=== PATIENT | male | born 1955 | race American Indian/Alaskan Native ===

== ENCOUNTER 2016-11-23 14:42 | Emergency (ER) | payer MEDICAID, OTHER ==
--- NOTE | 2016-11-23 14:59 | EDM.PDOC ---
ED HISTORY OF PRESENT ILLNESS - General Chief Complaint: Cardiovascular Problem Stated Complaint: DEFIBULATOR PROBLEMS Time Seen by Provider: 11/23/16 14:57 Source of Information: Reports: Patient History Limitations: Reports: No limitations - History of Present Illness INITIAL COMMENTS - FREE TEXT/NARRATIVE: 61 yo [place] Male w/ Implantable Defibrillator X 6 yrs c/o of a burning sensation and a humming sound @ 1400 hours. Pt. last interrogation of defibrillator 2016. Pt. denies shocks. Pt. admits to pain at area of defibrillator and goes to left shoulder and left side of neck. Pt. denies any N &V and No Sweating or SOB Symptom Onset Date: 11/23/16 Symptom Onset Time: 14:00 Timing/Duration: Reports: Hour(s): Severity: moderate Location, General: Reports: chest Quality: Reports: Burning (in area of defibrillator) - Related Data Allergies/ADRs: Allergies Allergy/AdvReac Type Severity Reaction Status Date / Time amoxicillin [Amoxicillin] Allergy Hives Verified 09/09/16 19:39 metronidazole [From Flagyl] Allergy Hives Verified 09/09/16 19:39 Metronidazole HCl Allergy Hives Verified 09/09/16 19:39 [From Flagyl] Home Meds: Home Meds Aspirin [Aspirin EC] 325 mg PO DAILY 09/13/13 [History] DULoxetine [Cymbalta] 30 mg PO DAILY 09/13/13 [History] Gabapentin [Neurontin] 300 mg PO BID 09/13/13 [History] Metoprolol Succinate [Toprol XL] 50 mg PO DAILY 09/13/13 [History] Multivitamin [Multivitamins] 1 each PO DAILY 09/13/13 [History] Simvastatin [Zocor] 10 mg PO DAILY 09/13/13 [History] Amiodarone HCl [Pacerone] 200 mg PO DAILY 02/11/15 [History] oxyCODONE HCl/Acetaminophen [oxyCODONE-Acetaminophen 10-325] 1 tab PO Q4HR PRN 07/18/16 [History] Levothyroxine Sodium [Synthroid] 25 mcg PO DAILY 08/10/16 [History] Clopidogrel [Plavix] 75 mg PO DAILY 09/09/16 [History] Past Medical History - Past Health History Medical/Surgical History: Denies Medical/Surgical History HEENT History: Reports: Impaired vision Other HEENT History: wears glasses Cardiovascular History: Reports: Angina, Arrhythmia, Automatic implantable cardioverter defibrillators, CAD, High cholesterol, Hypertension, [place], Pacemaker , Stents Respiratory History: Reports: Intubation, previous Gastrointestinal History: Reports: Cholelithiasis Genitourinary History: Reports: Chronic renal insuffiency, Other (see below) Other Genitourinary History: questionable kidney failure. Only 1 kidney, gave the other one away. Musculoskeletal History: Reports: Back pain, chronic, Fracture, Osteoarthritis Other Musculoskeletal History: Rt. shoulder reconstructed. Neurological History: Reports: CVA Psychiatric History: Reports: Anxiety, Depression, Panic attack, PTSD Endocrine/Metabolic History: Reports: Diabetes, type II, Obesity/BMI 30+ Hematologic History: Reports: None Immunologic History: Reports: None Dermatologic History: Reports: Cellulitis - Infectious Disease History Infectious Disease History: Reports: Hepatitis C - Past Surgical History Cardiovascular Surgical History: Reports: AICD, Pacer GI Surgical History: Reports: Appendectomy, Cholecystectomy Male Surgical History: Reports: Nephrectomy Social & Family History - Family History Family Medical History: Unobtainable Cardiac: Reports: Angina, CAD, Heart failure, High cholesterol, Hypertension, [place] GI: Reports: Cholelithiasis : Reports: Dialysis Neurological: Reports: CVA Endocrine/Metabolic: Reports: Diabetes, type II, Obesity/MBI 30+ - Tobacco Use Smoking Status *Q: Former Smoker Years of Tobacco use: 7 Packs/Tins Daily: 0.1 Used Tobacco, but Quit: No Month Tobacco Last Used: 02/18/14 Second Hand Smoke Exposure: No - Caffeine Use Caffeine Use: Reports: Coffee - Alcohol Use Days Per Week of Alcohol Use: 0 - Recreational Drug Use Recreational Drug Use: No Recreational Drug Type: Reports: Benzodiazepines, Marijuana/Hashish, Methamphetamine, Oxycodone Recreational Drug Use Frequency: Binges - Living Situation & Occupation Living situation: Reports: with family Occupation: unemployed ED ROS GENERAL - Review of Systems Review Of Systems: See Below Constitutional: Reports: no symptoms HEENT: Reports: No symptoms Respiratory: Reports: No Symptoms Cardiovascular: Reports: No symptoms Endocrine: Reports: no symptoms GI/Abdominal: Reports: No symptoms : Reports: no symptoms Musculoskeletal: Reports: muscle pain (left upper chest wall, shoulder and neck area) Skin: Reports: no symptoms Neurological: Reports: No Symptoms Psychiatric: Reports: No symptoms Hematologic/Lymphatic: Reports: no symptoms Immunologic: Reports: no symptoms ED EXAM, GENERAL - Physical Exam Exam: See Below Exam Limited By: No limitations General Appearance: alert, WD/WN, no apparent distress Eye Exam: bilateral eye: PERRL Ears: normal external exam Nose: normal inspection Throat/Mouth: Normal inspection, Normal lips Head: atraumatic, normocephalic Neck: normal inspection, supple, non-tender, full range of motion Respiratory/Chest: no respiratory distress, lungs clear Cardiovascular: normal peripheral pulses, regular rate, rhythm, no edema, no gallop, no JVD, no murmur, no rub Peripheral Pulses: 2+: carotid (L), carotid (R) GI/Abdominal: normal bowel sounds, soft, non tender Back Exam: normal inspection, full range of motion Extremities: normal inspection, normal range of motion, non-tender, no pedal edema, normal capillary refill Neurological: alert, oriented, CN II-XII intact, normal cognition Psychiatric: normal affect, normal mood Skin Exam: Warm, Dry, Intact, Normal color Lymphatic: no adenopathy Course - Vital Signs Last Recorded V/S: Last Vital Signs Temp 36.4 C 11/23/16 14:44 Pulse 62 11/23/16 14:44 Resp 16 11/23/16 14:44 BP 145/91 H 11/23/16 14:44 Pulse Ox 99 11/23/16 14:44 - Orders/Labs/Meds Orders: Active Orders 24 hr Category Date Time Status EKG 12 Lead [EKG Documentation Completion] [RC] URGENT Care 11/23/16 14:45 Active Chest 1V Frontal [CR] Urgent Exams 11/23/16 14:58 Taken Sodium Chloride 0.9% [Normal Saline] 1,000 ml Med 11/23/16 15:00 Active IV ASDIRECTED Medication Orders Sodium Chloride (Normal Saline) 1,000 mls @ 125 mls/hr IV ASDIRECTED CIELO Last Admin: 11/23/16 15:21 Dose: 125 mls/hr Labs: Laboratory Tests 11/23/16 11/23/16 11/23/16 Range/Units 15:05 15:05 15:05 WBC 5.9 (5.0-10.0) 10^3/uL RBC 4.93 (4.6-6.2) 10^6/uL Hgb 15.5 (14.0-18.0) g/dL Hct 45.0 (40.0-54.0) % MCV 91.3 (80-100) fL MCH 31.4 (27.0-34.0) pg MCHC 34.4 (33.0-35.0) g/dL Plt Count 163 (150-450) 10^3/uL Neut % (Auto) 59.4 (42.2-75.2) % Lymph % (Auto) 28.4 (20.5-50.1) % [place] % (Auto) 6.3 (2-8) % Eos % (Auto) 5.6 H (1.0-3.0) % Baso % (Auto) 0.3 (0.0-1.0) % PT 9.9 (9.0-12.0) SEC INR 1.0 (0.9-1.2) D-Dimer, Quantitative 147 (0-400) ng/mL Sodium 139 (135-145) mmol/L Potassium 4.4 (3.6-5.0) mmol/L Chloride 107 (101-111) mmol/L Carbon Dioxide 25.0 (21.0-31.0) mmol/L Anion Gap 11.4 BUN 12 (7-18) mg/dL Creatinine 1.0 (0.6-1.3) mg/dL Est Cr Clr Drug Dosing 71.74 mL/min Estimated GFR (MDRD) > 60 BUN/Creatinine Ratio 12.00 Glucose 122 H (74-105) mg/dL Calcium 8.9 (8.4-10.2) mg/dl Total Bilirubin 1.0 (0.2-1.0) mg/dL AST 41 (10-42) IU/L ALT 66 H (10-60) IU/L Alkaline Phosphatase 95 (42-121) IU/L Troponin I < 0.02 (0.00-0.02) ng/ml Total Protein 7.3 (6.7-8.2) g/dl Albumin 3.8 (3.2-5.5) g/dl Globulin 3.5 Albumin/Globulin Ratio 1.09 Meds: Medications Generic Name Dose Route Start Last Admin Trade Name Freq PRN Reason Stop Dose Admin Sodium Chloride 1,000 mls @ 125 mls/hr 11/23/16 15:00 11/23/16 15:21 Normal Saline IV 125 mls/hr ASDIRECTED CIELO Administration Departure - Departure Time of Disposition: 16:10 Disposition: Home, Self-Care 01 Condition: good Clinical Impression: Non-cardiac chest pain Forms: ED Department Discharge Additional Instructions: Rest For Anxiety - Try Ativan .5mg TID # 10 F/U w/ PCP - My Orders Last 24 Hours: My Active Orders 11/23/16 14:45 EKG 12 Lead [EKG Documentation Completion] [RC] URGENT 11/23/16 14:58 Chest 1V Frontal [CR] Urgent 11/23/16 15:00 Sodium Chloride 0.9% [Normal Saline] 1,000 ml IV ASDIRECTED - Assessment/Plan Last 24 Hours: My Active Orders 11/23/16 14:45 EKG 12 Lead [EKG Documentation Completion] [RC] URGENT 11/23/16 14:58 Chest 1V Frontal [CR] Urgent 11/23/16 15:00 Sodium Chloride 0.9% [Normal Saline] 1,000 ml IV ASDIRECTED
[2016-11-23] MEDS ORDERED: Sodium Chloride 0.9% 1,000 ML IV SCH (15:00)
[2016-11-23 15:16] VITALS: BP 145/91
[2016-11-23 15:33] LABS: CHLORIDE,CL 107 mmol/L (101-111); SODIUM,NA 139 mmol/L (135-145)
[2016-11-23] MEDS ORDERED: LORazepam 0.5 MG Tab PO ONE (16:50)
[2016-11-23] MEDS ORDERED: LORazepam 0.5 MG Tab ONE (16:50)
--- NOTE | 2016-12-02 10:09 | EKG ---
11/23/2016 - RADHA REDD - TIME: 1444 hours. EKG is paced rhythm. No other comments made because of the paced rhythm. [facility] /[id number]
== END 2016-11-23 17:45 | disposition home or self-care (01) ==
LOC: DL.ED 14:42
DX: R07.89 Other chest pain (principal); I25.10 Atherosclerotic heart disease of native coronary artery without angina pectoris; E78.00 Pure hypercholesterolemia, unspecified; I10 Essential (primary) hypertension; I25.2 Old myocardial infarction; M19.90 Unspecified osteoarthritis, unspecified site; F41.9 Anxiety disorder, unspecified; F32.9 Major depressive disorder, single episode, unspecified; E11.9 Type 2 diabetes mellitus without complications; E66.9 Obesity, unspecified; Z79.82 Long term (current) use of aspirin; Z79.899 Other long term (current) drug therapy; Z86.73 Personal history of transient ischemic attack (TIA), and cerebral infarction without residual deficits; Z90.49 Acquired absence of other specified parts of digestive tract; Z87.891 Personal history of nicotine dependence; Z88.1 Allergy status to other antibiotic agents; Z88.8 Allergy status to other drugs, medicaments and biological substances
CPT/HCPCS: 36415; 71010; 80053; 84484; 85025; 85379; 85610; 93005; 99284; J7030; A9270-GY

== ENCOUNTER 2016-12-25 21:36 | Emergency (ER) | payer MEDICAID, OTHER ==
[2016-12-25 21:56] VITALS: BP 166/82
[2016-12-25] MEDS ORDERED: Mupirocin Oint 22 GM Tube ONE (23:13)
[2016-12-25] MEDS ORDERED: Mupirocin Oint 22 GM Tube TOP ONE (23:13)
--- NOTE | 2016-12-25 23:13 | EDM.PDOC ---
ED HPI Skin/Rash - General Chief Complaint: Skin Complaint Stated Complaint: RETAINING FLUIDS/BREAKING OUT ON RIGHT LEG [id number] Time Seen by Provider: 12/25/16 21:55 Source: Reports: Patient History Limitations: Reports: No limitations - History of Present Illness INITIAL COMMENTS - FREE TEXT/NARRATIVE: c/o rash to lower legs, abdomen arms and buttock fold. has had rash to lower legs previously but past 3 days increasing areas on wrists moving up to forearms , notes [employer], similar area to back of his legs. Itching with red areas. legs feel swollen around red areas. No fevers. Pacemaker replaced on 12/10. 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 Location, Skin: Reports: abdomen, upper extremity, right, upper extremity, left , lower extremity, right, lower extremity, left Quality: Reports: Itching, Same as previous episode (kian wesley) Severity: mild Associated Symptoms: Denies: fever/chills - Related Data Allergies Allergy/AdvReac Type Severity Reaction Status Date / Time amoxicillin [Amoxicillin] Allergy Hives Verified 12/25/16 21:46 metronidazole [From Flagyl] Allergy Hives Verified 12/25/16 21:46 Metronidazole HCl Allergy Hives Verified 12/25/16 21:46 [From Flagyl] Home Meds: Ambulatory Orders Medication Instructions Recorded Confirmed Aspirin [Aspirin EC] 325 mg PO DAILY 09/13/13 12/25/16 DULoxetine [Cymbalta] 30 mg PO DAILY 09/13/13 12/25/16 Gabapentin [Neurontin] 300 mg PO BID 09/13/13 12/25/16 Metoprolol Succinate [Toprol XL] 50 mg PO DAILY 09/13/13 12/25/16 Multivitamin [Multivitamins] 1 each PO DAILY 09/13/13 12/25/16 Simvastatin [Zocor] 10 mg PO DAILY 09/13/13 12/25/16 Amiodarone HCl [Pacerone] 200 mg PO DAILY 02/11/15 12/25/16 oxyCODONE HCl/Acetaminophen 1 tab PO Q4HR PRN 07/18/16 12/25/16 [oxyCODONE-Acetaminophen 10-325] Levothyroxine Sodium [Synthroid] 25 mcg PO DAILY 08/10/16 12/25/16 Clopidogrel [Plavix] 75 mg PO DAILY 09/09/16 12/25/16 Past Medical History - Past Health History Medical/Surgical History: Denies Medical/Surgical History HEENT History: Reports: Impaired vision Other HEENT History: wears glasses Cardiovascular History: Reports: Angina, Arrhythmia, Automatic implantable cardioverter defibrillators, CAD, High cholesterol, Hypertension, [place], Pacemaker , Stents Respiratory History: Reports: Intubation, previous Gastrointestinal History: Reports: Cholelithiasis Genitourinary History: Reports: Chronic renal insuffiency, Other (see below) Other Genitourinary History: questionable kidney failure. Only 1 kidney, gave the other one away. Musculoskeletal History: Reports: Back pain, chronic, Fracture, Osteoarthritis Other Musculoskeletal History: Rt. shoulder reconstructed. Neurological History: Reports: CVA Psychiatric History: Reports: Anxiety, Depression, Panic attack, PTSD Endocrine/Metabolic History: Reports: Diabetes, type II, Obesity/BMI 30+ Hematologic History: Reports: None Immunologic History: Reports: None Dermatologic History: Reports: Cellulitis - Infectious Disease History Infectious Disease History: Reports: Hepatitis C - Past Surgical History Cardiovascular Surgical History: Reports: AICD, Pacer GI Surgical History: Reports: Appendectomy, Cholecystectomy Male Surgical History: Reports: Nephrectomy Social & Family History - Family History Family Medical History: Unobtainable Cardiac: Reports: Angina, CAD, Heart failure, High cholesterol, Hypertension, [place] GI: Reports: Cholelithiasis : Reports: Dialysis Neurological: Reports: CVA Endocrine/Metabolic: Reports: Diabetes, type II, Obesity/MBI 30+ - Tobacco Use Smoking Status *Q: Current Some Day Smoker Years of Tobacco use: 30 Packs/Tins Daily: 0.1 Used Tobacco, but Quit: No Month Tobacco Last Used: 02/18/14 Second Hand Smoke Exposure: No - Caffeine Use Caffeine Use: Reports: Coffee - Alcohol Use Days Per Week of Alcohol Use: 0 - Recreational Drug Use Recreational Drug Use: Yes Recreational Drug Type: Reports: Benzodiazepines, Marijuana/Hashish, Methamphetamine, Oxycodone Recreational Drug Use Frequency: Binges - Living Situation & Occupation Living situation: Reports: with family Occupation: unemployed ED ROS GENERAL - Review of Systems Review Of Systems: See Below HEENT: Reports: No symptoms Respiratory: Reports: No Symptoms Cardiovascular: Reports: No symptoms, Other (12/10 pacemaker replacement) Skin: Reports: pruritis (inner wrist upper arms, abdomen and sacral crease), rash, erythema (lower legs) Neurological: Reports: No Symptoms Psychiatric: Reports: No symptoms Hematologic/Lymphatic: Denies: easy bleeding, easy bruising ED EXAM, SKIN/RASH Exam: See Below Exam Limited By: No limitations General Appearance: alert, no apparent distress, obese Ears: normal external exam Nose: normal inspection Throat/Mouth: Normal inspection Head: atraumatic, normocephalic Neck: normal inspection, full range of motion. No: lymphadenopathy (L), lymphadenopathy (R) Respiratory/Chest: no respiratory distress, lungs clear, normal breath sounds Cardiovascular: normal peripheral pulses, regular rate, rhythm, other ( Pacemaker incsion CDI with steristrips, no redness) GI/Abdominal: soft Extremities: pedal edema (trace), increased warmth (lower anterior shins bilaterally), redness Neurological: alert, oriented Psychiatric: normal affect Skin: Warm, Dry, Rash (inner wrists bilaterally inner forearm right, outer uppr arm left, 3cmx 3cm red scaley patch right mid abdomen red rased sacral fold. inner wrists. red raised scabbed linear to forearm, lower legs anterior right [id number] red central crusting, petiechial outer rims left 3x5 red, petichial outer, red center, chronic vascualr changes on left ankle. no dependent rubor. pedal pulses present. ) Course - Vital Signs Last Recorded V/S: Last Vital Signs Temp 96.4 F 12/25/16 21:50 Pulse 65 12/25/16 21:50 Resp 20 12/25/16 21:50 BP 166/82 H 12/25/16 21:50 Pulse Ox 97 12/25/16 21:50 - Orders/Labs/Meds Labs: Laboratory Tests 12/25/16 12/25/16 12/25/16 Range/Units 22:35 22:35 22:35 WBC 7.7 (5.0-10.0) 10^3/uL RBC 4.89 (4.6-6.2) 10^6/uL Hgb 15.0 (14.0-18.0) g/dL Hct 44.6 (40.0-54.0) % MCV 91.2 (80-100) fL MCH 30.7 (27.0-34.0) pg MCHC 33.6 (33.0-35.0) g/dL Plt Count 180 (150-450) 10^3/uL Neut % (Auto) 57.7 (42.2-75.2) % Lymph % (Auto) 26.2 (20.5-50.1) % [place] % (Auto) 9.7 H (2-8) % Eos % (Auto) 6.1 H (1.0-3.0) % Baso % (Auto) 0.3 (0.0-1.0) % Sodium 134 L (135-145) mmol/L Potassium 4.2 (3.6-5.0) mmol/L Chloride 101 (101-111) mmol/L Carbon Dioxide 26.0 (21.0-31.0) mmol/L Anion Gap 11.2 BUN 23 H (7-18) mg/dL Creatinine 1.3 (0.6-1.3) mg/dL Est Cr Clr Drug Dosing 64.67 mL/min Estimated GFR (MDRD) 56 BUN/Creatinine Ratio 17.69 Glucose 102 (74-105) mg/dL Lactic Acid 0.5 (0.5-2.2) mmol/L Calcium 9.3 (8.4-10.2) mg/dl Total Bilirubin 1.6 H (0.2-1.0) mg/dL AST 35 (10-42) IU/L ALT 49 (10-60) IU/L Alkaline Phosphatase 94 (42-121) IU/L C-Reactive Protein (0.0-1.3) mg/dL Total Protein 8.0 (6.7-8.2) g/dl Albumin 4.4 (3.2-5.5) g/dl Globulin 3.6 Albumin/Globulin Ratio 1.22 05/04/17 Range/Units 22:35 WBC (5.0-10.0) 10^3/uL RBC (4.6-6.2) 10^6/uL Hgb (14.0-18.0) g/dL Hct (40.0-54.0) % MCV (80-100) fL MCH (27.0-34.0) pg MCHC (33.0-35.0) g/dL Plt Count (150-450) 10^3/uL Neut % (Auto) (42.2-75.2) % Lymph % (Auto) (20.5-50.1) % [place] % (Auto) (2-8) % Eos % (Auto) (1.0-3.0) % Baso % (Auto) (0.0-1.0) % Sodium (135-145) mmol/L Potassium (3.6-5.0) mmol/L Chloride (101-111) mmol/L Carbon Dioxide (21.0-31.0) mmol/L Anion Gap BUN (7-18) mg/dL Creatinine (0.6-1.3) mg/dL Est Cr Clr Drug Dosing mL/min Estimated GFR (MDRD) BUN/Creatinine Ratio Glucose (74-105) mg/dL Lactic Acid (0.5-2.2) mmol/L Calcium (8.4-10.2) mg/dl Total Bilirubin (0.2-1.0) mg/dL AST (10-42) IU/L ALT (10-60) IU/L Alkaline Phosphatase (42-121) IU/L C-Reactive Protein < 0.5 (0.0-1.3) mg/dL Total Protein (6.7-8.2) g/dl Albumin (3.2-5.5) g/dl Globulin Albumin/Globulin Ratio Meds: Medications Discontinued Medications Generic Name Dose Route Start Last Admin Trade Name Denae PRN Reason Stop Dose Admin Mupirocin Confirm 12/25/16 23:13 Bactroban Oint Administered 12/25/16 23:14 Dose 22 gm .ROUTE .STK-MED ONE Departure - Departure Time of Disposition: 23:07 Disposition: Home, Self-Care 01 Condition: good Clinical Impression: Scabies, S/P cardiac pacemaker procedure Cellulitis Qualifiers: Site of cellulitis: extremity Site of cellulitis of extremity: lower extremity Laterality: unspecified laterality Qualified Code(s): L03.119 - Cellulitis of unspecified part of limb Instructions: Scabies, Adult Referrals: Trav Shankar MD [Primary Care Provider] - Forms: ED Department Discharge Additional Instructions: muprocin cream to leg and abdominal open areas. Permethrin cream pply to body for 8 hours and then shower off Doxycycline 100mg one twice daily for one week follow up if increased redness, cardiology appointment tomorrow as scheduled.
== END 2016-12-25 23:24 | disposition home or self-care (01) ==
LOC: DL.ED 21:36
DX: B86 Scabies (principal); L03.119 Cellulitis of unspecified part of limb; I25.2 Old myocardial infarction; E78.00 Pure hypercholesterolemia, unspecified; I25.10 Atherosclerotic heart disease of native coronary artery without angina pectoris; I12.9 Hypertensive chronic kidney disease with stage 1 through stage 4 chronic kidney disease, or unspecified chronic kidney disease; N18.9 Chronic kidney disease, unspecified; F41.9 Anxiety disorder, unspecified; E66.9 Obesity, unspecified; F32.9 Major depressive disorder, single episode, unspecified; E11.9 Type 2 diabetes mellitus without complications; Z90.49 Acquired absence of other specified parts of digestive tract; F17.210 Nicotine dependence, cigarettes, uncomplicated; Z88.1 Allergy status to other antibiotic agents; Z88.8 Allergy status to other drugs, medicaments and biological substances; Z79.82 Long term (current) use of aspirin; Z79.899 Other long term (current) drug therapy
CPT/HCPCS: 36415; 80053; 83605; 85025; 86140; 99282; A9270-GY

== ENCOUNTER 2016-12-26 10:36 | Emergency (ER) | payer MEDICAID, OTHER ==
--- NOTE | 2016-12-26 10:47 | EDM.PDOC ---
ED HPI Skin/Rash - General Chief Complaint: General Stated Complaint: NOT FEELING GOOD Time Seen by Provider: 12/26/16 10:47 Source: Reports: Patient, Old records, RN, RN notes reviewed History Limitations: Reports: No limitations - History of Present Illness INITIAL COMMENTS - FREE TEXT/NARRATIVE: Pt c/o feeling very anxious since last night, and feels like he keeps having panic attacks. He was diagnosed with scabies yesterday and he is afraid that he could develop cellulitis and it could kill him. He was supposed to be in [place] at this time to have his pacemaker/ICD checked, but he was too anxious and scared to drive to [place]. He is also worried about his blood sugar, but hasn't checked it today. He also is worried that his kidneys could be failing, although he had labs with good BUN/Cr yesterday. Denies pain, fever, N/ V, or any other Sx's. Timing: Reports: still present Location, Skin: Reports: lower extremity, right, lower extremity, left Quality: Reports: Other (itching) Severity: moderate Known Identified Source: yes Sick Contact: yes (grandson with scabies) Associated Symptoms: Reports: no other symptoms Similar Symptoms Previously: yes Recent Medical Care: yes Treatments FIELD COORDINATOR: Reports: Other medication(s) - Related Data Allergies Allergy/AdvReac Type Severity Reaction Status Date / Time amoxicillin [Amoxicillin] Allergy Hives Verified 12/26/16 10:56 metronidazole [From Flagyl] Allergy Hives Verified 12/26/16 10:56 Metronidazole HCl Allergy Hives Verified 12/26/16 10:56 [From Flagyl] Home Meds: Ambulatory Orders Medication Instructions Recorded Confirmed Aspirin [Aspirin EC] 325 mg PO DAILY 09/13/13 12/26/16 DULoxetine [Cymbalta] 30 mg PO DAILY 09/13/13 12/26/16 Gabapentin [Neurontin] 300 mg PO BID 09/13/13 12/26/16 Metoprolol Succinate [Toprol XL] 50 mg PO DAILY 09/13/13 12/26/16 Multivitamin [Multivitamins] 1 each PO DAILY 09/13/13 12/26/16 Simvastatin [Zocor] 10 mg PO DAILY 09/13/13 12/26/16 Amiodarone HCl [Pacerone] 200 mg PO DAILY 02/11/15 12/26/16 oxyCODONE HCl/Acetaminophen 1 tab PO Q4HR PRN 07/18/16 12/26/16 [oxyCODONE-Acetaminophen 10-325] Levothyroxine Sodium [Synthroid] 25 mcg PO DAILY 08/10/16 12/26/16 Clopidogrel [Plavix] 75 mg PO DAILY 09/09/16 12/26/16 Past Medical History - Past Health History Medical/Surgical History: Denies Medical/Surgical History HEENT History: Reports: Impaired vision Other HEENT History: wears glasses Cardiovascular History: Reports: Angina, Arrhythmia, Automatic implantable cardioverter defibrillators, CAD, High cholesterol, Hypertension, [place], Pacemaker , Stents Respiratory History: Reports: Intubation, previous Gastrointestinal History: Reports: Cholelithiasis Genitourinary History: Reports: Chronic renal insuffiency, Other (see below) Other Genitourinary History: questionable kidney failure. Only 1 kidney, gave the other one away. Musculoskeletal History: Reports: Back pain, chronic, Fracture, Osteoarthritis Other Musculoskeletal History: Rt. shoulder reconstructed. Neurological History: Reports: CVA Psychiatric History: Reports: Anxiety, Depression, Panic attack, PTSD Endocrine/Metabolic History: Reports: Diabetes, type II, Obesity/BMI 30+ Hematologic History: Reports: None Immunologic History: Reports: None Dermatologic History: Reports: Cellulitis - Infectious Disease History Infectious Disease History: Reports: Hepatitis C - Past Surgical History Cardiovascular Surgical History: Reports: AICD, Pacer GI Surgical History: Reports: Appendectomy, Cholecystectomy Male Surgical History: Reports: Nephrectomy Social & Family History - Family History Family Medical History: Unobtainable Cardiac: Reports: Angina, CAD, Heart failure, High cholesterol, Hypertension, [place] GI: Reports: Cholelithiasis : Reports: Dialysis Neurological: Reports: CVA Endocrine/Metabolic: Reports: Diabetes, type II, Obesity/MBI 30+ - Tobacco Use Smoking Status *Q: Current Some Day Smoker Years of Tobacco use: 30 Packs/Tins Daily: 0.1 Used Tobacco, but Quit: No Month Tobacco Last Used: 02/18/14 Second Hand Smoke Exposure: No - Caffeine Use Caffeine Use: Reports: Coffee - Alcohol Use Days Per Week of Alcohol Use: 0 - Recreational Drug Use Recreational Drug Use: Yes Recreational Drug Type: Reports: Benzodiazepines, Marijuana/Hashish, Methamphetamine, Oxycodone Recreational Drug Use Frequency: Binges - Living Situation & Occupation Living situation: Reports: with family Occupation: unemployed ED ROS GENERAL - Review of Systems Review Of Systems: ROS reveals no pertinent complaints other than HPI. ED EXAM, SKIN/RASH Exam: See Below Exam Limited By: No limitations General Appearance: alert, WD/WN, no apparent distress, anxious, obese Ears: hearing grossly normal Nose: normal inspection, normal mucosa, no blood Throat/Mouth: Normal inspection, Normal voice, No airway compromise Head: atraumatic, normocephalic Neck: normal inspection Respiratory/Chest: no respiratory distress, lungs clear, normal breath sounds, no accessory muscle use, chest non-tender Cardiovascular: normal peripheral pulses, regular rate, rhythm, no edema, no gallop, no JVD, no murmur, no rub GI/Abdominal: normal bowel sounds, soft, non tender, no distention Back Exam: normal inspection Extremities: normal range of motion, non-tender, no pedal edema, normal capillary refill Neurological: alert, oriented, CN II-XII intact, normal cognition, normal gait ( walks with cane), no motor/sensory deficits Psychiatric: anxious Skin: Warm, Dry, Rash (excoriated rash to anterior lower extremities B/L, rough and excortiated rash to hands, wrist creases, and interdigital skin) Location, Skin: back, upper extremity, right, upper extremity, left, lower extremity, right, lower extremity, left, groin Characteristics: patchy Associated features: inflammation, rough Course - Vital Signs Last Recorded V/S: Last Vital Signs Temp 36.0 C 12/26/16 10:40 Pulse 71 12/26/16 10:40 Resp 18 12/26/16 10:40 BP 154/88 H 12/26/16 10:40 Pulse Ox - Orders/Labs/Meds Labs: Laboratory Tests 12/26/16 12/26/16 Range/Units 11:05 11:05 WBC 6.1 (5.0-10.0) 10^3/uL RBC 5.05 (4.6-6.2) 10^6/uL Hgb 15.5 (14.0-18.0) g/dL Hct 45.9 (40.0-54.0) % MCV 90.9 (80-100) fL MCH 30.7 (27.0-34.0) pg MCHC 33.8 (33.0-35.0) g/dL Plt Count 178 (150-450) 10^3/uL Neut % (Auto) 53.5 (42.2-75.2) % Lymph % (Auto) 27.0 (20.5-50.1) % [place] % (Auto) 11.5 H (2-8) % Eos % (Auto) 7.7 H (1.0-3.0) % Baso % (Auto) 0.3 (0.0-1.0) % Sodium 135 (135-145) mmol/L Potassium 4.3 (3.6-5.0) mmol/L Chloride 102 (101-111) mmol/L Carbon Dioxide 26.0 (21.0-31.0) mmol/L Anion Gap 11.3 BUN 25 H (7-18) mg/dL Creatinine 1.3 (0.6-1.3) mg/dL Est Cr Clr Drug Dosing 64.76 mL/min Estimated GFR (MDRD) 56 BUN/Creatinine Ratio 19.23 Glucose 109 H (74-105) mg/dL Calcium 9.4 (8.4-10.2) mg/dl Total Bilirubin 2.2 H (0.2-1.0) mg/dL AST 40 (10-42) IU/L ALT 52 (10-60) IU/L Alkaline Phosphatase 102 (42-121) IU/L Total Protein 8.1 (6.7-8.2) g/dl Albumin 4.5 (3.2-5.5) g/dl Globulin 3.6 Albumin/Globulin Ratio 1.25 Meds: Medications Discontinued Medications Generic Name Dose Route Start Last Admin Trade Name Freq PRN Reason Stop Dose Admin Bacitracin 1 dose 12/26/16 10:56 12/26/16 11:07 Bacitracin Oint 1 Gm TOP 12/26/16 10:57 1 dose ONETIME ONE Administration Bacitracin Confirm 12/26/16 11:12 12/26/16 11:19 Bacitracin Oint 1 Gm Administered 12/26/16 11:13 1 dose Dose Administration 1 dose .ROUTE .STK-MED ONE Lorazepam 1 mg 12/26/16 10:56 12/26/16 11:07 Ativan IM 05/05/17 10:57 1 mg ONETIME ONE Administration Departure - Departure Time of Disposition: 11:58 Disposition: Home, Self-Care 01 Condition: good Clinical Impression: Anxiety disorder due to general medical condition, Panic disorder, Scabies Instructions: Panic Attacks, [id number], Scabies, Adult Forms: ED Department Discharge Additional Instructions: Use the medications prescribed yesterday as instructed. Follow up with your doctor in 1 to 2 days.
[2016-12-26] MEDS ORDERED: LORazepam 2 MG/ML Syringe IM ONE (10:56)
[2016-12-26] MEDS ORDERED: Bacitracin Oint 1 GM U/D Packet TOP ONE (10:56)
[2016-12-26 11:01] VITALS: BP 154/88
[2016-12-26] MEDS ORDERED: Bacitracin Oint 1 GM U/D Packet ONE (11:12)
== END 2016-12-26 12:23 | disposition home or self-care (01) ==
LOC: DL.ED 10:36
DX: F41.0 Panic disorder [episodic paroxysmal anxiety] (principal); I25.10 Atherosclerotic heart disease of native coronary artery without angina pectoris; I25.2 Old myocardial infarction; E11.9 Type 2 diabetes mellitus without complications; F17.210 Nicotine dependence, cigarettes, uncomplicated; E66.9 Obesity, unspecified; Z90.49 Acquired absence of other specified parts of digestive tract; Z79.82 Long term (current) use of aspirin; Z79.899 Other long term (current) drug therapy; Z88.1 Allergy status to other antibiotic agents
CPT/HCPCS: 36415; 80053; 85025; 96372; 99283; J2060

== ENCOUNTER 2017-01-31 16:08 | Emergency (ER) | payer MEDICAID ==
--- NOTE | 2017-01-31 16:12 | EDM.PDOC ---
ED HPI GENERAL MEDICAL PROBLEM - General Chief Complaint: Respiratory Problem Stated Complaint: SOB,PACER INCISION INFECTED? Time Seen by Provider: 01/31/17 16:12 Source of Information: Reports: Patient, Old Records, RN, RN Notes Reviewed History Limitations: Reports: No Limitations - History of Present Illness INITIAL COMMENTS - FREE TEXT/NARRATIVE: Arrives from home to ER by POV with complaint of "possibly infected pacemaker site". Patient reports pain, redness, hot skin, and fluctuance to the area of swelling overlying the pace site. Denies fever or chills. Severity: Moderate Improves with: Reports: None Worsens with: Reports: None Associated Symptoms: Reports: No Other Symptoms - Related Data Allergies Allergy/AdvReac Type Severity Reaction Status Date / Time amoxicillin [Amoxicillin] Allergy Hives Verified 01/31/17 16:25 metronidazole [From Flagyl] Allergy Hives Verified 01/31/17 16:25 Metronidazole HCl Allergy Hives Verified 01/31/17 16:25 [From Flagyl] Home Meds: Home Meds Aspirin [Aspirin EC] 325 mg PO DAILY 09/13/13 [History] DULoxetine [Cymbalta] 30 mg PO DAILY 09/13/13 [History] Gabapentin [Neurontin] 300 mg PO BID 09/13/13 [History] Metoprolol Succinate [Toprol XL] 50 mg PO DAILY 09/13/13 [History] Multivitamin [Multivitamins] 1 each PO DAILY 09/13/13 [History] Simvastatin [Zocor] 10 mg PO DAILY 09/13/13 [History] Amiodarone HCl [Pacerone] 200 mg PO DAILY 02/11/15 [History] oxyCODONE HCl/Acetaminophen [oxyCODONE-Acetaminophen 10-325] 1 tab PO Q4HR PRN 07/18/16 [History] Levothyroxine Sodium [Synthroid] 25 mcg PO DAILY 08/10/16 [History] Clopidogrel [Plavix] 75 mg PO DAILY 09/09/16 [History] Past Medical History - Past Health History Medical/Surgical History: Denies Medical/Surgical History HEENT History: Reports: Impaired Vision Other HEENT History: wears glasses Cardiovascular History: Reports: Angina, Arrhythmia, Automatic Implantable Cardioverter Defibrillators, CAD, High Cholesterol, Hypertension, [place], Pacemaker , Stents Respiratory History: Reports: Intubation, Previous Gastrointestinal History: Reports: Cholelithiasis Genitourinary History: Reports: Chronic Renal Insuffiency, Other (See Below) Other Genitourinary History: questionable kidney failure. Only 1 kidney, gave the other one away. Musculoskeletal History: Reports: Back Pain, Chronic, Fracture, Osteoarthritis Other Musculoskeletal History: Rt. shoulder reconstructed. Neurological History: Reports: CVA Psychiatric History: Reports: Anxiety, Depression, Panic Attack, PTSD Endocrine/Metabolic History: Reports: Diabetes, Type II, Obesity/BMI 30+ Hematologic History: Reports: None Immunologic History: Reports: None Dermatologic History: Reports: Cellulitis - Infectious Disease History Infectious Disease History: Reports: Hepatitis C - Past Surgical History Cardiovascular Surgical History: Reports: AICD, Pacer GI Surgical History: Reports: Appendectomy, Cholecystectomy Male Surgical History: Reports: Nephrectomy Social & Family History - Family History Family Medical History: Unobtainable Cardiac: Reports: Angina, CAD, Heart Failure, High Cholesterol, Hypertension, [place] GI: Reports: Cholelithiasis : Reports: Dialysis Neurological: Reports: CVA Endocrine/Metabolic: Reports: Diabetes, type II, Obesity/MBI 30+ - Tobacco Use Smoking Status *Q: Current Some Day Smoker Years of Tobacco use: 30 Packs/Tins Daily: 0.1 Used Tobacco, but Quit: No Month Tobacco Last Used: 02/18/14 Second Hand Smoke Exposure: No - Caffeine Use Caffeine Use: Reports: Coffee - Alcohol Use Days Per Week of Alcohol Use: 0 - Recreational Drug Use Recreational Drug Use: Yes Recreational Drug Type: Reports: Benzodiazepines, Marijuana/Hashish, Methamphetamine, Oxycodone Recreational Drug Use Frequency: Binges - Living Situation & Occupation Living situation: Reports: with Family Occupation: Unemployed ED ROS GENERAL - Review of Systems Review Of Systems: ROS reveals no pertinent complaints other than HPI. ED EXAM, GENERAL - Physical Exam Exam: See Below Exam Limited By: No Limitations General Appearance: Anxious Eye Exam: Bilateral Eye: Normal Inspection Ears: Normal External Exam, Normal Canal, Hearing Grossly Normal, Normal TMs Nose: Normal Inspection, Normal Mucosa, No Blood Throat/Mouth: Normal Inspection, Normal Lips, Normal Teeth, Normal Gums, Normal Oropharynx, Normal Voice, No Airway Compromise Head: Atraumatic Neck: Other (tender to palpation at base of left neck. ) Respiratory/Chest: Other (tender overlying pacer site with mild erythema, increased warmth, mild swelling with fluctuant surface.) Cardiovascular: Normal Peripheral Pulses, Regular Rate, Rhythm, No Edema, No Gallop, No JVD, No Murmur, No Rub GI/Abdominal: Normal Bowel Sounds, Soft, Non-Tender, No Organomegaly, No Distention, No Abnormal Bruit, No Mass (Male) Exam: Deferred Rectal (Males) Exam: Deferred Back Exam: Normal Inspection, Full Range of Motion, NT Extremities: Normal Inspection, Normal Range of Motion, Non-Tender, Normal Capillary Refill, No Pedal Edema Neurological: Alert, Oriented, CN II-XII Intact, Normal Cognition, Normal Gait, Normal Reflexes, No Motor/Sensory Deficits Psychiatric: Anxious Lymphatic: No Adenopathy EKG INTERPRETATION EKG Date: 01/31/17 Time: 16:20 Rhythm: other (sinus rhythm) Rate (beats/min): 60 [place]: normal P-wave: present QRS: RBBB ST-T: normal QT: normal Course - Vital Signs Last Recorded V/S: Last Vital Signs Temp 36.4 C 01/31/17 17:23 Pulse 59 L 01/31/17 17:23 Resp 16 01/31/17 17:23 BP 143/85 H 01/31/17 17:23 Pulse Ox 98 01/31/17 17:23 - Orders/Labs/Meds Orders: Active Orders 24 hr Category Date Time Status EKG 12 Lead [EKG Documentation Completion] [RC] STAT Care 01/31/17 16:47 Active Labs: Laboratory Tests 01/31/17 01/31/17 01/31/17 Range/Units 16:47 16:47 16:47 WBC 6.2 (5.0-10.0) 10^3/uL RBC 4.97 (4.6-6.2) 10^6/uL Hgb 15.4 (14.0-18.0) g/dL Hct 45.7 (40.0-54.0) % MCV 92.0 (80-100) fL MCH 31.0 (27.0-34.0) pg MCHC 33.7 (33.0-35.0) g/dL Plt Count 172 (150-450) 10^3/uL Neut % (Auto) 57.7 (42.2-75.2) % Lymph % (Auto) 27.2 (20.5-50.1) % [place] % (Auto) 9.5 H (2-8) % Eos % (Auto) 5.1 H (1.0-3.0) % Baso % (Auto) 0.5 (0.0-1.0) % Sodium 139 (135-145) mmol/L Potassium 4.1 (3.6-5.0) mmol/L Chloride 111 (101-111) mmol/L Carbon Dioxide 24.0 (21.0-31.0) mmol/L Anion Gap 8.1 BUN 14 (7-18) mg/dL Creatinine 1.4 H (0.6-1.3) mg/dL Est Cr Clr Drug Dosing 60.05 mL/min Estimated GFR (MDRD) 51 BUN/Creatinine Ratio 10.00 Glucose 94 (74-105) mg/dL Calcium 8.7 (8.4-10.2) mg/dl Total Bilirubin 0.7 (0.2-1.0) mg/dL AST 27 (10-42) IU/L ALT 37 (10-60) IU/L Alkaline Phosphatase 104 (42-121) IU/L C-Reactive Protein 0.5 (0.0-1.3) mg/dL Total Protein 7.2 (6.7-8.2) g/dl Albumin 3.9 (3.2-5.5) g/dl Globulin 3.3 Albumin/Globulin Ratio 1.18 Departure - Departure Time of Disposition: 17:35 Disposition: DC/Tfer to Acute Hospital 02 Condition: serious Clinical Impression: Infected pacemaker Qualifiers: Encounter type: initial encounter Qualified Code(s): T82.7XXA - Infection and inflammatory reaction due to other cardiac and vascular devices, implants and grafts, initial encounter - Discharge Information Forms: ED Department Discharge, Interfacility Transfer EMTALA - My Orders Last 24 Hours: My Active Orders 01/31/17 16:47 EKG 12 Lead [EKG Documentation Completion] [RC] STAT - Assessment/Plan Last 24 Hours: My Active Orders 01/31/17 16:47 EKG 12 Lead [EKG Documentation Completion] [RC] STAT
[2017-01-31 17:23] VITALS: BP 143/85
--- NOTE | 2017-02-23 09:43 | EKG ---
01/31/2017- RADHA REDD - This is a standard 12-lead EKG showing normal sinus rhythm, ventricular rate 60 beats per minute. Right bundle branch block. Normal UT interval and QRS duration. No ST-T changes. [facility] /[id number]
== END 2017-01-31 18:31 ==
LOC: DL.ED 16:08
DX: T82.7XXA Infection and inflammatory reaction due to other cardiac and vascular devices, implants and grafts, initial encounter (principal); I25.10 Atherosclerotic heart disease of native coronary artery without angina pectoris; I12.9 Hypertensive chronic kidney disease with stage 1 through stage 4 chronic kidney disease, or unspecified chronic kidney disease; N18.9 Chronic kidney disease, unspecified; E11.22 Type 2 diabetes mellitus with diabetic chronic kidney disease; H54.7 Unspecified visual loss; E78.00 Pure hypercholesterolemia, unspecified; Z86.73 Personal history of transient ischemic attack (TIA), and cerebral infarction without residual deficits; F41.9 Anxiety disorder, unspecified; F32.9 Major depressive disorder, single episode, unspecified; E66.9 Obesity, unspecified; Z90.49 Acquired absence of other specified parts of digestive tract; F17.210 Nicotine dependence, cigarettes, uncomplicated; Z98.890 Other specified postprocedural states; Z88.1 Allergy status to other antibiotic agents; Z79.82 Long term (current) use of aspirin; Z79.899 Other long term (current) drug therapy; Z68.36 Body mass index [BMI] 36.0-36.9, adult
CPT/HCPCS: 36415; 80053; 85025; 86140; 93005; 99285

== ENCOUNTER 2017-06-27 13:41 | Emergency (ER) | payer MEDICAID ==
[2017-06-27 13:52] VITALS: BP 154/72
[2017-06-27] MEDS ORDERED: Sodium Chloride 0.9% 10 ML Syringe FLUSH PRN (14:18)
[2017-06-27 14:58] LABS: CHLORIDE,CL 104 mmol/L (101-111); SODIUM,NA 138 mmol/L (135-145)
[2017-06-27] MEDS ORDERED: Sodium Chloride 0.9% 1,000 ML IV ONE (16:18)
[2017-06-27] MEDS ORDERED: methylPREDNISolone Sodium Succinate 125 MG/2 ML SDV IVPUSH ONE (16:18)
--- NOTE | 2017-06-28 12:28 | EKG ---
06/27/2017 - RADHA REDD - This 12-lead EKG shows normal sinus rhythm with right bundle branch block. No significant ST elevation or ST depression noted on this 12-lead EKG. [facility] /[id number]
--- NOTE | 2017-06-30 09:00 | EDM.PDOC ---
Scribed by Elvira Baldwin 06/27/17 2726 for Daphne Gastelum NP ED HPI GENERAL MEDICAL PROBLEM - General Chief Complaint: Skin Complaint Stated Complaint: NOT FEELING GOOD, DIZZY, FALLING DOWN Time Seen by Provider: 06/27/17 14:11 Source of Information: Reports: Patient, RN, RN Notes Reviewed History Limitations: Reports: No Limitations - History of Present Illness INITIAL COMMENTS - FREE TEXT/NARRATIVE: Pt presents to the ER with c/o dizziness and generalized weakness. He states he fell a few days ago, and hit his pacemaker at that time. He states it is very tender around the site of the pacemaker. He also c/o a pruritic rash to upper and lower extremities bilaterally. He is very vague with complaints. He also admits to fever, chills, nausea, vomiting, diarrhea, chest pains at times, and sob at times. He states he has been resting most of the week because he feels too dizzy and weak when he is up. Bilateral Leg Pain Score (Numeric/FACES): 8 - Related Data Allergies Allergy/AdvReac Type Severity Reaction Status Date / Time amoxicillin [Amoxicillin] Allergy Hives Verified 01/31/17 16:25 metronidazole [From Flagyl] Allergy Hives Verified 01/31/17 16:25 Metronidazole HCl Allergy Hives Verified 01/31/17 16:25 [From Flagyl] Home Meds: Home Meds Aspirin [Aspirin EC] 325 mg PO DAILY 09/13/13 [History] DULoxetine [Cymbalta] 30 mg PO DAILY 09/13/13 [History] Gabapentin [Neurontin] 300 mg PO BID 09/13/13 [History] Metoprolol Succinate [Toprol XL] 50 mg PO DAILY 09/13/13 [History] Multivitamin [Multivitamins] 1 each PO DAILY 09/13/13 [History] Simvastatin [Zocor] 10 mg PO DAILY 09/13/13 [History] Amiodarone HCl [Pacerone] 200 mg PO DAILY 02/11/15 [History] oxyCODONE HCl/Acetaminophen [oxyCODONE-Acetaminophen 10-325] 1 tab PO Q4HR PRN 07/18/16 [History] Levothyroxine Sodium [Synthroid] 25 mcg PO DAILY 08/10/16 [History] Clopidogrel [Plavix] 75 mg PO DAILY 09/09/16 [History] Past Medical History - Past Health History Medical/Surgical History: Denies Medical/Surgical History HEENT History: Reports: Impaired Vision Other HEENT History: wears glasses Cardiovascular History: Reports: Angina, Arrhythmia, Automatic Implantable Cardioverter Defibrillators, CAD, High Cholesterol, Hypertension, [place], Pacemaker , Stents Respiratory History: Reports: Intubation, Previous Gastrointestinal History: Reports: Cholelithiasis, Hepatitis (C) Genitourinary History: Reports: Chronic Renal Insuffiency, Other (See Below) Other Genitourinary History: questionable kidney failure. Only 1 kidney, gave the other one away. Musculoskeletal History: Reports: Back Pain, Chronic, Fracture, Osteoarthritis Other Musculoskeletal History: Rt. shoulder reconstructed. Neurological History: Reports: CVA Psychiatric History: Reports: Anxiety, Depression, Panic Attack, PTSD Endocrine/Metabolic History: Reports: Diabetes, Type II, Obesity/BMI 30+ Hematologic History: Reports: None Immunologic History: Reports: None Dermatologic History: Reports: Cellulitis - Infectious Disease History Infectious Disease History: Reports: Hepatitis C - Past Surgical History Cardiovascular Surgical History: Reports: AICD, Pacer GI Surgical History: Reports: Appendectomy, Cholecystectomy Male Surgical History: Reports: Nephrectomy Social & Family History - Family History Family Medical History: Unobtainable Cardiac: Reports: Angina, CAD, Heart Failure, High Cholesterol, Hypertension, [place] GI: Reports: Cholelithiasis : Reports: Dialysis Neurological: Reports: CVA Endocrine/Metabolic: Reports: Diabetes, type II, Obesity/MBI 30+ - Tobacco Use Smoking Status *Q: Current Some Day Smoker Years of Tobacco use: 30 Packs/Tins Daily: 0.1 Used Tobacco, but Quit: No Month Tobacco Last Used: 02/18/14 Second Hand Smoke Exposure: No - Caffeine Use Caffeine Use: Reports: Coffee - Alcohol Use Days Per Week of Alcohol Use: 0 - Recreational Drug Use Recreational Drug Use: Yes Recreational Drug Type: Reports: Benzodiazepines, Marijuana/Hashish, Methamphetamine, Oxycodone Recreational Drug Use Frequency: Binges - Living Situation & Occupation Living situation: Reports: with Family Occupation: Unemployed ED ROS GENERAL - Review of Systems Review Of Systems: ROS reveals no pertinent complaints other than HPI. ED EXAM, SKIN/RASH Exam: See Below Exam Limited By: No Limitations General Appearance: Alert, WD/WN, No Apparent Distress Eye Exam: Bilateral Eye: Normal Inspection Ears: Normal External Exam, Hearing Grossly Normal Nose: Normal Inspection Throat/Mouth: Normal Inspection, Normal Oropharynx, Normal Voice, No Airway Compromise Head: Atraumatic, Normocephalic, Other (scalp tenderness) Neck: Normal Inspection, Supple, Non-Tender, Full Range of Motion Respiratory/Chest: No Respiratory Distress, Lungs Clear, Normal Breath Sounds, No Accessory Muscle Use, Chest Non-Tender Cardiovascular: Normal Peripheral Pulses, Regular Rate, Rhythm, No Edema, No Gallop, No JVD, No Murmur, No Rub Peripheral Pulses: 2+: Radial (L), Radial (R) GI/Abdominal: Normal Bowel Sounds, Soft, Non-Tender (Male) Exam: Deferred Rectal (Males) Exam: Deferred Back Exam: Normal Inspection, Full Range of Motion Extremities: Normal Inspection, Normal Range of Motion, Non-Tender, No Pedal Edema, Normal Capillary Refill Neurological: Alert, Oriented, Normal Cognition, No Motor/Sensory Deficits Psychiatric: Depressed Mood, Flat Affect Skin: Warm, Dry, Erythema, Excoriations, Petechiae, Rash, Other (purpura appearing rash to all 4 extremities. Excoriation and open areas. ) Location, Skin: Upper Extremity, Right, Upper Extremity, Left, Lower Extremity, Right, Lower Extremity, Left Characteristics: Petechial, Erythematous Associated features: Warmth Lymphatic: No Adenopathy EKG INTERPRETATION EKG Date: 06/27/17 Time: 14:05 Rhythm: Other (sinus rhythm) Rate (Beats/Min): 60 [place]: Normal P-Wave: Present QRS: RBBB (+) ST-T: Normal QT: Normal Course - Vital Signs Last Recorded V/S: Last Vital Signs Temp 98.2 F 06/27/17 16:38 Pulse 52 L 06/27/17 16:38 Resp 18 06/27/17 16:38 BP 154/72 H 06/27/17 13:51 Pulse Ox 99 06/27/17 16:38 - Orders/Labs/Meds Labs: Laboratory Tests 06/27/17 06/27/17 06/27/17 Range/Units 14:30 14:30 14:30 WBC 7.7 (5.0-10.0) 10^3/uL RBC 4.75 (4.6-6.2) 10^6/uL Hgb 14.2 (14.0-18.0) g/dL Hct 43.1 (40.0-54.0) % MCV 90.7 (80-100) fL MCH 29.9 (27.0-34.0) pg MCHC 32.9 L (33.0-35.0) g/dL Plt Count 147 L (150-450) 10^3/uL Neut % (Auto) 63.2 (42.2-75.2) % Lymph % (Auto) 19.1 L (20.5-50.1) % [place] % (Auto) 11.9 H (2-8) % Eos % (Auto) 5.5 H (1.0-3.0) % Baso % (Auto) 0.3 (0.0-1.0) % ESR (0-15) mm/hr Sodium 138 (135-145) mmol/L Potassium 4.2 (3.6-5.0) mmol/L Chloride 104 (101-111) mmol/L Carbon Dioxide 22.0 (21.0-31.0) mmol/L Anion Gap 16.2 BUN 19 H (7-18) mg/dL Creatinine 1.3 (0.6-1.3) mg/dL Est Cr Clr Drug Dosing 70.42 mL/min Estimated GFR (MDRD) 56 BUN/Creatinine Ratio 14.61 Glucose 101 (74-105) mg/dL Calcium 9.1 (8.4-10.2) mg/dl Total Bilirubin 1.4 H (0.2-1.0) mg/dL AST 34 (10-42) IU/L ALT 38 (10-60) IU/L Alkaline Phosphatase 101 (42-121) IU/L Creatine Kinase 280 H (26-174) IU/L Creatine Kinase Index 1.6 (0-2.4) % CK-MB (CK-2) 4.40 (0.4-4.7) ng/mL Troponin I < 0.02 (0.00-0.02) ng/ml C-Reactive Protein (0.0-1.3) mg/dL Total Protein 7.4 (6.7-8.2) g/dl Albumin 4.2 (3.2-5.5) g/dl Globulin 3.2 Albumin/Globulin Ratio 1.31 Urine Color (YELLOW) Urine Appearance (CLEAR) Urine pH (5.0-9.0) Ur Specific [place] (1.005-1.030) Urine Protein (NEGATIVE) Urine Glucose (UA) (NEGATIVE) Urine Ketones (NEGATIVE) Urine Occult Blood (NEGATIVE) Urine Nitrite (NEGATIVE) Urine Bilirubin (NEGATIVE) Urine Urobilinogen (0.2-1.0) mg/dL Ur Leukocyte Esterase (NEGATIVE) Urine RBC /HPF Urine WBC (0-5/HPF) /HPF Ur Epithelial Cells /HPF Urine Bacteria (0-FEW/HPF) /HPF Urine Mucus /LPF 06/27/17 06/27/17 06/27/17 Range/Units 14:30 14:30 15:22 WBC (5.0-10.0) 10^3/uL RBC (4.6-6.2) 10^6/uL Hgb (14.0-18.0) g/dL Hct (40.0-54.0) % MCV (80-100) fL MCH (27.0-34.0) pg MCHC (33.0-35.0) g/dL Plt Count (150-450) 10^3/uL Neut % (Auto) (42.2-75.2) % Lymph % (Auto) (20.5-50.1) % [place] % (Auto) (2-8) % Eos % (Auto) (1.0-3.0) % Baso % (Auto) (0.0-1.0) % ESR 4 (0-15) mm/hr Sodium (135-145) mmol/L Potassium (3.6-5.0) mmol/L Chloride (101-111) mmol/L Carbon Dioxide (21.0-31.0) mmol/L Anion Gap BUN (7-18) mg/dL Creatinine (0.6-1.3) mg/dL Est Cr Clr Drug Dosing mL/min Estimated GFR (MDRD) BUN/Creatinine Ratio Glucose (74-105) mg/dL Calcium (8.4-10.2) mg/dl Total Bilirubin (0.2-1.0) mg/dL AST (10-42) IU/L ALT (10-60) IU/L Alkaline Phosphatase (42-121) IU/L Creatine Kinase (26-174) IU/L Creatine Kinase Index (0-2.4) % CK-MB (CK-2) (0.4-4.7) ng/mL Troponin I (0.00-0.02) ng/ml C-Reactive Protein 0.5 (0.0-1.3) mg/dL Total Protein (6.7-8.2) g/dl Albumin (3.2-5.5) g/dl Globulin Albumin/Globulin Ratio Urine Color Yellow (YELLOW) Urine Appearance Slightly cloudy (CLEAR) Urine pH 5.5 (5.0-9.0) Ur Specific [place] 1.025 (1.005-1.030) Urine Protein 100 H (NEGATIVE) Urine Glucose (UA) Negative (NEGATIVE) Urine Ketones Negative (NEGATIVE) Urine Occult Blood Trace-intact H (NEGATIVE) Urine Nitrite Negative (NEGATIVE) Urine Bilirubin Negative (NEGATIVE) Urine Urobilinogen 1.0 (0.2-1.0) mg/dL Ur Leukocyte Esterase Negative (NEGATIVE) Urine RBC 0-5 /HPF Urine WBC 0-5 (0-5/HPF) /HPF Ur Epithelial Cells Rare /HPF Urine Bacteria Rare (0-FEW/HPF) /HPF Urine Mucus Few H /LPF Meds: Medications Discontinued Medications Generic Name Dose Route Start Last Admin Trade Name Freq PRN Reason Stop Dose Admin Sodium Chloride 1,000 mls @ 999 mls/hr 06/27/17 16:18 06/27/17 16:33 Normal Saline IV 06/27/17 17:18 999 mls/hr .BOLUS ONE Administration Methylprednisolone Sodium Succinate 125 mg 06/27/17 16:18 06/27/17 16:34 Solu-Medrol IVPUSH 06/27/17 16:19 125 mg ONETIME ONE Administration Sodium Chloride 10 ml 06/27/17 14:18 06/27/17 15:21 Saline Flush FLUSH 10 ml ASDIRECTED PRN Administration Keep Vein Open - Radiology Interpretation Free Text/Narrative:: Chest x-ray. No evidence for acute abnormality in the chest. Per rad report. Departure - Departure Time of Disposition: 16:43 Disposition: Home, Self-Care 01 Condition: Fair Clinical Impression: Vasculitis, Generalized weakness - Discharge Information Instructions: Weakness, [id number], Vasculitis, Prednisone tablets Referrals: Trav Shankar MD [Primary Care Provider] - Forms: ED Department Discharge Additional Instructions: Drink plenty of water. RX: Prednisone FOllow up with your primary care facility Follow up with your Press Shop Supervisor I have read and agree with the documentation that has been completed regarding this visit. By signing this record, I attest that the documentation was completed in my physical presence and is an accurate record of the encounter.
== END 2017-06-27 17:02 | disposition home or self-care (01) ==
LOC: DL.ED 13:41
DX: I77.6 Arteritis, unspecified (principal); R53.1 Weakness; I12.9 Hypertensive chronic kidney disease with stage 1 through stage 4 chronic kidney disease, or unspecified chronic kidney disease; E11.22 Type 2 diabetes mellitus with diabetic chronic kidney disease; N18.9 Chronic kidney disease, unspecified; I25.10 Atherosclerotic heart disease of native coronary artery without angina pectoris; M19.90 Unspecified osteoarthritis, unspecified site; E66.9 Obesity, unspecified; F17.210 Nicotine dependence, cigarettes, uncomplicated; Z79.82 Long term (current) use of aspirin; Z88.1 Allergy status to other antibiotic agents; Z95.0 Presence of cardiac pacemaker; Z95.5 Presence of coronary angioplasty implant and graft; Z79.899 Other long term (current) drug therapy
CPT/HCPCS: 36415; 71010; 80053; 81001; 82550; 82553; 84484; 85025; 85651; 86140; 93005; 96374; 99285; J2930; J7030; J7050

== ENCOUNTER 2018-12-16 05:37 | Emergency (ER) | payer MEDICAID ==
[2018-12-16 05:46] VITALS: BP 121/81; PULSE 59
--- NOTE | 2018-12-16 06:04 | EDM.PDOC ---
ED HPI GENERAL MEDICAL PROBLEM - General Chief Complaint: Neurological Problem Stated Complaint: AMBULANCE-STROKE CODE Time Seen by Provider: 12/16/18 05:37 Source of Information: Reports: Patient History Limitations: Reports: No Limitations - History of Present Illness INITIAL COMMENTS - FREE TEXT/NARRATIVE: ED vai [facility] with report of possible CVA. Patient last well at 0130 sitting up reading , 0430 found by daughter lying on closet floor face down. No reported weakness by family, EMS report some right facial. Patient confused daughter notes has not been. Prior CVA in May. Also received stents to heart around that time.Patient lives with daughter , independent with activities. No obvious injuries reported by EMS. Glucose 107 on scene. Family deny hx of drug or alcohol use. - Related Data Allergies Allergy/AdvReac Type Severity Reaction Status Date / Time amoxicillin [Amoxicillin] Allergy Hives Verified 07/18/18 09:31 metronidazole [From Flagyl] Allergy Hives Verified 07/18/18 09:31 Metronidazole HCl Allergy Hives Verified 07/18/18 09:31 [From Flagyl] Home Meds: Home Meds Aspirin [Aspirin EC] 325 mg PO DAILY 09/13/13 [History] DULoxetine [Cymbalta] 60 mg PO DAILY 09/13/13 [History] Metoprolol Succinate [Toprol XL] 50 mg PO DAILY 09/13/13 [History] Clopidogrel [Plavix] 75 mg PO DAILY 09/09/16 [History] Isosorbide Mononitrate [Isosorbide Mononitrate ER] 30 mg PO DAILY 07/18/18 [ History] Levothyroxine [Synthroid] 100 mcg PO DAILY 07/18/18 [History] atorvaSTATin [Lipitor] 40 mg PO DAILY 07/18/18 [History] Past Medical History - Past Health History Medical/Surgical History: Denies Medical/Surgical History HEENT History: Reports: Impaired Vision Other HEENT History: wears glasses Cardiovascular History: Reports: Angina, Arrhythmia, Automatic Implantable Cardioverter Defibrillators, CAD, High Cholesterol, Hypertension, [place], Pacemaker , Stents Respiratory History: Reports: Intubation, Previous Gastrointestinal History: Reports: Cholelithiasis, Hepatitis (C) Genitourinary History: Reports: Chronic Renal Insuffiency, Other (See Below) Other Genitourinary History: questionable kidney failure. Only 1 kidney, gave the other one away. Musculoskeletal History: Reports: Back Pain, Chronic, Fracture, Osteoarthritis Other Musculoskeletal History: Rt. shoulder reconstructed. Neurological History: Reports: CVA Psychiatric History: Reports: Anxiety, Depression, Panic Attack, PTSD Endocrine/Metabolic History: Reports: Diabetes, Type II, Obesity/BMI 30+ Hematologic History: Reports: None Immunologic History: Reports: None Dermatologic History: Reports: Cellulitis Other Dermatologic History: severe rash to the legs, - Infectious Disease History Infectious Disease History: Reports: Hepatitis C - Past Surgical History Cardiovascular Surgical History: Reports: AICD, Pacer GI Surgical History: Reports: Appendectomy, Cholecystectomy Male Surgical History: Reports: Nephrectomy Social & Family History - Family History Family Medical History: Unobtainable Cardiac: Reports: Angina, CAD, Heart Failure, High Cholesterol, Hypertension, [place] GI: Reports: Cholelithiasis : Reports: Dialysis Neurological: Reports: CVA Endocrine/Metabolic: Reports: Diabetes, type II, Obesity/MBI 30+ - Caffeine Use Caffeine Use: Reports: Coffee - Living Situation & Occupation Living situation: Reports: , with Family Occupation: Retired ED ROS GENERAL - Review of Systems Review Of Systems: See Below Constitutional: Reports: Weakness (legs weak at times). Denies: Fever, Chills HEENT: Reports: Glasses Respiratory: Reports: No Symptoms Cardiovascular: Reports: No Symptoms GI/Abdominal: Reports: No Symptoms : Reports: No Symptoms Musculoskeletal: Reports: No Symptoms Skin: Reports: No Symptoms Neurological: Reports: Confusion, Tingling (right cheek). Denies: Pre-Existing Deficit, Trouble Speaking ED EXAM, NEURO - Physical Exam Exam: See Below Exam Limited By: No Limitations General Appearance: Other (intermittent ddrowsy wake periods, ) Eye Exam: Bilateral Eye: EOMI (3), Normal Fundi Ears: Normal External Exam, Hearing Grossly Normal Nose: Normal Inspection Throat/Mouth: Normal Inspection, Normal Lips Head Exam: Atraumatic, Normocephalic, Other (slight decrease sensation right anterior cheek). No: Facial Tenderness Respiratory/Chest: No Respiratory Distress, Lungs Clear, Normal Breath Sounds Cardiovascular: Normal Peripheral Pulses, Regular Rate, Rhythm GI/Abdominal: Normal Bowel Sounds, Soft Neurological: Abnormal Finger to Nose (decreased strength left upper to move finger to nose), Abnormal Sensation (right cheek and left shoulder tingling), Other (Bilaterlal lower extremity weakness, speech clear responses slow. with delay, and some repetative. Able to identify month, could not ID date or year, "after thanksgiving" , Questioned current date, Reported Thursday and repeated multiple times Thursday need to get medications refilled. ). No: Oriented x 3, No Response to Pain Extremities: No Pedal Edema. No: Normal Range of Motion, Leg Pain Psychiatric: Normal Affect Skin Exam: Warm, Dry, Intact Course - Vital Signs Last Recorded V/S: Last Vital Signs Temp 97.9 F 12/16/18 05:33 Pulse 59 L 12/16/18 05:33 Resp 17 12/16/18 05:33 BP 121/81 12/16/18 05:33 Pulse Ox 98 12/16/18 05:33 - Orders/Labs/Meds Orders: Active Orders 24 hr Category Date Time Status EKG Documentation Completion [RC] URGENT Care 12/16/18 05:27 Active Labs: Laboratory Tests 12/16/18 12/16/18 12/16/18 Range/Units 05:33 05:46 05:46 WBC 6.4 (5.0-10.0) 10^3/uL RBC 4.75 (4.6-6.2) 10^6/uL Hgb 14.4 D (14.0-18.0) g/dL Hct 42.2 (40.0-54.0) % MCV 88.8 D (80-100) fL MCH 30.3 (27.0-34.0) pg MCHC 34.1 (33.0-35.0) g/dL Plt Count 139 L (150-450) 10^3/uL Neut % (Auto) 50.5 (42.2-75.2) % Lymph % (Auto) 26.3 (20.5-50.1) % [place] % (Auto) 11.6 H (2-8) % Eos % (Auto) 11.3 H (1.0-3.0) % Baso % (Auto) 0.3 (0.0-1.0) % PT 10.2 (9.0-12.0) SEC INR 1.0 (0.9-1.2) Sodium (135-145) mmol/L Potassium (3.6-5.0) mmol/L Chloride (101-111) mmol/L Carbon Dioxide (21.0-31.0) mmol/L Anion Gap BUN (7-18) mg/dL Creatinine (0.6-1.3) mg/dL Est Cr Clr Drug Dosing mL/min Estimated GFR (MDRD) BUN/Creatinine Ratio Glucose (74-105) mg/dL POC Glucose 121 H (70-105) mg/dl Calcium (8.4-10.2) mg/dl Total Bilirubin (0.2-1.0) mg/dL AST (10-42) IU/L ALT (10-60) IU/L Alkaline Phosphatase (42-121) IU/L Troponin I (0.00-0.02) ng/ml Total Protein (6.7-8.2) g/dl Albumin (3.2-5.5) g/dl Globulin Albumin/Globulin Ratio Urine Color (YELLOW) Urine Appearance (CLEAR) Urine pH (5.0-9.0) Ur Specific [place] (1.005-1.030) Urine Protein (NEGATIVE) Urine Glucose (UA) (NEGATIVE) Urine Ketones (NEGATIVE) Urine Occult Blood (NEGATIVE) Urine Nitrite (NEGATIVE) Urine Bilirubin (NEGATIVE) Urine Urobilinogen (0.2-1.0) mg/dL Ur Leukocyte Esterase (NEGATIVE) Urine RBC /HPF Urine WBC (0-5/HPF) /HPF Ur Epithelial Cells /HPF Amorphous Sediment (0/HPF) /HPF Urine Bacteria (0-FEW/HPF) /HPF Hyaline Casts /LPF Urine Mucus /LPF Urine Opiates Screen (NEGATIVE) Ur Oxycodone Screen (NEGATIVE) Urine Methadone Screen (NEGATIVE) Ur Barbiturates Screen (NEGATIVE) U Tricyclic Antidepress (NEGATIVE) Ur Phencyclidine Scrn (NEGATIVE) Ur Amphetamine Screen (NEGATIVE) U Methamphetamines Scrn (NEGATIVE) Urine MDMA Screen (NEGATIVE) U Benzodiazepines Scrn (NEGATIVE) Urine Cocaine Screen (NEGATIVE) U Marijuana (THC) Screen (NEGATIVE) 12/16/18 12/16/18 12/16/18 Range/Units 05:46 05:47 05:47 WBC (5.0-10.0) 10^3/uL RBC (4.6-6.2) 10^6/uL Hgb (14.0-18.0) g/dL Hct (40.0-54.0) % MCV (80-100) fL MCH (27.0-34.0) pg MCHC (33.0-35.0) g/dL Plt Count (150-450) 10^3/uL Neut % (Auto) (42.2-75.2) % Lymph % (Auto) (20.5-50.1) % [place] % (Auto) (2-8) % Eos % (Auto) (1.0-3.0) % Baso % (Auto) (0.0-1.0) % PT (9.0-12.0) SEC INR (0.9-1.2) Sodium 136 (135-145) mmol/L Potassium 4.0 (3.6-5.0) mmol/L Chloride 102 (101-111) mmol/L Carbon Dioxide 24.0 (21.0-31.0) mmol/L Anion Gap 14.0 BUN 14 (7-18) mg/dL Creatinine 1.0 (0.6-1.3) mg/dL Est Cr Clr Drug Dosing 84.34 mL/min Estimated GFR (MDRD) > 60 BUN/Creatinine Ratio 14.00 Glucose 118 H (74-105) mg/dL POC Glucose (70-105) mg/dl Calcium 8.3 L (8.4-10.2) mg/dl Total Bilirubin 1.4 H (0.2-1.0) mg/dL AST 39 (10-42) IU/L ALT 42 (10-60) IU/L Alkaline Phosphatase 116 (42-121) IU/L Troponin I < 0.02 (0.00-0.02) ng/ml Total Protein 6.9 (6.7-8.2) g/dl Albumin 3.6 (3.2-5.5) g/dl Globulin 3.3 Albumin/Globulin Ratio 1.09 Urine Color Yellow (YELLOW) Urine Appearance Slightly cloudy (CLEAR) Urine pH 5.5 (5.0-9.0) Ur Specific [place] 1.025 (1.005-1.030) Urine Protein 30 H (NEGATIVE) Urine Glucose (UA) Negative (NEGATIVE) Urine Ketones Trace H (NEGATIVE) Urine Occult Blood Negative (NEGATIVE) Urine Nitrite Negative (NEGATIVE) Urine Bilirubin Small H (NEGATIVE) Urine Urobilinogen 4.0 H (0.2-1.0) mg/dL Ur Leukocyte Esterase Negative (NEGATIVE) Urine RBC 0-5 /HPF Urine WBC 0-5 (0-5/HPF) /HPF Ur Epithelial Cells Rare /HPF Amorphous Sediment Few (0/HPF) /HPF Urine Bacteria Rare (0-FEW/HPF) /HPF Hyaline Casts Occasional H /LPF Urine Mucus Few H /LPF Urine Opiates Screen Negative (NEGATIVE) Ur Oxycodone Screen Negative (NEGATIVE) Urine Methadone Screen Negative (NEGATIVE) Ur Barbiturates Screen Negative (NEGATIVE) U Tricyclic Antidepress Negative (NEGATIVE) Ur Phencyclidine Scrn Negative (NEGATIVE) Ur Amphetamine Screen Negative (NEGATIVE) U Methamphetamines Scrn Negative (NEGATIVE) Urine MDMA Screen Negative (NEGATIVE) U Benzodiazepines Scrn Negative (NEGATIVE) Urine Cocaine Screen Negative (NEGATIVE) U Marijuana (THC) Screen Negative (NEGATIVE) - Radiology Interpretation Free Text/Narrative:: Head CT netavie for acute findings See report - Re-Assessments/Exams Free Text/Narrative Re-Assessment/Exam: 12/16/18 07:30 TC Iza Ansari . Accepting of patient in transfer. Tx LRAS. Status stable. Neuro unchanged from admission. Departure - Departure Time of Disposition: 07:20 Disposition: DC/Tfer to [facility] 02 Clinical Impression: CVA, Cerebrovascular accident - Discharge Information *PRESCRIPTION DRUG MONITORING PROGRAM REVIEWED*: No *COPY OF PRESCRIPTION DRUG MONITORING REPORT IN PATIENT TIFFANIE: No Referrals: PCP,None [Primary Care Provider] - Forms: ED Department Discharge - My Orders Last 24 Hours: My Active Orders 12/16/18 05:27 EKG Documentation Completion [RC] URGENT - Assessment/Plan Last 24 Hours: My Active Orders 12/16/18 05:27 EKG Documentation Completion [RC] URGENT
[2018-12-16 06:22] LABS: CHLORIDE,CL 102 mmol/L (101-111); SODIUM,NA 136 mmol/L (135-145)
== END 2018-12-16 06:50 ==
LOC: DL.ED 05:37
DX: I63.9 Cerebral infarction, unspecified (principal); I10 Essential (primary) hypertension; I25.2 Old myocardial infarction; F41.9 Anxiety disorder, unspecified; F32.9 Major depressive disorder, single episode, unspecified; Z79.899 Other long term (current) drug therapy; Z88.1 Allergy status to other antibiotic agents
CPT/HCPCS: 36415; 70450; 80053; 80305-QW; 81001; 82962; 84484; 85025; 85610; 93005; 99285-25

== ENCOUNTER 2019-11-23 15:16 | Emergency (ER) | payer SELFPAY ==
--- NOTE | 2019-11-23 15:17 | EDM.PDOC ---
ED HPI GENERAL MEDICAL PROBLEM - General Chief Complaint: Neuro Symptoms/Deficits Stated Complaint: AMBULANCE: STROKE CODE Time Seen by Provider: 11/23/19 15:17 Source of Information: Reports: Patient, EMS, Old Records, RN, RN Notes Reviewed History Limitations: Reports: No Limitations - History of Present Illness INITIAL COMMENTS - FREE TEXT/NARRATIVE: Pt arrives from home by [facility] with report of "Stroke Code" per EMS. Pt's daughter called 911 to report pt has had persistent left arm and leg weakness since he woke at 0430HRS this morning, 11/23/19. Pt states he woke around 0230HRS and tried to read, but he had a mild headache and his vision was "not right". He felt his vision was faded in the left periphery, and he felt he was seeing as if he was "cross eyed". Pt currently reports normal vision. He denies slurred speech, swallowing difficulty, aphasia, syncope, palpitations, fever, cough, or vomiting. He denies any recent travel, or contact with any confirmed or suspected Covid-19 individuals. Onset: Today, Unknown/Unsure Onset Date: 11/23/19 (Last known well time: 0430HRS) Duration: Constant Location: Reports: Upper Extremity, Left, Lower Extremity, Left Severity: Moderate Improves with: Reports: None Worsens with: Reports: None Left Shoulder Pain Score (Numeric/FACES): 7 - Related Data Allergies Allergy/AdvReac Type Severity Reaction Status Date / Time amoxicillin [Amoxicillin] Allergy Hives Verified 11/23/19 16:07 metronidazole [From Flagyl] Allergy Hives Verified 11/23/19 16:07 Metronidazole HCl Allergy Hives Verified 11/23/19 16:07 [From Flagyl] Home Meds: Home Meds Aspirin [Aspirin EC] 325 mg PO DAILY 09/13/13 [History] DULoxetine [Cymbalta] 60 mg PO DAILY 09/13/13 [History] Metoprolol Succinate [Toprol XL] 50 mg PO DAILY 09/13/13 [History] Clopidogrel [Plavix] 75 mg PO DAILY 09/09/16 [History] Isosorbide Mononitrate [Isosorbide Mononitrate ER] 30 mg PO DAILY 07/18/18 [ History] Levothyroxine [Synthroid] 100 mcg PO DAILY 07/18/18 [History] atorvaSTATin [Lipitor] 40 mg PO DAILY 07/18/18 [History] Past Medical History - Past Health History Medical/Surgical History: Denies Medical/Surgical History HEENT History: Reports: Impaired Vision Other HEENT History: wears glasses Cardiovascular History: Reports: Angina, Arrhythmia, Automatic Implantable Cardioverter Defibrillators, CAD, High Cholesterol, Hypertension, SD, Pacemaker , Stents Respiratory History: Reports: Intubation, Previous Gastrointestinal History: Reports: Cholelithiasis, Hepatitis (C) Genitourinary History: Reports: Chronic Renal Insuffiency, Other (See Below) Other Genitourinary History: questionable kidney failure. Only 1 kidney, gave the other one away. Musculoskeletal History: Reports: Back Pain, Chronic, Fracture, Osteoarthritis Other Musculoskeletal History: Rt. shoulder reconstructed. Neurological History: Reports: CVA Psychiatric History: Reports: Anxiety, Depression, Panic Attack, PTSD Endocrine/Metabolic History: Reports: Diabetes, Type II, Obesity/BMI 30+ Hematologic History: Reports: None Immunologic History: Reports: None Dermatologic History: Reports: Cellulitis Other Dermatologic History: severe rash to the legs, - Infectious Disease History Infectious Disease History: Reports: Hepatitis C - Past Surgical History Cardiovascular Surgical History: Reports: AICD, Pacer GI Surgical History: Reports: Appendectomy, Cholecystectomy Male Surgical History: Reports: Nephrectomy Social & Family History - Family History Family Medical History: Unobtainable Cardiac: Reports: Angina, CAD, Heart Failure, High Cholesterol, Hypertension, SD GI: Reports: Cholelithiasis : Reports: Dialysis Neurological: Reports: CVA Endocrine/Metabolic: Reports: Diabetes, type II, Obesity/MBI 30+ - Caffeine Use Caffeine Use: Reports: Coffee - Living Situation & Occupation Living situation: Reports: , with Family Occupation: Retired ED ROS GENERAL - Review of Systems Review Of Systems: Comprehensive ROS is negative, except as noted in HPI. ED EXAM, NEURO - Physical Exam Exam: See Below Exam Limited By: No Limitations General Appearance: Alert, No Apparent Distress, Obese Eye Exam: Bilateral Eye: EOMI, PERRL Ears: Normal External Exam, Hearing Grossly Normal Nose: Normal Inspection, Normal Mucosa, No Blood Throat/Mouth: Normal Lips, Normal Oropharynx, Normal Voice, No Airway Compromise , Other (Chronically poor dentition) Head Exam: Atraumatic, Normocephalic Neck: Normal Inspection, Supple, Non-Tender, Full Range of Motion. No: Carotid Bruit, Lymphadenopathy (L), Lymphadenopathy (R) Respiratory/Chest: No Respiratory Distress, Lungs Clear, Normal Breath Sounds, No Accessory Muscle Use, Other (tender overlying and around left upper lateral chest pacer site, no swelling, bruising, erythema, or increased warmth) Cardiovascular: Regular Rate, Rhythm, No Edema GI/Abdominal: Normal Bowel Sounds, Soft, Non-Tender, No Distention, No Abnormal Bruit (Male) Exam: Deferred Rectal (Males) Exam: Deferred Neurological: Alert, Normal Mood/Affect, Normal Dorsiflexion, CN II-XII Intact, Normal Plantar Flexion, Oriented x 3, Ataxia (Left lower extremity, unable to do heel to connell), Abnormal Motor (Left upper and lower extremity weakness), Other (NIH score: 3, left arm and left weak, left leg ataxia) Back Exam: Normal Inspection Extremities: Normal Range of Motion, No Pedal Edema, Normal Capillary Refill. No: Joint Swelling Psychiatric: Normal Affect, Normal Mood Skin Exam: Warm, Dry, Intact, Normal Color, No Rash EKG INTERPRETATION EKG Date: 11/23/19 Time: 15:31 Rhythm: Other (PACED, no further interpretation) Comparison: No Change Course - Vital Signs Last Recorded V/S: Last Vital Signs Temp 97 F 11/23/19 15:25 Pulse 70 11/23/19 15:25 Resp 13 11/23/19 15:25 BP 118/78 11/23/19 15:25 Pulse Ox 97 11/23/19 15:25 - Orders/Labs/Meds Orders: Active Orders 24 hr Category Date Time Status Blood Glucose Check, Bedside [RC] ONETIME Care 11/23/19 15:12 Active EKG 12 Lead [EKG Documentation Completion] [RC] STAT Care 11/23/19 15:18 Active NIH Stroke Scale [RC] ASDIRECTED Care 11/23/19 15:19 Active Peripheral IV Care [] . DIRECTED Care 11/23/19 15:19 Active COMPREHENSIVE METABOLIC PN,CMP [CHEM] Stat Lab 11/23/19 15:47 Received DRUG SCREEN URINE BIORAD [URCHEM] Stat Lab 11/23/19 15:18 Ordered ETHANOL BLOOD MEDICAL [CHEM] Stat Lab 11/23/19 15:47 Received INR,PT,PROTHROMBIN TIME [COAG] Stat Lab 11/23/19 15:47 Received LACTIC ACID [CHEM] Stat Lab 11/23/19 15:47 Received MAGNESIUM [CHEM] Stat Lab 11/23/19 15:47 Received PTT,PARTIAL THROMBOPLSTIN TIME [COAG] Stat Lab 11/23/19 15:47 Received TROPONIN I [CHEM] Stat Lab 11/23/19 15:47 Received UA RFX SIDDHARTH AND CULT IF INDIC [URIN] Stat Lab 11/23/19 15:19 Ordered Sodium Chloride 0.9% [Saline Flush] Med 11/23/19 15:19 Active 10 ml FLUSH ASDIRECTED PRN Peripheral IV Insertion Adult [OM.PC] Stat Oth 11/23/19 15:17 Ordered Medication Orders Sodium Chloride (Saline Flush) 10 ml FLUSH ASDIRECTED PRN PRN Reason: Keep Vein Open Labs: Laboratory Tests 11/23/19 11/23/19 Range/Units 15:17 15:47 WBC 6.8 (5.0-10.0) 10^3/uL RBC 4.58 L (4.6-6.2) 10^6/uL Hgb 13.9 L (14.0-18.0) g/dL Hct 41.0 (40.0-54.0) % MCV 89.5 (80-100) fL MCH 30.3 (27.0-34.0) pg MCHC 33.9 (33.0-35.0) g/dL Plt Count 163 (150-450) 10^3/uL Neut % (Auto) 64.5 (42.2-75.2) % Lymph % (Auto) 19.1 L (20.5-50.1) % [place] % (Auto) 9.5 H (2-8) % Eos % (Auto) 6.6 H (1.0-3.0) % Baso % (Auto) 0.3 (0.0-1.0) % POC Glucose 132 H (70-105) mg/dl Meds: Medications Generic Name Dose Route Start Last Admin Trade Name Freq PRN Reason Stop Dose Admin Sodium Chloride 10 ml 11/23/19 15:19 Saline Flush FLUSH ASDIRECTED PRN Keep Vein Open - Radiology Interpretation Free Text/Narrative:: CT Head: no acute IC hemorrhage, or acute findings, chronic multi-infarct ischemic changes per radiologist phoned report at 15:30HRS. XR Chest: no acute process, pacer and leads seen. Departure - Departure Time of Disposition: 16:10 Disposition: DC/Tfer to Acute Hospital 02 Condition: Serious Clinical Impression: CVA (cerebral vascular accident) Qualifiers: CVA mechanism: unspecified Qualified Code(s): I63.9 - Cerebral infarction, unspecified - Discharge Information *PRESCRIPTION DRUG MONITORING PROGRAM REVIEWED*: No *COPY OF PRESCRIPTION DRUG MONITORING REPORT IN PATIENT TIFFANIE: No Forms: ED Department Discharge, Interfacility Transfer EMTALA Sepsis Event Note - Focused Exam Vital Signs: Vital Signs Temp Pulse Resp BP Pulse Ox 11/23/19 15:25 97 F 70 13 118/78 97 Date Exam was Performed: 11/23/19 Time Exam was Performed: 16:10 - My Orders Last 24 Hours: My Active Orders 11/23/19 15:12 Blood Glucose Check, Bedside [RC] ONETIME 11/23/19 15:17 Peripheral IV Insertion Adult [OM.PC] Stat 11/23/19 15:18 EKG 12 Lead [EKG Documentation Completion] [RC] STAT DRUG SCREEN URINE BIORAD [URCHEM] Stat 11/23/19 15:19 NIH Stroke Scale [RC] ASDIRECTED Peripheral IV Care [RC] . DIRECTED UA RFX SIDDHARTH AND CULT IF INDIC [URIN] Stat Sodium Chloride 0.9% [Saline Flush] 10 ml FLUSH ASDIRECTED PRN 11/23/19 15:47 COMPREHENSIVE METABOLIC PN,CMP [CHEM] Stat ETHANOL BLOOD MEDICAL [CHEM] Stat INR,PT,PROTHROMBIN TIME [COAG] Stat LACTIC ACID [CHEM] Stat MAGNESIUM [CHEM] Stat PTT,PARTIAL THROMBOPLSTIN TIME [COAG] Stat TROPONIN I [CHEM] Stat - Assessment/Plan Last 24 Hours: My Active Orders 11/23/19 15:12 Blood Glucose Check, Bedside [RC] ONETIME 11/23/19 15:17 Peripheral IV Insertion Adult [OM.PC] Stat 11/23/19 15:18 EKG 12 Lead [EKG Documentation Completion] [RC] STAT DRUG SCREEN URINE BIORAD [URCHEM] Stat 11/23/19 15:19 NIH Stroke Scale [RC] ASDIRECTED Peripheral IV Care [RC] . DIRECTED UA RFX SIDDHARTH AND CULT IF INDIC [URIN] Stat Sodium Chloride 0.9% [Saline Flush] 10 ml FLUSH ASDIRECTED PRN 11/23/19 15:47 COMPREHENSIVE METABOLIC PN,CMP [CHEM] Stat ETHANOL BLOOD MEDICAL [CHEM] Stat INR,PT,PROTHROMBIN TIME [COAG] Stat LACTIC ACID [CHEM] Stat MAGNESIUM [CHEM] Stat PTT,PARTIAL THROMBOPLSTIN TIME [COAG] Stat TROPONIN I [CHEM] Stat
[2019-11-23] MEDS ORDERED: Sodium Chloride 0.9% 10 ML Syringe FLUSH PRN (15:19)
--- NOTE | 2019-11-23 15:45 | CT ---
EXAMINATION: Head wo Cont SEX: Male AGE: [address] head results reported to ER physician at 1530 hours. CLINICAL HISTORY: 64-year-old obese male reported to have LEFT-SIDED WEAKNESS upon awakening at 0430 hours a.m. Scan technique: Volume acquisition of data emergency unenhanced CT scan of the head and brain obtained with patient lying supine on the Siemens multi slice scanner [place], [place]. All data archived in the PACS system for storage, reformatting axial/sagittal/coronal planes and study (bone/brain windows). Interpretation: 1. Uniformly thick bony calvarium and symmetric clear pneumatization of the mastoid sinuses. Abnormal mucoperiosteal inflammatory thickening the right maxillary, ethmoid and frontal sinuses i.e. ortiz sinusitis. 2. Atrophy and scattered small microvascular ischemic lesions throughout the periventricular white matter both cerebral hemispheres. No geographic infarct or signs of encephalomalacia. No arachnoid cyst. 3. No supratentorial or posterior fossa mass lesion. Cerebellum and brainstem unremarkable. Physiologic midline pineal and symmetric choroid plexus calcifications. 4. No hydrocephalus. 5. Cerebellum and brainstem unremarkable. 6. No sign of acute intracerebral/intraventricular/subarachnoid bleed. 7. No abnormal extracerebral/intracranial epidural or subdural hematoma. CONCLUSION: Pansinusitis. Multi-infarct ischemic disease. No intracranial mass, hydrocephalus or bleed.
--- NOTE | 2019-11-23 15:48 | CR ---
EXAMINATION: Chest 1V Frontal SEX: Male AGE: 64 years CLINICAL HISTORY: 64-year-old male clinical "stroke". Rule out aspiration. Interpretation: Negative exam. Cardiac pacemaker (pacer leads intact and unchanged since 18 July 2018. External or nurse manager leads. Normal cardiac silhouette. No pulmonary vascular congestion, cephalization of vascular flow, alveolar edema or dependent effusion. No no lung mass, hilar lymphadenopathy or focal lobar pneumonia. No infiltrate, atelectasis or collapse. No pneumothorax or pneumomediastinum. No air trapping. CONCLUSION: No acute new cardiopulmonary abnormality.
[2019-11-23 16:07] VITALS: BP 118/78; PULSE 70
[2019-11-23 16:12] LABS: PTT,PARTIAL THROMBOPLSTIN TIME 30.7 SEC (22.0-34.0)
[2019-11-23 16:16] LABS: CHLORIDE,CL 101 mmol/L (98-107); SODIUM,NA 137 mmol/L (136-145)
== END 2019-11-23 16:45 ==
LOC: DL.ED 15:16
DX: I63.9 Cerebral infarction, unspecified (principal); E11.22 Type 2 diabetes mellitus with diabetic chronic kidney disease; I12.9 Hypertensive chronic kidney disease with stage 1 through stage 4 chronic kidney disease, or unspecified chronic kidney disease; N18.9 Chronic kidney disease, unspecified; F41.9 Anxiety disorder, unspecified; F32.9 Major depressive disorder, single episode, unspecified; E66.9 Obesity, unspecified; Z68.33 Body mass index [BMI] 33.0-33.9, adult; Z79.82 Long term (current) use of aspirin; Z79.899 Other long term (current) drug therapy; Z88.0 Allergy status to penicillin; Z88.8 Allergy status to other drugs, medicaments and biological substances; Z88.1 Allergy status to other antibiotic agents
CPT/HCPCS: 36415; 70450; 71045; 80053; 80307; 82962; 83605; 83735; 84484; 85025; 85610; 85730; 93005; 99285; 99285-25

== ENCOUNTER 2020-10-30 20:25 | Emergency (ER) | payer MEDICARE, MEDICAID ==
[2020-10-30 20:36] VITALS: BP 140/77; PULSE 106
--- NOTE | 2020-10-30 21:09 | CT ---
PROCEDURE INFORMATION: Exam: CT Head Without Contrast Exam date and time: 10/30/2020 8:41 PM Age: 65 years old Clinical indication: Other: R/O stroke TECHNIQUE: Imaging protocol: Computed tomography of the head without contrast. Radiation optimization: All CT scans at this facility use at least one of these dose optimization techniques: automated exposure control; mA and/or kV adjustment per patient size (includes targeted exams where dose is matched to clinical indication); or iterative reconstruction. COMPARISON: CT Head wo Cont 11/23/2019 3:22 PM FINDINGS: Brain: Normal. No hemorrhage. Unremarkable white matter. No mass effect. Cerebral ventricles: No ventriculomegaly. Bones/joints: Unremarkable. No acute fracture. Paranasal sinuses: mucosal thickening in the bilateral ethmoid and maxillary sinuses. Mastoid air cells: Visualized mastoid air cells are well aerated. Soft tissues: Unremarkable. IMPRESSION: No stroke. Chronic sinusitis
[2020-10-30 21:13] LABS: CORONAVIRUS COVID-19 NAA NEGATIVE (NEGATIVE)
[2020-10-30 21:18] LABS: ANION GAP 14.3 mEq/L (7-13); CHLORIDE,CL 100 mmol/L (98-107); SODIUM,NA 137 mmol/L (136-145)
[2020-10-30] MEDS ORDERED: Sodium Chloride 0.9% 1,000 ML IV ONE (21:26)
[2020-10-30] MEDS ORDERED: Iopamidol 612 MG/ML 100 ML Bottle IVPUSH ONE (21:26)
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
[2020-10-30 21:47] LABS: PTT,PARTIAL THROMBOPLSTIN TIME 31.3 SEC (22.0-34.0)
--- NOTE | 2020-10-30 22:13 | CT ---
PROCEDURE INFORMATION: Exam: CT Chest With Contrast; Diagnostic Exam date and time: 10/30/2020 9:31 PM Age: 65 years old Clinical indication: Other: Crackles and rales to bilateral lobes; Wbc 13.5; Prior surgery TECHNIQUE: Imaging protocol: Diagnostic computed tomography of the chest with contrast. Radiation optimization: All CT scans at this facility use at least one of these dose optimization techniques: automated exposure control; mA and/or kV adjustment per patient size (includes targeted exams where dose is matched to clinical indication); or iterative reconstruction. Contrast material: [id number]; Contrast volume: 75 ml; Contrast route: INTRAVENOUS (IV); COMPARISON: CR Chest 1V Frontal 07/18/2018 10:14 AM FINDINGS: Tubes, catheters and devices: Left pacemaker properly positioned. Lungs: Pulmonary infiltrates along the posterior aspect of the lingula, medial and posterior segments of the right lower lobe and inferior aspect of the right upper lobe. Pleural spaces: Unremarkable. No pneumothorax. No pleural effusion. Heart: Unremarkable. No cardiomegaly. No pericardial effusion. Aorta: Unremarkable. No aortic aneurysm. Lymph nodes: Unremarkable. No enlarged lymph nodes. Gallbladder and bile ducts: Cholecystectomy. Bones/joints: The spine is degenerative. Soft tissues: Unremarkable. IMPRESSION: Pulmonary infiltrates along the posterior aspect of the lingula, medial and posterior segments of the right lower lobe and inferior aspect of the right upper lobe. Multilobar pneumonia is suspect
[2020-10-30] MEDS ORDERED: Levofloxacin/Dextrose 5%-Water 750 MG in Premix Bag 1 BAG IV ONE (22:28)
== END 2020-10-30 23:28 ==
LOC: DL.ED 20:25
DX: T82.7XXA Infection and inflammatory reaction due to other cardiac and vascular devices, implants and grafts, initial encounter (principal); J18.9 Pneumonia, unspecified organism; I12.9 Hypertensive chronic kidney disease with stage 1 through stage 4 chronic kidney disease, or unspecified chronic kidney disease; E11.22 Type 2 diabetes mellitus with diabetic chronic kidney disease; N18.9 Chronic kidney disease, unspecified; R79.89 Other specified abnormal findings of blood chemistry; R00.0 Tachycardia, unspecified; I25.10 Atherosclerotic heart disease of native coronary artery without angina pectoris; E78.00 Pure hypercholesterolemia, unspecified; I25.2 Old myocardial infarction; M19.90 Unspecified osteoarthritis, unspecified site; E66.9 Obesity, unspecified; Z68.38 Body mass index [BMI] 38.0-38.9, adult; Z86.73 Personal history of transient ischemic attack (TIA), and cerebral infarction without residual deficits; Z72.0 Tobacco use; Z88.0 Allergy status to penicillin; Z88.1 Allergy status to other antibiotic agents; Z79.82 Long term (current) use of aspirin; Z79.02 Long term (current) use of antithrombotics/antiplatelets; Z79.899 Other long term (current) drug therapy; Z20.822 Contact with and (suspected) exposure to COVID-19
CPT/HCPCS: 0240U; 36415; 70450; 71260; 80053; 80305; 80307; 81001; 82962; 83605; 83735; 83880; 84484; 85025; 85610; 85730; 93005; 93010; 99284; 99285; J1956; J7030; Q9967

== ENCOUNTER 2020-11-16 10:21 | Inpatient (IN) | payer MEDICARE, MEDICAID ==
[2020-11-16] MEDS ORDERED: 50% Dextrose in Water 50 ML Syringe IV PRN (17:41)
[2020-11-16] MEDS ORDERED: Glucagon,Human Recombinant 1 MG Vial IM PRN (17:41)
--- NOTE | 2020-11-16 17:55 | PCM.HP ---
H&P History of Present Illness - General Date of Service: 11/16/20 Admit Problem/Dx: Admission Diagnosis/Problem Admission Diagnosis/Problem Endocarditis - History of Present Illness Initial Comments - Free Text/Narative: 65M w/ pmh CAD s/p AICD, DM2, HT, s/p nephrectomy as donor, hx CVA, CKD3 originally presented to ER w/ sepsis 2/2 cellulitis of AICD pocket and pneumonia, transferred to [facility] where ALEKSANDRA demonstrated endocarditis of an AICD lead, transferred to [facility] for lead extraction now here for Swing Bed for terminal clerk IV abx. No organism was ever isolated and so pt is recommended for 6 weeks of IV vanco and cefepime starting on 11/10. He reports some post op pain after long ambulance ride. generalized Pain Score (Numeric/FACES): 8 - Related Data Allergies/Adverse Reactions: Allergies Allergy/AdvReac Type Severity Reaction Status Date / Time amoxicillin [Amoxicillin] Allergy Hives Verified 11/16/20 17:08 ampicillin Allergy Other Verified 11/16/20 17:08 metronidazole [From Flagyl] Allergy Hives Verified 11/16/20 17:08 Metronidazole HCl Allergy Hives Verified 11/16/20 17:08 [From Flagyl] Penicillins Allergy Other Verified 11/16/20 17:08 Home Medications: Home Meds DULoxetine [Cymbalta] 60 mg PO DAILY 09/13/13 [History] Metoprolol Succinate [Toprol XL] 50 mg PO DAILY 09/13/13 [History] Levothyroxine [Synthroid] 100 mcg PO DAILY 07/18/18 [History] atorvaSTATin [Lipitor] 40 mg PO DAILY 07/18/18 [History] Aspirin 81 mg PO DAILY 11/16/20 [History] Aspirin 81 mg PO DAILY 11/16/20 [History] Carboxymethylcellulose Sodium [Refresh Tears 0.5%] 1 drop EYEBOTH TID PRN 11/16/20 [History] Gabapentin [Neurontin] 300 mg PO TID 11/16/20 [History] oxyCODONE 5 mg PO Q6HR PRN 11/16/20 [History] oxyCODONE 10 mg PO Q6HR PRN 11/16/20 [History] Past Medical History - Past Health History Medical/Surgical History: Denies Medical/Surgical History HEENT History: Reports: Impaired Vision Other HEENT History: wears glasses Cardiovascular History: Reports: Angina, Arrhythmia, Automatic Implantable Cardioverter Defibrillators, CAD, High Cholesterol, Hypertension, NE, Pacemaker, Stents Respiratory History: Reports: Intubation, Previous Gastrointestinal History: Reports: Cholelithiasis, Hepatitis Genitourinary History: Reports: Chronic Renal Insuffiency, Other (See Below) Other Genitourinary History: questionable kidney failure. Only 1 kidney, gave the other one away. Musculoskeletal History: Reports: Back Pain, Chronic, Fracture, Osteoarthritis Other Musculoskeletal History: Rt. shoulder reconstructed. Neurological History: Reports: CVA Psychiatric History: Reports: Anxiety, Depression, Panic Attack, PTSD Endocrine/Metabolic History: Reports: Diabetes, Type II, Obesity/BMI 30+ Hematologic History: Reports: None Immunologic History: Reports: None Oncologic (Cancer) History: Reports: None Dermatologic History: Reports: Cellulitis Other Dermatologic History: severe rash to the legs, - Infectious Disease History Infectious Disease History: Reports: Hepatitis C - Past Surgical History Cardiovascular Surgical History: Reports: AICD, Pacer, Other (See Below) Other Cardiovascular Surgeries/Procedures: AICD/pacer removed 11/09, using a life vest now GI Surgical History: Reports: Appendectomy, Cholecystectomy Male Surgical History: Reports: Nephrectomy Social & Family History - Family History Family Medical History: Unobtainable Cardiac: Reports: Angina, CAD, Heart Failure, High Cholesterol, Hypertension, NE GI: Reports: Cholelithiasis : Reports: Dialysis Neurological: Reports: CVA Endocrine/Metabolic: Reports: Diabetes, type II, Obesity/MBI 30+ - Tobacco Use Tobacco Use Status *Q: Light Tobacco User Years of Tobacco use: 36 Packs/Tins Daily: 0.5 Used Tobacco, but Quit: Yes Month/Year Tobacco Last Used: Sep Second Hand Smoke Exposure: No - Caffeine Use Caffeine Use: Reports: Coffee - Recreational Drug Use Recreational Drug Use: No - Living Situation & Occupation Living situation: Reports: , with Family Occupation: Retired H&P Review of Systems - Review of Systems: Review Of Systems: See Below General: Denies: Fever, Chills, Weakness HEENT: Denies: Headaches Pulmonary: Denies: Shortness of Breath, Wheezing, Cough, Sputum Cardiovascular: Denies: Chest Pain, Orthopnea, PND Gastrointestinal: Denies: Abdominal Pain, Constipation, Diarrhea Genitourinary: Denies: Dysuria Musculoskeletal: Denies: Neck Pain Skin: Denies: Jaundice Psychiatric: Denies: Confusion Neurological: Denies: Dizziness Hematologic/Lymphatic: Denies: Easy Bleeding Exam - Exam Exam: See Below - Vital Signs Weight: 274 lb 1.6 oz - Exam Quality Assessment: No: Supplemental Oxygen General: Alert, Oriented, Cooperative HEENT: Conjunctiva Clear Neck: Supple Lungs: Clear to Auscultation, Normal Respiratory Effort Cardiovascular: Regular Rate, Regular Rhythm GI/Abdominal Exam: Normal Bowel Sounds, Soft, Non-Tender, No Distention, Other (obese) Extremities: No Pedal Edema Skin: Other (clean dressing over prior AICD site) Neurological: Normal Speech Neuro Extensive - Mental Status: Alert, Oriented x3, Normal Mood/Affect Neuro Extensive - Motor, Sensory, Reflexes: No: Tremor Psychiatric: Alert, Normal Affect, Normal Mood *Q Meaningful Use (ADM) - VTE *Q VTE Anticoagulation Contraindications: Medical/Procedure Contrai Problem List Initiated/Reviewed/Updated: No Orders Last 24hrs: Active Orders 24 hr Category Date Time Status Patient Status [ADT] Routine ADT 11/16/20 17:29 Active Antiembolic Devices [RC] PER UNIT ROUTINE Care 11/16/20 17:32 Active Communication Order [RC] ROUTINE Care 11/16/20 17:29 Active Communication Order [RC] ROUTINE Care 11/16/20 17:29 Active Communication Order [RC] ROUTINE Care 11/16/20 17:29 Active Communication Order [RC] ROUTINE Care 11/16/20 17:29 Active Oxygen Therapy [RC] PRN Care 11/16/20 17:29 Active Up ad Luz Maria [RC] ASDIRECTED Care 11/16/20 17:29 Active VTE/DVT Education [RC] PER UNIT ROUTINE Care 11/16/20 17:29 Active Vital Signs [RC] Q4H Care 11/16/20 17:29 Active Consistent Carbohydrate Diet [DIET] Diet 11/17/20 Breakfast Active Acetaminophen [TylenoL] Med 11/16/20 17:29 Active 650 mg PO Q4H PRN Aspirin Med 11/17/20 09:00 Active 81 mg PO DAILY Carboxymethylcellulose Sodium [Refresh Celluvisc] Med 11/16/20 17:38 Active 1 each EYEBOTH TID PRN Cefepime [Maxipime] 2 gm Med 11/16/20 22:00 Active Sodium Chloride 0.9% [Normal Saline] 50 ml IV Q8HR DULoxetine [Cymbalta] Med 11/17/20 09:00 Active 60 mg PO DAILY Dextrose 50% in Water Med 11/16/20 17:41 Active 50 ml IV Q15M PRN Gabapentin [Neurontin] Med 11/16/20 21:00 Active 300 mg PO TID Glucagon,Human Recombinant [GlucaGen] Med 11/16/20 17:41 Active 1 mg IM Q15M PRN Insulin Lispro [HumaLOG] Med 11/16/20 18:00 Active See Protocol SUBCUT WITHMEALSANDBED Levothyroxine [Synthroid] Med 11/17/20 07:00 Active 100 mcg PO 0700 Metoprolol Succinate [Toprol XL] Med 11/17/20 09:00 Active 50 mg PO DAILY Vancomycin 1.25 gm Med 11/16/20 21:00 Pending Sodium Chloride 0.9% [Normal Saline (AdvBag)] 250 ml IV BID atorvaSTATin [Lipitor] Med 11/17/20 09:00 Active 40 mg PO DAILY oxyCODONE Med 11/16/20 17:38 Active 10 mg PO Q6HR PRN oxyCODONE Med 11/16/20 17:38 Active 5 mg PO Q6HR PRN Anticoagulation Contraindications VTE [AST] Per Unit Oth 11/16/20 17:29 Ordered Routine Antiembolic Hose [OM.PC] Per Unit Routine Oth 11/16/20 17:32 Ordered Resuscitation Status Routine Resus Stat 11/16/20 17:29 Ordered Medication Orders Acetaminophen (Acetaminophen 325 Mg Tab) 650 mg PO Q4H PRN PRN Reason: Pain (Mild 1-3)/fever Artificial Tears (Carboxymethylcellulose Sodium 1% Ophth Gel 0.4 Ml Ud) 1 each EYEBOTH TID PRN PRN Reason: Dry Eyes Aspirin (Aspirin 81 Mg Tab.Chew) 81 mg PO DAILY [facility] Atorvastatin Calcium (Atorvastatin 20 Mg Tab) 40 mg PO DAILY [facility] Dextrose/Water (50% Dextrose In Water 50 Ml Syringe) 50 ml IV Q15M PRN PRN Reason: Hypoglycemia Duloxetine HCl (Duloxetine 30 Mg Cap) 60 mg PO DAILY [facility] Gabapentin (Gabapentin 300 Mg Cap) 300 mg PO TID [facility] Glucagon (Glucagon,Human Recombinant 1 Mg Vial) 1 mg IM Q15M PRN PRN Reason: Hypoglycemia Cefepime HCl 2 gm/ Sodium (Chloride) 50 mls @ 100 mls/hr IV Q8HR [facility] Vancomycin HCl 1.25 gm/ Sodium (Chloride) 250 mls @ 167 mls/hr IV BID [facility] Insulin Human Lispro (Insulin Lispro 100 Units/Ml 3 Ml Vial) 0 unit SUBCUT WITHMEALSANDBED [facility]; Protocol Levothyroxine Sodium (Levothyroxine 100 Mcg Tab) 100 mcg PO 0700 [facility] Metoprolol Succinate (Metoprolol Succinate 50 Mg Tab.Er) 50 mg PO DAILY [facility] Oxycodone HCl (Oxycodone 5 Mg Tab) 5 mg PO Q6HR PRN PRN Reason: Pain (moderate 4-6) Oxycodone HCl (Oxycodone 5 Mg Tab) 10 mg PO Q6HR PRN PRN Reason: Pain (severe 7-10) Assessment/Plan Comment:: #IE of AICD lead - no organism was isolated - planned for 6 weeks IV vanco and cefepime starting 11/10 - ID to follow via telemed visits - wound care and activity restriction per d/c instructions #CAD / HT / hx CVA - c/w discharge meds - notably plavix was dc on discharge - pt has a Life-Vest on #DM2 - MARYBEL PPX - no chemoppx per d/c instructions - compression stockings Full code
[2020-11-16] MEDS: Insulin Lispro 100 Units/ML 3 ML Vial SUBCUT SCH ×2 (18:54→20:58)
[2020-11-16] MEDS: oxyCODONE 5 MG Tab PO PRN (21:13)
[2020-11-16] MEDS: Cefepime 2 GM in Sodium Chloride 0.9% 50 ML IV SCH (21:13)
[2020-11-16] MEDS: Gabapentin 300 MG Cap PO SCH (21:13)
[2020-11-16] MEDS: VANCOmycin 1.5 GM/300 ML 1.5 GM in Premix Bag 1 BAG IV SCH (22:44)
[2020-11-17] MEDS: oxyCODONE 5 MG Tab PO PRN ×5 (03:31→23:29)
[2020-11-17] MEDS: Cefepime 2 GM in Sodium Chloride 0.9% 50 ML IV SCH ×3 (05:44→21:27)
[2020-11-17] MEDS: Levothyroxine 100 MCG Tab PO SCH (05:44)
[2020-11-17] MEDS: Insulin Lispro 100 Units/ML 3 ML Vial SUBCUT SCH ×4 (08:42→21:27)
[2020-11-17] MEDS: atorvaSTATin 20 MG Tab PO SCH (08:49)
[2020-11-17] MEDS: Metoprolol Succinate 50 MG Tab.ER PO SCH (08:49)
[2020-11-17] MEDS: Gabapentin 300 MG Cap PO SCH ×3 (08:50→21:28)
[2020-11-17] MEDS: Aspirin 81 MG Tab.Chew PO SCH (08:50)
[2020-11-17] MEDS: DULoxetine 30 MG Cap PO SCH (08:50)
[2020-11-17] MEDS: VANCOmycin 1.5 GM/300 ML 1.5 GM in Premix Bag 1 BAG IV SCH ×2 (11:37→22:08)
[2020-11-18] MEDS: Levothyroxine 100 MCG Tab PO SCH (05:08)
[2020-11-18] MEDS: oxyCODONE 5 MG Tab PO PRN ×4 (05:08→23:15)
[2020-11-18] MEDS: Cefepime 2 GM in Sodium Chloride 0.9% 50 ML IV SCH ×3 (05:09→22:01)
[2020-11-18] MEDS: Insulin Lispro 100 Units/ML 3 ML Vial SUBCUT SCH ×4 (08:32→21:48)
[2020-11-18] MEDS: DULoxetine 30 MG Cap PO SCH (09:21)
[2020-11-18] MEDS: Gabapentin 300 MG Cap PO SCH ×3 (09:21→21:46)
[2020-11-18] MEDS: Metoprolol Succinate 50 MG Tab.ER PO SCH (09:21)
[2020-11-18] MEDS: Aspirin 81 MG Tab.Chew PO SCH (09:23)
[2020-11-18] MEDS: Acetaminophen 325 MG Tab PO PRN (09:23)
[2020-11-18] MEDS: atorvaSTATin 20 MG Tab PO SCH (09:25)
[2020-11-18] MEDS: VANCOmycin 1.5 GM/300 ML 1.5 GM in Premix Bag 1 BAG IV SCH (11:48)
[2020-11-19] MEDS: Cefepime 2 GM in Sodium Chloride 0.9% 50 ML IV SCH ×3 (05:41→22:10)
[2020-11-19] MEDS: Levothyroxine 100 MCG Tab PO SCH (05:45)
[2020-11-19] MEDS: Insulin Lispro 100 Units/ML 3 ML Vial SUBCUT SCH ×4 (08:40→20:42)
[2020-11-19] MEDS: Aspirin 81 MG Tab.Chew PO SCH (08:41)
[2020-11-19] MEDS: DULoxetine 30 MG Cap PO SCH (08:42)
[2020-11-19] MEDS: Gabapentin 300 MG Cap PO SCH ×3 (08:43→20:39)
[2020-11-19] MEDS: atorvaSTATin 20 MG Tab PO SCH (08:43)
[2020-11-19] MEDS: Metoprolol Succinate 50 MG Tab.ER PO SCH (08:44)
[2020-11-19] MEDS: oxyCODONE 5 MG Tab PO PRN ×3 (08:44→20:39)
[2020-11-19] MEDS: Acetaminophen 325 MG Tab PO PRN ×3 (08:45→20:40)
--- NOTE | 2020-11-19 16:37 | PCM.PN ---
- General Info Date of Service: 11/19/20 Functional Status: Reports: Pain Controlled - Review of Systems General: Denies: Fever Pulmonary: Denies: Shortness of Breath Cardiovascular: Denies: Chest Pain (only minimal drainge ( few CC ) out of the drainge to left chest wall) Gastrointestinal: Denies: Diarrhea Neurological: Denies: Confusion Psychiatric: Denies: Confusion - Patient Data Vitals - Most Recent: Last Vital Signs Temp 97.0 F 11/19/20 08:43 Pulse 55 L 11/19/20 08:44 Resp 18 11/19/20 08:43 BP 123/67 11/19/20 08:44 Pulse Ox 99 11/19/20 08:43 Weight - Most Recent: 274 lb 1.6 oz I&O - Last 24 Hours: Intake & Output 11/19/20 11/19/20 11/19/20 06:59 14:59 22:59 Intake Total 812 720 Balance 812 720 Lab Results Last 24 Hours: Laboratory Results - last 24 hr 11/18/20 11/18/20 11/19/20 Range/Units 17:08 21:02 08:30 POC Glucose 102 186 H 137 H (70-105) mg/dl 11/19/20 Range/Units 11:56 POC Glucose 109 H (70-105) mg/dl Med Orders - Current: Current Medications Acetaminophen (Acetaminophen 325 Mg Tab) 650 mg PO Q4H PRN PRN Reason: Pain (Mild 1-3)/fever Last Admin: 11/19/20 14:45 Dose: 650 mg Documented by: Artificial Tears (Carboxymethylcellulose Sodium 1% Ophth Gel 0.4 Ml Ud) 1 each EYEBOTH TID PRN PRN Reason: Dry Eyes Aspirin (Aspirin 81 Mg Tab.Chew) 81 mg PO DAILY [facility] Last Admin: 11/19/20 08:41 Dose: 81 mg Documented by: Atorvastatin Calcium (Atorvastatin 20 Mg Tab) 40 mg PO DAILY [facility] Last Admin: 11/19/20 08:43 Dose: 40 mg Documented by: Dextrose/Water (50% Dextrose In Water 50 Ml Syringe) 50 ml IV Q15M PRN PRN Reason: Hypoglycemia Duloxetine HCl (Duloxetine 30 Mg Cap) 60 mg PO DAILY [facility] Last Admin: 11/19/20 08:42 Dose: 60 mg Documented by: Gabapentin (Gabapentin 300 Mg Cap) 300 mg PO TID [facility] Last Admin: 11/19/20 14:36 Dose: 300 mg Documented by: Glucagon (Glucagon,Human Recombinant 1 Mg Vial) 1 mg IM Q15M PRN PRN Reason: Hypoglycemia Cefepime HCl 2 gm/ Sodium (Chloride) 50 mls @ 100 mls/hr IV Q8HR [facility] Last Admin: 11/19/20 14:35 Dose: 100 mls/hr Documented by: Vancomycin HCl 1 gm/ Sodium (Chloride) 250 mls @ 166.667 mls/hr IV Q12H [facility] Last Admin: 11/19/20 13:00 Dose: 166.667 mls/hr Documented by: Insulin Human Lispro (Insulin Lispro 100 Units/Ml 3 Ml Vial) 0 unit SUBCUT WITHMEALSANDBED [facility]; Protocol Last Admin: 11/19/20 12:23 Dose: Not Given Documented by: Levothyroxine Sodium (Levothyroxine 100 Mcg Tab) 100 mcg PO 0600 [facility] Last Admin: 11/19/20 05:45 Dose: 100 mcg Documented by: Metoprolol Succinate (Metoprolol Succinate 50 Mg Tab.Er) 50 mg PO DAILY [facility] Last Admin: 11/19/20 08:44 Dose: 50 mg Documented by: Oxycodone HCl (Oxycodone 5 Mg Tab) 5 mg PO Q6HR PRN PRN Reason: Pain (moderate 4-6) Last Admin: 11/19/20 08:44 Dose: 5 mg Documented by: Oxycodone HCl (Oxycodone 5 Mg Tab) 10 mg PO Q6HR PRN PRN Reason: Pain (severe 7-10) Last Admin: 11/19/20 14:36 Dose: 10 mg Documented by: Vancomycin HCl (Pharmacy To Dose - Vancomycin) 1 dose .XX ASDIRECTED [facility] Discontinued Medications Vancomycin HCl 1.25 gm/ Sodium (Chloride) 250 mls @ 167 mls/hr IV BID [facility] Last Admin: 11/16/20 22:35 Dose: Not Given Documented by: Vancomycin HCl 1.5 gm/ Premix 300 mls @ 200 mls/hr IV Q12H [facility] Last Admin: 11/18/20 11:48 Dose: Not Given Documented by: - Exam Quality Assessment: No: Supplemental Oxygen General: Alert, Oriented HEENT: EOMI Neck: Supple Lungs: Clear to Auscultation Cardiovascular: Regular Rate, Regular Rhythm Extremities: Normal Inspection Skin: Other (only minimal drainge ( few CC ) out of the drainge to left chest wall) Wound/Incisions: Other (only minimal drainge ( few CC ) out of the drainge to left chest wall) Neurological: No New Focal Deficit Psy/Mental Status: Alert, Normal Affect - Patient Data Lab Results Last 24 hrs: Laboratory Results - last 24 hr 11/18/20 11/18/20 11/19/20 Range/Units 17:08 21:02 08:30 POC Glucose 102 186 H 137 H (70-105) mg/dl 11/19/20 Range/Units 11:56 POC Glucose 109 H (70-105) mg/dl Sepsis Event Note - Evaluation Sepsis Screening Result: No Definite Risk - Focused Exam Vital Signs: Vital Signs Temp Pulse Pulse Resp BP BP Pulse Ox 11/19/20 08:44 55 L 123/67 11/19/20 08:43 97.0 F 55 L 18 123/67 99 - Problem List & Annotations (1) Infected pacemaker SNOMED Code(s): 599651000 Code(s): T82.7XXA - INFECT/INFLM REACT D/T OTH CARDI/VASC DEV/IMPLNT/GRFT, INIT Status: Acute Current Visit: No Qualifiers: Encounter type: initial encounter Qualified Code(s): T82.7XXA - Infection and inflammatory reaction due to other cardiac and vascular devices, implants and grafts, initial encounter - Problem List Review Problem List Initiated/Reviewed/Updated: Yes - My Orders Last 24 Hours: My Active Orders 11/19/20 16:30 Communication Order [RC] PER UNIT ROUTINE - Plan Plan:: #IE of AICD lead - no organism was isolated - planned for 6 weeks IV vanco and cefepime starting 11/10 - ID to follow via telemed visits - wound care and activity restriction per d/c instructions to remove the drainge today since very limitted output as per discharge instruction. Thsi was reconfirmed by Dr. Miller ( [facility]) #CAD / HT / hx CVA - c/w discharge meds - notably plavix was dc on discharge - pt has a Life-Vest on #DM2 - MARYBEL PPX - no chemoppx per d/c instructions - compression stockings Full code
[2020-11-19] MEDS: Sodium Chloride 0.9% 10 ML Syringe FLUSH PRN (23:59)
[2020-11-20] MEDS: oxyCODONE 5 MG Tab PO PRN ×4 (02:36→21:07)
[2020-11-20] MEDS: Acetaminophen 325 MG Tab PO PRN ×3 (02:36→21:07)
[2020-11-20] MEDS: Levothyroxine 100 MCG Tab PO SCH (05:44)
[2020-11-20] MEDS: Cefepime 2 GM in Sodium Chloride 0.9% 50 ML IV SCH ×3 (05:45→21:30)
[2020-11-20] MEDS: Sodium Chloride 0.9% 10 ML Syringe FLUSH PRN ×3 (05:45→23:45)
[2020-11-20] MEDS: Insulin Lispro 100 Units/ML 3 ML Vial SUBCUT SCH ×4 (08:46→21:29)
[2020-11-20] MEDS: Metoprolol Succinate 50 MG Tab.ER PO SCH (10:07)
[2020-11-20] MEDS: DULoxetine 30 MG Cap PO SCH (10:07)
[2020-11-20] MEDS: Aspirin 81 MG Tab.Chew PO SCH (10:07)
[2020-11-20] MEDS: Gabapentin 300 MG Cap PO SCH ×3 (10:07→21:30)
[2020-11-20] MEDS: atorvaSTATin 20 MG Tab PO SCH (10:07)
[2020-11-21] MEDS: Acetaminophen 325 MG Tab PO PRN (04:05)
[2020-11-21] MEDS: oxyCODONE 5 MG Tab PO PRN ×4 (04:06→22:58)
[2020-11-21] MEDS: Levothyroxine 100 MCG Tab PO SCH (05:46)
[2020-11-21] MEDS: Cefepime 2 GM in Sodium Chloride 0.9% 50 ML IV SCH ×3 (05:47→22:10)
[2020-11-21] MEDS: Sodium Chloride 0.9% 10 ML Syringe FLUSH PRN ×3 (05:47→23:59)
[2020-11-21 07:05] LABS: ANION GAP 13.3 mEq/L (7-13); CHLORIDE,CL 106 mmol/L (98-107); SODIUM,NA 141 mmol/L (136-145)
[2020-11-21] MEDS: Insulin Lispro 100 Units/ML 3 ML Vial SUBCUT SCH ×4 (08:01→22:08)
[2020-11-21] MEDS: atorvaSTATin 20 MG Tab PO SCH (08:49)
[2020-11-21] MEDS: Aspirin 81 MG Tab.Chew PO SCH (08:49)
[2020-11-21] MEDS: Gabapentin 300 MG Cap PO SCH ×3 (08:49→22:09)
[2020-11-21] MEDS: DULoxetine 30 MG Cap PO SCH (08:49)
[2020-11-21] MEDS: Metoprolol Succinate 50 MG Tab.ER PO SCH (08:51)
[2020-11-22] MEDS: Levothyroxine 100 MCG Tab PO SCH (05:40)
[2020-11-22] MEDS: Cefepime 2 GM in Sodium Chloride 0.9% 50 ML IV SCH ×3 (05:41→21:58)
[2020-11-22] MEDS: Sodium Chloride 0.9% 10 ML Syringe FLUSH PRN ×2 (05:42→06:21)
[2020-11-22] MEDS: oxyCODONE 5 MG Tab PO PRN ×3 (05:51→18:19)
[2020-11-22] MEDS: Insulin Lispro 100 Units/ML 3 ML Vial SUBCUT SCH ×4 (08:06→20:41)
[2020-11-22] MEDS: atorvaSTATin 20 MG Tab PO SCH (08:46)
[2020-11-22] MEDS: Gabapentin 300 MG Cap PO SCH ×3 (08:46→20:41)
[2020-11-22] MEDS: Acetaminophen 325 MG Tab PO PRN (08:46)
[2020-11-22] MEDS: Metoprolol Succinate 50 MG Tab.ER PO SCH (08:52)
[2020-11-22] MEDS: DULoxetine 30 MG Cap PO SCH (08:55)
[2020-11-22] MEDS: Aspirin 81 MG Tab.Chew PO SCH (08:55)
[2020-11-22] MEDS ORDERED: Bacitracin Oint 28.35 GM Tube TOP SCH (14:00)
--- NOTE | 2020-11-22 14:04 | CR ---
EXAMINATION: Chest 2V SEX: Male AGE: 65 years CLINICAL HISTORY: 65-year-old male reported on [address] chest to have "multilobar pneumonia". Infection. Interpretation: 1. No residual plain film evidence of "pneumonia". 2. Cardiac pacemaker and external milieu counselor leads no longer present. (Long-arm PIC catheter on the right) 3. Normal cardiac silhouette. No pulmonary vascular congestion, cephalization of flow, alveolar edema or dependent pleural fluid accumulation (no effusions). 4. No new lung mass, hilar lymphadenopathy or focal lobar consolidation i.e. no alveolar infiltrates or peripheral "groundglass" interstitial lung density. CONCLUSION: No residual cardiopulmonary abnormality.
[2020-11-22] MEDS: Bacitracin Oint 28.35 GM Tube TOP PRN (17:48)
[2020-11-23] MEDS: oxyCODONE 5 MG Tab PO PRN ×5 (00:18→18:32)
[2020-11-23] MEDS: Cefepime 2 GM in Sodium Chloride 0.9% 50 ML IV SCH ×3 (05:44→21:43)
[2020-11-23] MEDS: Levothyroxine 100 MCG Tab PO SCH (06:33)
[2020-11-23] MEDS: Insulin Lispro 100 Units/ML 3 ML Vial SUBCUT SCH ×4 (08:12→21:40)
[2020-11-23] MEDS: atorvaSTATin 20 MG Tab PO SCH (09:46)
[2020-11-23] MEDS: DULoxetine 30 MG Cap PO SCH (09:46)
[2020-11-23] MEDS: Aspirin 81 MG Tab.Chew PO SCH (09:47)
[2020-11-23] MEDS: Gabapentin 300 MG Cap PO SCH ×3 (09:47→21:42)
[2020-11-23] MEDS: Metoprolol Succinate 50 MG Tab.ER PO SCH (09:47)
[2020-11-23] MEDS: Acetaminophen 325 MG Tab PO PRN (09:52)
[2020-11-23] MEDS: Sodium Chloride 0.9% 10 ML Syringe FLUSH PRN ×2 (12:37→21:42)
[2020-11-24] MEDS: oxyCODONE 5 MG Tab PO PRN ×4 (00:23→19:44)
[2020-11-24] MEDS: Sodium Chloride 0.9% 10 ML Syringe FLUSH PRN ×2 (00:26→14:25)
[2020-11-24] MEDS: Levothyroxine 100 MCG Tab PO SCH (05:57)
[2020-11-24] MEDS: Cefepime 2 GM in Sodium Chloride 0.9% 50 ML IV SCH ×3 (06:03→21:33)
[2020-11-24] MEDS: Insulin Lispro 100 Units/ML 3 ML Vial SUBCUT SCH ×4 (09:00→22:05)
[2020-11-24] MEDS: atorvaSTATin 20 MG Tab PO SCH (09:32)
[2020-11-24] MEDS: Metoprolol Succinate 50 MG Tab.ER PO SCH (09:32)
[2020-11-24] MEDS: DULoxetine 30 MG Cap PO SCH (09:32)
[2020-11-24] MEDS: Gabapentin 300 MG Cap PO SCH ×3 (09:32→21:33)
[2020-11-24] MEDS: Aspirin 81 MG Tab.Chew PO SCH (09:33)
[2020-11-24] MEDS: Carboxymethylcellulose Sodium 1% Ophth Gel 0.4 ML UD EYEBOTH PRN (14:52)
[2020-11-24] MEDS: Bacitracin Oint 28.35 GM Tube TOP PRN (14:52)
[2020-11-25] MEDS: oxyCODONE 5 MG Tab PO PRN ×3 (03:22→17:50)
[2020-11-25] MEDS: Cefepime 2 GM in Sodium Chloride 0.9% 50 ML IV SCH ×3 (06:17→21:53)
[2020-11-25] MEDS: Levothyroxine 100 MCG Tab PO SCH (06:18)
[2020-11-25] MEDS: Insulin Lispro 100 Units/ML 3 ML Vial SUBCUT SCH ×4 (08:15→21:53)
[2020-11-25] MEDS: atorvaSTATin 20 MG Tab PO SCH (08:48)
[2020-11-25] MEDS: Gabapentin 300 MG Cap PO SCH ×3 (08:48→21:53)
[2020-11-25] MEDS: Metoprolol Succinate 50 MG Tab.ER PO SCH (08:48)
[2020-11-25] MEDS: DULoxetine 30 MG Cap PO SCH (08:49)
[2020-11-25] MEDS: Aspirin 81 MG Tab.Chew PO SCH (08:49)
[2020-11-25] MEDS: Sodium Chloride 0.9% 10 ML Syringe FLUSH PRN (14:56)
[2020-11-26] MEDS: oxyCODONE 5 MG Tab PO PRN ×4 (01:10→21:27)
[2020-11-26] MEDS: Cefepime 2 GM in Sodium Chloride 0.9% 50 ML IV SCH ×3 (06:16→21:28)
[2020-11-26] MEDS: Levothyroxine 100 MCG Tab PO SCH (06:20)
[2020-11-26] MEDS: Insulin Lispro 100 Units/ML 3 ML Vial SUBCUT SCH ×4 (07:42→20:45)
[2020-11-26] MEDS: Metoprolol Succinate 50 MG Tab.ER PO SCH (08:29)
[2020-11-26] MEDS: atorvaSTATin 20 MG Tab PO SCH (08:29)
[2020-11-26] MEDS: Gabapentin 300 MG Cap PO SCH ×3 (08:29→21:27)
[2020-11-26] MEDS: Aspirin 81 MG Tab.Chew PO SCH (08:30)
[2020-11-26] MEDS: DULoxetine 30 MG Cap PO SCH (09:04)
[2020-11-26] MEDS ORDERED: Carboxymethylcellulose Sodium 1% Ophth Gel 0.4 ML UD EYEBOTH PRN (09:31)
--- NOTE | 2020-11-26 09:40 | PCM.PN ---
- General Info Date of Service: 11/26/20 Functional Status: Reports: Pain Controlled - Review of Systems General: Denies: Fever HEENT: Reports: Other (dry eyes) Pulmonary: Denies: Shortness of Breath Cardiovascular: Denies: Chest Pain Skin: Reports: Other (dry skin B hands) Neurological: Denies: Confusion Psychiatric: Denies: Confusion - Patient Data Vitals - Most Recent: Last Vital Signs Temp 97.6 F 11/26/20 07:41 Pulse 54 L 11/26/20 08:29 Resp 18 11/26/20 07:41 BP 111/53 L 11/26/20 08:29 Pulse Ox 100 11/26/20 07:41 Weight - Most Recent: 272 lb 3.2 oz I&O - Last 24 Hours: Intake & Output 11/25/20 11/26/20 11/26/20 22:59 06:59 14:59 Intake Total 300 350 Balance 300 350 Lab Results Last 24 Hours: Laboratory Results - last 24 hr 11/25/20 11/25/20 11/25/20 Range/Units 12:07 17:00 21:18 POC Glucose 100 118 H 122 H (70-105) mg/dl Total Bilirubin (0.2-1.0) mg/dL Direct Bilirubin (0.0-0.2) mg/dL Indirect Bilirubin AST (15-37) U/L ALT (16-63) U/L Alkaline Phosphatase (46-116) U/L Total Protein (6.4-8.2) g/dL Albumin (3.4-5.0) g/dL Globulin Albumin/Globulin Ratio 11/26/20 11/26/20 Range/Units 05:45 07:24 POC Glucose 94 (70-105) mg/dl Total Bilirubin 1.0 (0.2-1.0) mg/dL Direct Bilirubin 0.3 H (0.0-0.2) mg/dL Indirect Bilirubin 0.7 AST 69 H (15-37) U/L ALT 114 H (16-63) U/L Alkaline Phosphatase 126 H (46-116) U/L Total Protein 6.4 (6.4-8.2) g/dL Albumin 3.0 L (3.4-5.0) g/dL Globulin 3.4 Albumin/Globulin Ratio 0.88 Med Orders - Current: Current Medications Acetaminophen (Acetaminophen 325 Mg Tab) 650 mg PO Q4H PRN PRN Reason: Pain (Mild 1-3)/fever Last Admin: 11/23/20 09:52 Dose: 650 mg Documented by: Artificial Tears (Carboxymethylcellulose Sodium 1% Ophth Gel 0.4 Ml Ud) 1 each EYEBOTH TID PRN PRN Reason: Dry Eyes Last Admin: 11/24/20 14:52 Dose: 1 each Documented by: Artificial Tears (Carboxymethylcellulose Sodium 1% Ophth Gel 0.4 Ml Ud) 0 each EYEBOTH QID PRN PRN Reason: Dry Eyes Aspirin (Aspirin 81 Mg Tab.Chew) 81 mg PO DAILY [facility] Last Admin: 11/26/20 08:30 Dose: 81 mg Documented by: Atorvastatin Calcium (Atorvastatin 20 Mg Tab) 40 mg PO DAILY [facility] Last Admin: 11/26/20 08:29 Dose: 40 mg Documented by: Bacitracin (Bacitracin Oint 28.35 Gm Tube) 0 gm TOP BID PRN PRN Reason: Wound Care Last Admin: 11/24/20 14:52 Dose: 1 applic Documented by: Betamethasone Dipropionate (Betamethasone Dipropionate 0.05% Crm 15 Gm Tube) 0 gm TOP TID [facility] Dextrose/Water (50% Dextrose In Water 50 Ml Syringe) 50 ml IV Q15M PRN PRN Reason: Hypoglycemia Duloxetine HCl (Duloxetine 30 Mg Cap) 60 mg PO DAILY [facility] Last Admin: 11/26/20 09:04 Dose: 60 mg Documented by: Gabapentin (Gabapentin 300 Mg Cap) 300 mg PO TID [facility] Last Admin: 11/26/20 08:29 Dose: 300 mg Documented by: Glucagon (Glucagon,Human Recombinant 1 Mg Vial) 1 mg IM Q15M PRN PRN Reason: Hypoglycemia Cefepime HCl 2 gm/ Sodium (Chloride) 50 mls @ 100 mls/hr IV Q8HR [facility] Last Admin: 11/26/20 06:16 Dose: 100 mls/hr Documented by: Vancomycin HCl 1 gm/ Sodium (Chloride) 250 mls @ 166.667 mls/hr IV Q12H [facility] Last Admin: 11/25/20 23:34 Dose: 166.667 mls/hr Documented by: Insulin Human Lispro (Insulin Lispro 100 Units/Ml 3 Ml Vial) 0 unit SUBCUT WITHMEALSANDBED [facility]; Protocol Last Admin: 11/26/20 07:42 Dose: Not Given Documented by: Levothyroxine Sodium (Levothyroxine 100 Mcg Tab) 100 mcg PO 0600 [facility] Last Admin: 11/26/20 06:20 Dose: 100 mcg Documented by: Metoprolol Succinate (Metoprolol Succinate 50 Mg Tab.Er) 50 mg PO DAILY [facility] Last Admin: 11/26/20 08:29 Dose: 50 mg Documented by: Oxycodone HCl (Oxycodone 5 Mg Tab) 5 mg PO Q6HR PRN PRN Reason: Pain (moderate 4-6) Last Admin: 11/19/20 08:44 Dose: 5 mg Documented by: Oxycodone HCl (Oxycodone 5 Mg Tab) 10 mg PO Q6HR PRN PRN Reason: Pain (severe 7-10) Last Admin: 11/26/20 08:38 Dose: 10 mg Documented by: Sodium Chloride (Sodium Chloride 0.9% 10 Ml Syringe) 10 ml FLUSH ASDIRECTED PRN PRN Reason: IV Use Last Admin: 11/25/20 14:56 Dose: 10 ml Documented by: Vancomycin HCl (Pharmacy To Dose - Vancomycin) 1 dose .XX ASDIRECTED [facility] Discontinued Medications Bacitracin (Bacitracin Oint 28.35 Gm Tube) 0 gm TOP TID [facility] Vancomycin HCl 1.25 gm/ Sodium (Chloride) 250 mls @ 167 mls/hr IV BID [facility] Last Admin: 11/16/20 22:35 Dose: Not Given Documented by: Vancomycin HCl 1.5 gm/ Premix 300 mls @ 200 mls/hr IV Q12H [facility] Last Admin: 11/18/20 11:48 Dose: Not Given Documented by: - Exam Quality Assessment: No: Supplemental Oxygen General: Alert, Oriented Lungs: Other (lifevest inplace) Cardiovascular: Other (the skin to area of pacemaker drainage is healing) (Male) Exam: Deferred Extremities: Normal Range of Motion Skin: Other (Eczematous changes B hands ) Wound/Incisions: Other Neurological: No New Focal Deficit Psy/Mental Status: Alert, Normal Affect - Patient Data Lab Results Last 24 hrs: Laboratory Results - last 24 hr 11/25/20 11/25/20 11/25/20 Range/Units 12:07 17:00 21:18 POC Glucose 100 118 H 122 H (70-105) mg/dl Total Bilirubin (0.2-1.0) mg/dL Direct Bilirubin (0.0-0.2) mg/dL Indirect Bilirubin AST (15-37) U/L ALT (16-63) U/L Alkaline Phosphatase (46-116) U/L Total Protein (6.4-8.2) g/dL Albumin (3.4-5.0) g/dL Globulin Albumin/Globulin Ratio 11/26/20 11/26/20 Range/Units 05:45 07:24 POC Glucose 94 (70-105) mg/dl Total Bilirubin 1.0 (0.2-1.0) mg/dL Direct Bilirubin 0.3 H (0.0-0.2) mg/dL Indirect Bilirubin 0.7 AST 69 H (15-37) U/L ALT 114 H (16-63) U/L Alkaline Phosphatase 126 H (46-116) U/L Total Protein 6.4 (6.4-8.2) g/dL Albumin 3.0 L (3.4-5.0) g/dL Globulin 3.4 Albumin/Globulin Ratio 0.88 Result Diagrams: 11/21/20 06:33 11/21/20 06:33 Sepsis Event Note - Evaluation Sepsis Screening Result: No Definite Risk - Focused Exam Vital Signs: Vital Signs Temp Pulse Pulse Resp BP BP Pulse Ox 11/26/20 08:29 54 L 111/53 L 11/26/20 07:41 97.6 F 54 L 18 111/53 L 100 - Problem List & Annotations (1) Infected pacemaker SNOMED Code(s): 316085676 Code(s): T82.7XXA - INFECT/INFLM REACT D/T OTH CARDI/VASC DEV/IMPLNT/GRFT, INIT Status: Acute Current Visit: No Qualifiers: Encounter type: initial encounter Qualified Code(s): T82.7XXA - Infection and inflammatory reaction due to other cardiac and vascular devices, implants and grafts, initial encounter - Problem List Review Problem List Initiated/Reviewed/Updated: Yes - My Orders Last 24 Hours: My Active Orders 11/26/20 09:31 Carboxymethylcellulose Sodium [Refresh Celluvisc] See Dose Instructions EYEBOTH QID PRN 11/26/20 14:00 Betamethasone Dipropionate [Diprosone 0.05% Crm] See Dose Instructions TOP TID - Plan Plan:: #IE of AICD lead - no organism was isolated - planned for 6 weeks IV vanco and cefepime starting 11/10 - ID to follow via telemed visits - wound care and activity restriction per d/c instructions # re Vanco level and Cr is scheduled in AM # Abn LFTs : for repeat in AM. Pt stats that his Lipitor was started during his admission. #CAD / HT / hx CVA - c/w discharge meds - notably plavix was dc on discharge - pt has a Life-Vest on #DM2 - MARYBEL PPX - no chemoppx per d/c instructions - compression stockings Full code
[2020-11-26] MEDS: Sodium Chloride 0.9% 10 ML Syringe FLUSH PRN ×2 (13:45→21:28)
[2020-11-26] MEDS: Betamethasone Dipropionate 0.05% Crm 15 GM Tube TOP SCH ×2 (13:47→21:31)
[2020-11-27] MEDS: oxyCODONE 5 MG Tab PO PRN ×4 (03:52→21:30)
[2020-11-27] MEDS: Levothyroxine 100 MCG Tab PO SCH (06:00)
[2020-11-27] MEDS: Cefepime 2 GM in Sodium Chloride 0.9% 50 ML IV SCH ×3 (06:01→21:25)
[2020-11-27] MEDS: Insulin Lispro 100 Units/ML 3 ML Vial SUBCUT SCH ×2 (08:39→12:23)
[2020-11-27] MEDS: Aspirin 81 MG Tab.Chew PO SCH (09:36)
[2020-11-27] MEDS: DULoxetine 30 MG Cap PO SCH (09:36)
[2020-11-27] MEDS: Gabapentin 300 MG Cap PO SCH ×3 (09:36→21:25)
[2020-11-27] MEDS: Metoprolol Succinate 50 MG Tab.ER PO SCH (09:37)
[2020-11-27] MEDS: atorvaSTATin 20 MG Tab PO SCH (09:37)
[2020-11-27] MEDS: Betamethasone Dipropionate 0.05% Crm 15 GM Tube TOP SCH ×3 (09:38→21:24)
[2020-11-27] MEDS: Sodium Chloride 0.9% 10 ML Syringe FLUSH PRN ×2 (12:20→14:11)
[2020-11-27] MEDS: Acetaminophen 325 MG Tab PO PRN (19:00)
[2020-11-27] MEDS: Carboxymethylcellulose Sodium 1% Ophth Gel 0.4 ML UD EYEBOTH PRN (23:17)
[2020-11-28] MEDS: oxyCODONE 5 MG Tab PO PRN ×4 (04:13→23:47)
[2020-11-28] MEDS: Cefepime 2 GM in Sodium Chloride 0.9% 50 ML IV SCH ×3 (05:17→22:09)
[2020-11-28] MEDS: Levothyroxine 100 MCG Tab PO SCH (06:30)
[2020-11-28] MEDS: Gabapentin 300 MG Cap PO SCH ×3 (08:17→20:38)
[2020-11-28] MEDS: DULoxetine 30 MG Cap PO SCH (08:17)
[2020-11-28] MEDS: Aspirin 81 MG Tab.Chew PO SCH (08:17)
[2020-11-28] MEDS: Metoprolol Succinate 50 MG Tab.ER PO SCH (08:17)
[2020-11-28] MEDS: atorvaSTATin 20 MG Tab PO SCH (08:17)
[2020-11-28] MEDS: Betamethasone Dipropionate 0.05% Crm 15 GM Tube TOP SCH ×3 (08:19→22:12)
[2020-11-28] MEDS: Sodium Chloride 0.9% 10 ML Syringe FLUSH PRN (12:24)
[2020-11-28] MEDS: Acetaminophen 325 MG Tab PO PRN (22:25)
[2020-11-29] MEDS: Cefepime 2 GM in Sodium Chloride 0.9% 50 ML IV SCH ×3 (05:35→21:50)
[2020-11-29] MEDS: Levothyroxine 100 MCG Tab PO SCH (05:40)
[2020-11-29] MEDS: oxyCODONE 5 MG Tab PO PRN ×3 (05:41→18:28)
[2020-11-29 06:51] LABS: ANION GAP 15.2 mEq/L (7-13); CHLORIDE,CL 106 mmol/L (98-107); SODIUM,NA 142 mmol/L (136-145)
--- NOTE | 2020-11-29 08:20 | PCM.SN.2 ---
- Free Text/Narrative Note: abn LFTs. Old labs review . Has h/o abn LFTs before. Hold Lipitor and recheck LFT next week
[2020-11-29] MEDS: DULoxetine 30 MG Cap PO SCH (09:33)
[2020-11-29] MEDS: Metoprolol Succinate 50 MG Tab.ER PO SCH (09:33)
[2020-11-29] MEDS: Gabapentin 300 MG Cap PO SCH ×3 (09:33→21:15)
[2020-11-29] MEDS: Aspirin 81 MG Tab.Chew PO SCH (09:33)
[2020-11-29] MEDS: Betamethasone Dipropionate 0.05% Crm 15 GM Tube TOP SCH ×3 (09:34→21:15)
[2020-11-29] MEDS: Sodium Chloride 0.9% 10 ML Syringe FLUSH PRN ×3 (12:26→23:57)
[2020-11-30] MEDS: oxyCODONE 5 MG Tab PO PRN ×4 (01:42→21:49)
[2020-11-30] MEDS: Sodium Chloride 0.9% 10 ML Syringe FLUSH PRN ×3 (05:43→23:56)
[2020-11-30] MEDS: Levothyroxine 100 MCG Tab PO SCH (05:43)
[2020-11-30] MEDS: Cefepime 2 GM in Sodium Chloride 0.9% 50 ML IV SCH ×3 (05:44→21:52)
[2020-11-30] MEDS: Aspirin 81 MG Tab.Chew PO SCH (09:39)
[2020-11-30] MEDS: Gabapentin 300 MG Cap PO SCH ×3 (09:48→21:49)
[2020-11-30] MEDS: Metoprolol Succinate 50 MG Tab.ER PO SCH (09:48)
[2020-11-30] MEDS: Betamethasone Dipropionate 0.05% Crm 15 GM Tube TOP SCH ×3 (09:53→21:51)
[2020-11-30] MEDS: DULoxetine 30 MG Cap PO SCH (09:59)
[2020-12-01] MEDS: oxyCODONE 5 MG Tab PO PRN ×4 (04:26→22:56)
[2020-12-01] MEDS: Sodium Chloride 0.9% 10 ML Syringe FLUSH PRN ×3 (05:40→23:43)
[2020-12-01] MEDS: Levothyroxine 100 MCG Tab PO SCH (05:40)
[2020-12-01] MEDS: Cefepime 2 GM in Sodium Chloride 0.9% 50 ML IV SCH ×3 (05:41→21:44)
[2020-12-01] MEDS: Aspirin 81 MG Tab.Chew PO SCH (08:16)
[2020-12-01] MEDS: Metoprolol Succinate 50 MG Tab.ER PO SCH (08:16)
[2020-12-01] MEDS: Gabapentin 300 MG Cap PO SCH ×3 (08:16→21:40)
[2020-12-01] MEDS: DULoxetine 30 MG Cap PO SCH (08:16)
[2020-12-01] MEDS: Acetaminophen 325 MG Tab PO PRN (08:18)
[2020-12-01] MEDS: Betamethasone Dipropionate 0.05% Crm 15 GM Tube TOP SCH ×3 (08:22→21:40)
[2020-12-01] MEDS: Bacitracin Oint 28.35 GM Tube TOP PRN (14:36)
[2020-12-02] MEDS: Sodium Chloride 0.9% 10 ML Syringe FLUSH PRN ×4 (05:33→23:44)
[2020-12-02] MEDS: Levothyroxine 100 MCG Tab PO SCH (05:33)
[2020-12-02] MEDS: Cefepime 2 GM in Sodium Chloride 0.9% 50 ML IV SCH ×3 (05:34→22:42)
[2020-12-02] MEDS: oxyCODONE 5 MG Tab PO PRN ×4 (05:37→23:53)
[2020-12-02] MEDS: Aspirin 81 MG Tab.Chew PO SCH (09:57)
[2020-12-02] MEDS: Gabapentin 300 MG Cap PO SCH ×3 (09:57→22:45)
[2020-12-02] MEDS: DULoxetine 30 MG Cap PO SCH (09:57)
[2020-12-02] MEDS: Metoprolol Succinate 50 MG Tab.ER PO SCH (09:58)
[2020-12-02] MEDS: Acetaminophen 325 MG Tab PO PRN (09:58)
[2020-12-02] MEDS: Betamethasone Dipropionate 0.05% Crm 15 GM Tube TOP SCH ×3 (09:59→22:53)
[2020-12-02] MEDS: Bacitracin Oint 28.35 GM Tube TOP PRN (10:00)
[2020-12-02] MEDS ORDERED: Alteplase 2 MG Vial IVPUSH ONE (15:02)
[2020-12-03] MEDS: Sodium Chloride 0.9% 10 ML Syringe FLUSH PRN ×3 (01:28→13:13)
[2020-12-03] MEDS: Cefepime 2 GM in Sodium Chloride 0.9% 50 ML IV SCH ×3 (05:57→22:29)
[2020-12-03] MEDS: oxyCODONE 5 MG Tab PO PRN ×3 (06:05→18:35)
[2020-12-03] MEDS: Levothyroxine 100 MCG Tab PO SCH (06:07)
[2020-12-03 06:48] LABS: ANION GAP 15.2 mEq/L (7-13); CHLORIDE,CL 106 mmol/L (98-107); SODIUM,NA 143 mmol/L (136-145)
--- NOTE | 2020-12-03 09:10 | PCM.SN.2 ---
- Free Text/Narrative Note: START OF DOCTOR EMAMIS PROGRESS NOTE Subjective: Objective: General: -Alert -No acute distress -No dyspnea -No tachypnea Heart: -Regular rate -Regular rhythm -No murmurs -No gallops -No rubs Lungs: -No wheeze -No rhonchi -No rales Abdomen: -Normal bowel sounds in all four quadrants -No rebound -No guarding -No tenderness Extremities: -2/4 pulse in all four extremities -No clubbing -No cyanosis -No edema Additional Details / Additional Findings / Exceptions / Miscellaneous: Pertinent Laboratory Results / Pertinent Radiology Results / Pertinent Diag nostic Results / Pertinent Vital Signs: Assessment / Plan: Disposition: END OF DOCTOR EMAMIS PROGRESS NOTE
[2020-12-03] MEDS: DULoxetine 30 MG Cap PO SCH (10:03)
[2020-12-03] MEDS: Gabapentin 300 MG Cap PO SCH ×3 (10:04→21:25)
[2020-12-03] MEDS: Aspirin 81 MG Tab.Chew PO SCH (10:04)
[2020-12-03] MEDS: Metoprolol Succinate 50 MG Tab.ER PO SCH (10:05)
[2020-12-03] MEDS ORDERED: 50% Dextrose in Water 50 ML Syringe IV PRN (12:14)
[2020-12-03] MEDS ORDERED: Glucagon,Human Recombinant 1 MG Vial IM PRN (12:14)
--- NOTE | 2020-12-03 12:22 | PCM.SN.2 ---
- Free Text/Narrative Note: START OF DOCTOR EMAMIS PROGRESS NOTE Subjective: The patient endorses no complaints at this time. He denies fever, rigors, nausea, vomiting, cough, wheeze, abdominal pain, chest pain, or any other constitutional complaints. I explained to the patient his current medical condition and plan of care and I have answered all of his questions Objective: General: -Alert -No acute distress -No dyspnea -No tachypnea Heart: -iRegular rate -Regular rhythm -No murmurs -No gallops -No rubs Lungs: -No wheeze -No rhonchi -No rales Abdomen: -Normal bowel sounds in all four quadrants -No rebound -No guarding -No tenderness Extremities: -2/4 pulse in all four extremities -No clubbing -No cyanosis -No edema Additional Details / Additional Findings / Exceptions / Miscellaneous: Pertinent Laboratory Results / Pertinent Radiology Results / Pertinent Diagnostic Results / Pertinent Vital Signs: heart rate 56 bpm, told her was 1.5, AST 67, ALT 130 Assessment / Plan: 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 Patient currently has LifeVest in place. Cefepime 2 g IV every 8 hours plus vancomycin 1 g IV every 12 hours until 11:59 PM on December 22, 2020 which will be a total of 6 weeks worth of IV antibiotics Coronary artery disease, status post [place], status post that. Aspirin 81 mg p.o. daily plus metoprolol 50 mg daily Anemia. Will monitor hemoglobin levels intermittently. Check serum ferritin, iron panel, fecal occult blood History of nephrectomy as a donor Transaminitis. Will monitor LFTs periodically with CMP. Will monitor PT/INR periodically. Right upper quadrant ultrasound pending Diabetes. Will check fasting glucose before every meal and at bedtime and prov deb suicide scale History of CVA. Aspirin 81 mg daily Angina Hyperlipidemia Hypertension. Toprol-XL 50 mg p.o. daily Degenerative disc disease History of cholelithiasis History of hepatitis C. Outpatient follow-up with infectious disease/gastroenterology if he has never previously received treatment for which I will refer him to his primary care physician or provider initially Osteoarthritis Chronic pain PTSD Obesity. Patient becomes regarding lifestyle modification Neuropathy. Cymbalta 60 mg p.o. daily plus gabapentin 300 mg p.o. 3 times daily Hypothyroidism. Synthroid 100 mcg p.o. daily DVT prophylaxis. Lovenox 40 mg subcutaneously daily Disposition: END OF DOCTOR EMAMIS PROGRESS NOTE
[2020-12-03] MEDS: Betamethasone Dipropionate 0.05% Crm 15 GM Tube TOP SCH ×3 (13:17→21:23)
[2020-12-03] MEDS: Docusate Sodium 100 MG Cap PO SCH ×2 (16:20→21:25)
[2020-12-03] MEDS ORDERED: Insulin Lispro 100 Units/ML 3 ML Vial SUBCUT SCH (18:00)
[2020-12-04] MEDS: oxyCODONE 5 MG Tab PO PRN ×4 (00:19→18:28)
[2020-12-04] MEDS: Levothyroxine 100 MCG Tab PO SCH (05:36)
[2020-12-04] MEDS: Cefepime 2 GM in Sodium Chloride 0.9% 50 ML IV SCH ×3 (05:37→22:08)
[2020-12-04 07:27] LABS: ANION GAP 12.3 mEq/L (7-13); CHLORIDE,CL 106 mmol/L (98-107); SODIUM,NA 143 mmol/L (136-145)
[2020-12-04] MEDS: Enoxaparin 40 MG/0.4 ML Syringe SUBCUT SCH (09:30)
[2020-12-04] MEDS: Metoprolol Succinate 50 MG Tab.ER PO SCH (09:30)
[2020-12-04] MEDS: DULoxetine 30 MG Cap PO SCH (09:30)
[2020-12-04] MEDS: Gabapentin 300 MG Cap PO SCH ×3 (09:31→21:47)
[2020-12-04] MEDS: Aspirin 81 MG Tab.Chew PO SCH (09:31)
--- NOTE | 2020-12-04 12:03 | US ---
EXAMINATION: Abdomen Ltd SEX: Male AGE: 65 years CLINICAL HISTORY: 65-year-old male with abnormally elevated liver function tests (LFTs). Cholecystectomy. Chest CT 30 October 2020 revealed "multilobar pneumonia". Interpretation: Homogeneously echodense fatty liver. No discrete intrahepatic cystic or solid mass lesion. Surgically absent gallbladder. No abnormal dilatation of the intra or extrahepatic biliary ducts. Left nephrectomy. Tiny lower midpole hypoechoic cyst but otherwise unremarkable right kidney. No nephrolithiasis or obstructive uropathy right kidney. Pancreas obscured by gas. No ascites. CONCLUSION: Cholecystectomy. Fatty liver. Nonvisualization pancreas.
[2020-12-04] MEDS: Docusate Sodium 100 MG Cap PO SCH ×2 (12:37→21:47)
[2020-12-04] MEDS: Betamethasone Dipropionate 0.05% Crm 15 GM Tube TOP SCH ×3 (12:39→21:45)
[2020-12-04] MEDS: Sodium Chloride 0.9% 10 ML Syringe FLUSH PRN ×2 (22:07→23:31)
[2020-12-05] MEDS: oxyCODONE 5 MG Tab PO PRN ×3 (00:44→16:20)
[2020-12-05] MEDS: Sodium Chloride 0.9% 10 ML Syringe FLUSH PRN ×5 (01:13→22:41)
[2020-12-05] MEDS: Cefepime 2 GM in Sodium Chloride 0.9% 50 ML IV SCH ×3 (05:50→22:10)
[2020-12-05] MEDS: Levothyroxine 100 MCG Tab PO SCH (05:52)
[2020-12-05] MEDS ORDERED: oxyCODONE 5 MG Tab PO PRN (08:00)
[2020-12-05] MEDS: Docusate Sodium 100 MG Cap PO SCH ×2 (08:21→20:11)
[2020-12-05] MEDS: DULoxetine 30 MG Cap PO SCH (08:21)
[2020-12-05] MEDS: Aspirin 81 MG Tab.Chew PO SCH (08:21)
[2020-12-05] MEDS: Enoxaparin 40 MG/0.4 ML Syringe SUBCUT SCH (08:22)
[2020-12-05] MEDS: Betamethasone Dipropionate 0.05% Crm 15 GM Tube TOP SCH ×3 (08:22→20:09)
[2020-12-05] MEDS: Gabapentin 300 MG Cap PO SCH ×3 (08:22→20:01)
[2020-12-05] MEDS: Metoprolol Succinate 50 MG Tab.ER PO SCH (08:22)
[2020-12-05] MEDS: Acetaminophen 325 MG Tab PO PRN (20:07)
[2020-12-06] MEDS: oxyCODONE 5 MG Tab PO PRN ×3 (00:51→17:27)
[2020-12-06] MEDS: Sodium Chloride 0.9% 10 ML Syringe FLUSH PRN ×5 (00:57→23:56)
[2020-12-06] MEDS: Cefepime 2 GM in Sodium Chloride 0.9% 50 ML IV SCH ×3 (06:04→21:58)
[2020-12-06] MEDS: Levothyroxine 100 MCG Tab PO SCH (06:09)
[2020-12-06] MEDS: Aspirin 81 MG Tab.Chew PO SCH (08:39)
[2020-12-06] MEDS: Metoprolol Succinate 50 MG Tab.ER PO SCH (08:39)
[2020-12-06] MEDS: DULoxetine 30 MG Cap PO SCH (08:40)
[2020-12-06] MEDS: Docusate Sodium 100 MG Cap PO SCH ×2 (08:40→21:52)
[2020-12-06] MEDS: Gabapentin 300 MG Cap PO SCH ×3 (08:40→21:52)
[2020-12-06] MEDS: Enoxaparin 40 MG/0.4 ML Syringe SUBCUT SCH (08:41)
[2020-12-06] MEDS: Betamethasone Dipropionate 0.05% Crm 15 GM Tube TOP SCH ×3 (08:43→21:52)
[2020-12-06] MEDS: hydrALAZINE 25 MG Tab PO SCH ×3 (08:53→21:50)
[2020-12-06] MEDS: Bacitracin Oint 28.35 GM Tube TOP PRN (14:43)
[2020-12-07] MEDS: Sodium Chloride 0.9% 10 ML Syringe FLUSH PRN ×5 (01:32→21:44)
[2020-12-07] MEDS: oxyCODONE 5 MG Tab PO PRN ×3 (01:34→17:32)
[2020-12-07] MEDS: Levothyroxine 100 MCG Tab PO SCH (05:46)
[2020-12-07] MEDS: hydrALAZINE 25 MG Tab PO SCH ×3 (05:46→21:43)
[2020-12-07] MEDS: Cefepime 2 GM in Sodium Chloride 0.9% 50 ML IV SCH ×3 (05:48→21:44)
[2020-12-07 06:34] LABS: ANION GAP 13.2 mEq/L (7-13); CHLORIDE,CL 106 mmol/L (98-107); SODIUM,NA 143 mmol/L (136-145)
[2020-12-07] MEDS: Gabapentin 300 MG Cap PO SCH ×3 (08:59→20:25)
[2020-12-07] MEDS: Docusate Sodium 100 MG Cap PO SCH ×2 (09:00→20:25)
[2020-12-07] MEDS ORDERED: hydrALAZINE 25 MG Tab PO SCH (09:00)
[2020-12-07] MEDS: Aspirin 81 MG Tab.Chew PO SCH (09:00)
[2020-12-07] MEDS: Metoprolol Succinate 50 MG Tab.ER PO SCH (09:01)
[2020-12-07] MEDS: Enoxaparin 40 MG/0.4 ML Syringe SUBCUT SCH (09:02)
[2020-12-07] MEDS: DULoxetine 30 MG Cap PO SCH (09:02)
[2020-12-07] MEDS: Betamethasone Dipropionate 0.05% Crm 15 GM Tube TOP SCH ×3 (12:35→20:27)
[2020-12-07] MEDS: Nystatin Topical Powder 30 GM Bottle TOP SCH ×2 (14:29→20:26)
[2020-12-08] MEDS: oxyCODONE 5 MG Tab PO PRN ×3 (02:06→17:21)
[2020-12-08] MEDS: hydrALAZINE 25 MG Tab PO SCH ×3 (05:54→21:31)
[2020-12-08] MEDS: Cefepime 2 GM in Sodium Chloride 0.9% 50 ML IV SCH ×3 (05:54→21:34)
[2020-12-08] MEDS: Levothyroxine 100 MCG Tab PO SCH (05:55)
[2020-12-08] MEDS: Metoprolol Succinate 50 MG Tab.ER PO SCH (09:11)
[2020-12-08] MEDS: Aspirin 81 MG Tab.Chew PO SCH (09:11)
[2020-12-08] MEDS: Docusate Sodium 100 MG Cap PO SCH ×2 (09:11→21:31)
[2020-12-08] MEDS: DULoxetine 30 MG Cap PO SCH (09:12)
[2020-12-08] MEDS: Gabapentin 300 MG Cap PO SCH ×3 (09:12→21:30)
[2020-12-08] MEDS: Enoxaparin 40 MG/0.4 ML Syringe SUBCUT SCH (09:12)
[2020-12-08] MEDS: Nystatin Topical Powder 30 GM Bottle TOP SCH ×2 (09:14→21:34)
[2020-12-08] MEDS: Betamethasone Dipropionate 0.05% Crm 15 GM Tube TOP SCH ×3 (09:15→21:33)
[2020-12-08] MEDS: Bacitracin Oint 28.35 GM Tube TOP PRN (09:15)
[2020-12-08] MEDS: Sodium Chloride 0.9% 10 ML Syringe FLUSH PRN (12:07)
[2020-12-09] MEDS: oxyCODONE 5 MG Tab PO PRN ×3 (02:31→18:22)
[2020-12-09] MEDS: Levothyroxine 100 MCG Tab PO SCH (05:57)
[2020-12-09] MEDS: hydrALAZINE 25 MG Tab PO SCH ×3 (05:57→21:26)
[2020-12-09] MEDS: Cefepime 2 GM in Sodium Chloride 0.9% 50 ML IV SCH ×3 (05:58→21:22)
[2020-12-09] MEDS: Metoprolol Succinate 50 MG Tab.ER PO SCH (08:51)
[2020-12-09] MEDS: Gabapentin 300 MG Cap PO SCH ×3 (08:52→21:27)
[2020-12-09] MEDS: Docusate Sodium 100 MG Cap PO SCH ×2 (08:52→21:27)
[2020-12-09] MEDS: Aspirin 81 MG Tab.Chew PO SCH (08:52)
[2020-12-09] MEDS: Acetaminophen 325 MG Tab PO PRN ×2 (08:54→21:27)
[2020-12-09] MEDS: Enoxaparin 40 MG/0.4 ML Syringe SUBCUT SCH (08:55)
[2020-12-09] MEDS: Nystatin Topical Powder 30 GM Bottle TOP SCH ×2 (08:56→21:25)
[2020-12-09] MEDS: Bacitracin Oint 28.35 GM Tube TOP PRN (08:56)
[2020-12-09] MEDS: DULoxetine 30 MG Cap PO SCH (08:57)
[2020-12-09] MEDS: Betamethasone Dipropionate 0.05% Crm 15 GM Tube TOP SCH ×3 (08:57→21:25)
[2020-12-09] MEDS: Sodium Chloride 0.9% 10 ML Syringe FLUSH PRN ×2 (12:34→14:13)
[2020-12-10] MEDS: oxyCODONE 5 MG Tab PO PRN ×3 (02:23→19:11)
[2020-12-10] MEDS: Levothyroxine 100 MCG Tab PO SCH (05:39)
[2020-12-10] MEDS: Sodium Chloride 0.9% 10 ML Syringe FLUSH PRN (05:40)
[2020-12-10] MEDS: hydrALAZINE 25 MG Tab PO SCH ×3 (05:40→21:56)
[2020-12-10] MEDS: Cefepime 2 GM in Sodium Chloride 0.9% 50 ML IV SCH ×3 (05:40→21:56)
[2020-12-10 06:35] LABS: ANION GAP 14.2 mEq/L (7-13); CHLORIDE,CL 108 mmol/L (98-107); SODIUM,NA 143 mmol/L (136-145)
--- NOTE | 2020-12-10 08:05 | PCM.SN.2 ---
- Free Text/Narrative Note: START OF DOCTOR CHENG PROGRESS NOTE Subjective: The patient complains of pain at the site of his AICD removal. He inquires about more frequent narcotic access. He denies fever, rigors, nausea, vomiting, cough, wheeze, abdominal pain, dyspnea. Indicates that he has been eating well and he is moving his bowels on a regular basis. I explained to the patient his current medical condition and plan of care and I have answered all of his questions Objective: General: -Alert -No acute distress -No dyspnea -No tachypnea Heart: -Regular rate -Regular rhythm -No murmurs -No gallops -No rubs Lungs: -No wheeze -No rhonchi -No rales Abdomen: -Normal bowel sounds in all four quadrants -No rebound -No guarding -No tenderness Extremities: -2/4 pulse in all four extremities -No clubbing -No cyanosis -No edema Additional Details / Additional Findings / Exceptions / Miscellaneous: Pertinent Laboratory Results / Pertinent Radiology Results / Pertinent Diagnostic Results / Pertinent Vital Signs: Vital signs stable, hemoglobin 1.8, platelet count 109,000, total bilirubin is 1.5, AST 75, ALT 140 Assessment / Plan: 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 Patient currently has LifeVest in place. Cefepime 2 g IV every 8 hours plus vancomycin 1 g IV every 12 hours until 11:59 PM on December 22, 2020 which will be a total of 6 weeks worth of IV antibiotics Coronary artery disease, status post [place], status post that. Aspirin 81 mg p.o. daily plus metoprolol 50 mg daily Iron deficiency anemia. Will monitor hemoglobin levels intermittently. Fecal occult blood negative. Ferrous sulfate 325 mg p.o. twice daily plus vitamin C 500 mg p.o. daily Thrombocytopenia. Will monitor platelet count intermittently History of left nephrectomy as a donor Hepatic steatosis Transaminitis. Will monitor LFTs periodically with CMP. Will monitor PT/INR periodically. Right upper quadrant ultrasound overall unremarkable Diabetes. Will check fasting glucose before every meal and at bedtime and provide suicide scale History of CVA. Aspirin 81 mg daily Angina Hyperlipidemia Hypertension. Toprol-XL 50 mg p.o. daily plus hydralazine 75 mg p.o. 3 times daily Degenerative disc disease History of hepatitis C. Outpatient follow-up with infectious disease/gastroenterology if he has never previously received treatment for which I will refer him to his primary care physician or provider initially Osteoarthritis Chronic pain PTSD Obesity. Patient becomes regarding lifestyle modification Neuropathy. Cymbalta 60 mg p.o. daily plus gabapentin 300 mg p.o. 3 times daily Hypothyroidism. Synthroid 100 mcg p.o. daily Constipation. Colace 100 mg p.o. twice daily DVT prophylaxis. Lovenox 40 mg subcutaneously daily Disposition: We will continue IV antibiotics until 11:59 PM on December 22, 2020 after which the patient should be a candidate for discharge END OF DOCTOR CHENG PROGRESS NOTE
[2020-12-10] MEDS: Ferrous Sulfate 325 MG Tab PO SCH ×2 (08:56→18:05)
[2020-12-10] MEDS: Metoprolol Succinate 50 MG Tab.ER PO SCH (08:56)
[2020-12-10] MEDS: DULoxetine 30 MG Cap PO SCH (08:56)
[2020-12-10] MEDS: Ascorbic Acid 500 MG Tab PO SCH (08:56)
[2020-12-10] MEDS: Gabapentin 300 MG Cap PO SCH ×3 (08:56→20:33)
[2020-12-10] MEDS: Aspirin 81 MG Tab.Chew PO SCH (08:56)
[2020-12-10] MEDS: Docusate Sodium 100 MG Cap PO SCH ×2 (08:56→20:33)
[2020-12-10] MEDS: Enoxaparin 40 MG/0.4 ML Syringe SUBCUT SCH (08:57)
[2020-12-10] MEDS: Betamethasone Dipropionate 0.05% Crm 15 GM Tube TOP SCH ×2 (09:08→13:12)
[2020-12-10] MEDS: Nystatin Topical Powder 30 GM Bottle TOP SCH ×2 (09:09→22:00)
[2020-12-10] MEDS: Acetaminophen 325 MG Tab PO PRN (09:19)
[2020-12-10] MEDS: diphenhydrAMINE 50 MG Cap PO PRN (22:30)
[2020-12-11] MEDS: oxyCODONE 5 MG Tab PO PRN ×3 (03:59→20:34)
[2020-12-11] MEDS: hydrALAZINE 25 MG Tab PO SCH ×3 (06:20→21:58)
[2020-12-11] MEDS: Cefepime 2 GM in Sodium Chloride 0.9% 50 ML IV SCH ×3 (06:21→22:01)
[2020-12-11] MEDS: Levothyroxine 100 MCG Tab PO SCH (06:21)
[2020-12-11] MEDS: Nystatin Topical Powder 30 GM Bottle TOP SCH ×2 (08:28→20:38)
[2020-12-11] MEDS: Aspirin 81 MG Tab.Chew PO SCH (08:29)
[2020-12-11] MEDS: Ferrous Sulfate 325 MG Tab PO SCH ×2 (08:29→17:21)
[2020-12-11] MEDS: Ascorbic Acid 500 MG Tab PO SCH (08:29)
[2020-12-11] MEDS: Docusate Sodium 100 MG Cap PO SCH ×2 (08:29→20:36)
[2020-12-11] MEDS: DULoxetine 30 MG Cap PO SCH (08:29)
[2020-12-11] MEDS: Gabapentin 300 MG Cap PO SCH ×3 (08:29→20:36)
[2020-12-11] MEDS: Enoxaparin 40 MG/0.4 ML Syringe SUBCUT SCH (08:30)
[2020-12-11] MEDS: Metoprolol Succinate 50 MG Tab.ER PO SCH (08:30)
[2020-12-11] MEDS: Isopropyl Myristate/Mineral Oil/Water Lotion 240 ML Bottle TOP PRN ×2 (12:02→20:32)
[2020-12-11] MEDS: Sodium Chloride 0.9% 10 ML Syringe FLUSH PRN ×2 (22:00→22:52)
[2020-12-11] MEDS: diphenhydrAMINE 50 MG Cap PO PRN (22:53)
[2020-12-12] MEDS: Sodium Chloride 0.9% 10 ML Syringe FLUSH PRN ×4 (00:02→14:08)
[2020-12-12] MEDS: Cefepime 2 GM in Sodium Chloride 0.9% 50 ML IV SCH ×3 (05:51→22:00)
[2020-12-12] MEDS: hydrALAZINE 25 MG Tab PO SCH ×3 (05:58→22:00)
[2020-12-12] MEDS: Levothyroxine 100 MCG Tab PO SCH (05:58)
[2020-12-12] MEDS: oxyCODONE 5 MG Tab PO PRN ×3 (06:06→22:00)
[2020-12-12] MEDS: Gabapentin 300 MG Cap PO SCH ×3 (08:08→20:30)
[2020-12-12] MEDS: Metoprolol Succinate 50 MG Tab.ER PO SCH (08:09)
[2020-12-12] MEDS: Docusate Sodium 100 MG Cap PO SCH ×2 (08:09→20:30)
[2020-12-12] MEDS: DULoxetine 30 MG Cap PO SCH (08:09)
[2020-12-12] MEDS: Ferrous Sulfate 325 MG Tab PO SCH ×2 (08:09→17:25)
[2020-12-12] MEDS: diphenhydrAMINE 50 MG Cap PO PRN (08:10)
[2020-12-12] MEDS: Aspirin 81 MG Tab.Chew PO SCH (08:10)
[2020-12-12] MEDS: Ascorbic Acid 500 MG Tab PO SCH (08:10)
[2020-12-12] MEDS: Enoxaparin 40 MG/0.4 ML Syringe SUBCUT SCH (08:10)
[2020-12-12] MEDS: Nystatin Topical Powder 30 GM Bottle TOP SCH ×2 (08:11→21:59)
[2020-12-12] MEDS: Bacitracin Oint 28.35 GM Tube TOP PRN (08:12)
[2020-12-13] MEDS: Sodium Chloride 0.9% 10 ML Syringe FLUSH PRN (00:04)
[2020-12-13] MEDS: Cefepime 2 GM in Sodium Chloride 0.9% 50 ML IV SCH (05:59)
[2020-12-13] MEDS: Levothyroxine 100 MCG Tab PO SCH (06:04)
[2020-12-13] MEDS: oxyCODONE 5 MG Tab PO PRN ×3 (06:04→21:58)
[2020-12-13] MEDS: hydrALAZINE 25 MG Tab PO SCH ×3 (06:05→21:57)
[2020-12-13 06:55] LABS: ANION GAP 14.2 mEq/L (7-13); CHLORIDE,CL 109 mmol/L (98-107); SODIUM,NA 142 mmol/L (136-145)
[2020-12-13] MEDS: Aspirin 81 MG Tab.Chew PO SCH (08:12)
[2020-12-13] MEDS: Docusate Sodium 100 MG Cap PO SCH ×2 (08:12→20:45)
[2020-12-13] MEDS: Metoprolol Succinate 50 MG Tab.ER PO SCH (08:12)
[2020-12-13] MEDS: Ascorbic Acid 500 MG Tab PO SCH (08:12)
[2020-12-13] MEDS: Enoxaparin 40 MG/0.4 ML Syringe SUBCUT SCH (08:12)
[2020-12-13] MEDS: DULoxetine 30 MG Cap PO SCH (08:12)
[2020-12-13] MEDS: Gabapentin 300 MG Cap PO SCH ×3 (08:12→20:45)
[2020-12-13] MEDS: Nystatin Topical Powder 30 GM Bottle TOP SCH ×2 (08:13→20:43)
[2020-12-13] MEDS: Ferrous Sulfate 325 MG Tab PO SCH ×2 (08:13→17:36)
[2020-12-13] MEDS: Meropenem 1 GM in Sodium Chloride 0.9% 100 ML IV SCH ×2 (13:49→21:58)
[2020-12-13] MEDS: Betamethasone Dipropionate 0.05% Crm 15 GM Tube TOP SCH ×2 (19:53→20:44)
[2020-12-13] MEDS: diphenhydrAMINE 50 MG Cap PO PRN (21:58)
[2020-12-14] MEDS: Sodium Chloride 0.9% 10 ML Syringe FLUSH PRN ×4 (00:20→23:08)
[2020-12-14] MEDS: oxyCODONE 5 MG Tab PO PRN ×3 (05:52→22:44)
[2020-12-14] MEDS: Levothyroxine 100 MCG Tab PO SCH (05:53)
[2020-12-14] MEDS: Meropenem 1 GM in Sodium Chloride 0.9% 100 ML IV SCH ×3 (05:53→22:31)
[2020-12-14] MEDS: hydrALAZINE 25 MG Tab PO SCH ×3 (05:53→22:37)
[2020-12-14] MEDS: Metoprolol Succinate 50 MG Tab.ER PO SCH (09:26)
[2020-12-14] MEDS: Ascorbic Acid 500 MG Tab PO SCH (09:26)
[2020-12-14] MEDS: DULoxetine 30 MG Cap PO SCH (09:26)
[2020-12-14] MEDS: Docusate Sodium 100 MG Cap PO SCH ×2 (09:26→20:44)
[2020-12-14] MEDS: Gabapentin 300 MG Cap PO SCH ×3 (09:26→20:44)
[2020-12-14] MEDS: Ferrous Sulfate 325 MG Tab PO SCH ×2 (09:26→17:47)
[2020-12-14] MEDS: Aspirin 81 MG Tab.Chew PO SCH (09:26)
[2020-12-14] MEDS: Enoxaparin 40 MG/0.4 ML Syringe SUBCUT SCH (09:26)
[2020-12-14] MEDS ORDERED: Alteplase 2 MG Vial IVPUSH PRN (10:23)
[2020-12-14] MEDS: Betamethasone Dipropionate 0.05% Crm 15 GM Tube TOP SCH (10:23)
[2020-12-14] MEDS: Nystatin Topical Powder 30 GM Bottle TOP SCH ×2 (11:12→22:30)
[2020-12-14] MEDS: BETAMETHASONE DIPROPIONATE 0.05% TOP SCH (20:49)
[2020-12-14] MEDS ORDERED: Water For Injection, Sterile 20 ML ONE (23:24)
[2020-12-15] MEDS: Sodium Chloride 0.9% 10 ML Syringe FLUSH PRN ×7 (01:36→23:54)
[2020-12-15] MEDS: Meropenem 1 GM in Sodium Chloride 0.9% 100 ML IV SCH ×3 (06:20→21:58)
[2020-12-15] MEDS: Levothyroxine 100 MCG Tab PO SCH (06:28)
[2020-12-15] MEDS: hydrALAZINE 25 MG Tab PO SCH ×3 (06:28→22:04)
[2020-12-15] MEDS: oxyCODONE 5 MG Tab PO PRN ×3 (06:30→22:05)
[2020-12-15] MEDS: Gabapentin 300 MG Cap PO SCH ×3 (10:04→20:12)
[2020-12-15] MEDS: Metoprolol Succinate 50 MG Tab.ER PO SCH (10:05)
[2020-12-15] MEDS: Ascorbic Acid 500 MG Tab PO SCH (10:06)
[2020-12-15] MEDS: DULoxetine 30 MG Cap PO SCH (10:06)
[2020-12-15] MEDS: Aspirin 81 MG Tab.Chew PO SCH (10:06)
[2020-12-15] MEDS: Ferrous Sulfate 325 MG Tab PO SCH ×2 (10:06→17:45)
[2020-12-15] MEDS: Docusate Sodium 100 MG Cap PO SCH ×2 (10:06→20:11)
[2020-12-15] MEDS: Enoxaparin 40 MG/0.4 ML Syringe SUBCUT SCH (10:08)
[2020-12-15] MEDS: Nystatin Topical Powder 30 GM Bottle TOP SCH ×2 (12:56→20:12)
[2020-12-15] MEDS: BETAMETHASONE DIPROPIONATE 0.05% TOP SCH ×2 (12:56→20:12)
[2020-12-16] MEDS: Sodium Chloride 0.9% 10 ML Syringe FLUSH PRN ×5 (01:32→22:48)
[2020-12-16] MEDS: Meropenem 1 GM in Sodium Chloride 0.9% 100 ML IV SCH ×3 (06:05→22:12)
[2020-12-16] MEDS: Levothyroxine 100 MCG Tab PO SCH (06:12)
[2020-12-16] MEDS: oxyCODONE 5 MG Tab PO PRN ×3 (06:13→22:21)
[2020-12-16] MEDS: hydrALAZINE 25 MG Tab PO SCH ×3 (06:13→22:20)
[2020-12-16] MEDS: Gabapentin 300 MG Cap PO SCH ×3 (10:11→20:26)
[2020-12-16] MEDS: DULoxetine 30 MG Cap PO SCH (10:12)
[2020-12-16] MEDS: Metoprolol Succinate 50 MG Tab.ER PO SCH (10:12)
[2020-12-16] MEDS: Ascorbic Acid 500 MG Tab PO SCH (10:13)
[2020-12-16] MEDS: Aspirin 81 MG Tab.Chew PO SCH (10:13)
[2020-12-16] MEDS: Ferrous Sulfate 325 MG Tab PO SCH ×2 (10:13→18:32)
[2020-12-16] MEDS: Docusate Sodium 100 MG Cap PO SCH ×2 (10:13→20:28)
[2020-12-16] MEDS: Enoxaparin 40 MG/0.4 ML Syringe SUBCUT SCH (10:15)
[2020-12-16] MEDS: BETAMETHASONE DIPROPIONATE 0.05% TOP SCH ×2 (10:17→20:27)
[2020-12-16] MEDS: Nystatin Topical Powder 30 GM Bottle TOP SCH ×2 (10:17→20:27)
[2020-12-17] MEDS: Sodium Chloride 0.9% 10 ML Syringe FLUSH PRN ×4 (00:04→06:23)
[2020-12-17] MEDS: Meropenem 1 GM in Sodium Chloride 0.9% 100 ML IV SCH ×3 (05:45→22:07)
[2020-12-17] MEDS: Levothyroxine 100 MCG Tab PO SCH (05:50)
[2020-12-17] MEDS: hydrALAZINE 25 MG Tab PO SCH ×3 (05:50→22:07)
[2020-12-17] MEDS: oxyCODONE 5 MG Tab PO PRN ×3 (06:24→22:32)
[2020-12-17] MEDS: Aspirin 81 MG Tab.Chew PO SCH (09:27)
[2020-12-17] MEDS: Docusate Sodium 100 MG Cap PO SCH ×2 (09:27→20:30)
[2020-12-17] MEDS: Ferrous Sulfate 325 MG Tab PO SCH ×2 (09:27→17:16)
[2020-12-17] MEDS: Gabapentin 300 MG Cap PO SCH ×3 (09:28→20:30)
[2020-12-17] MEDS: DULoxetine 30 MG Cap PO SCH (09:28)
[2020-12-17] MEDS: Enoxaparin 40 MG/0.4 ML Syringe SUBCUT SCH (09:28)
[2020-12-17] MEDS: BETAMETHASONE DIPROPIONATE 0.05% TOP SCH ×2 (09:29→22:08)
[2020-12-17] MEDS: Nystatin Topical Powder 30 GM Bottle TOP SCH ×2 (09:30→22:08)
[2020-12-17] MEDS: Ascorbic Acid 500 MG Tab PO SCH (09:31)
[2020-12-17] MEDS: Metoprolol Succinate 50 MG Tab.ER PO SCH (09:31)
--- NOTE | 2020-12-17 19:40 | PCM.PN ---
- General Info Date of Service: 12/17/20 Admission Dx/Problem (Free Text): Admission Diagnosis/Problem Admission Diagnosis/Problem Endocarditis Subjective Update: Aubrey is a 65-year-old man who was admitted here on swing bed for IV antibiotic administration for a recent history of endocarditis. He was initially on cefepime, and developed a fairly severe rash of his lower extremities as well as his arm. He has been switched to meropenem, and is currently on meropenem and vancomycin. The rash is slowly resolving as the cefepime clears his system. He has no other complaints or concerns at this time, nursing has no concerns. - Patient Data Vitals - Most Recent: Last Vital Signs Temp 97.9 F 12/17/20 08:09 Pulse 61 12/17/20 09:31 Resp 20 12/17/20 08:09 BP 119/71 12/17/20 14:11 Pulse Ox 97 12/17/20 08:09 Weight - Most Recent: 273 lb 9.6 oz I&O - Last 24 Hours: Intake & Output 12/17/20 12/17/20 12/17/20 06:59 14:59 22:59 Intake Total 364 615 175 Balance 364 615 175 Med Orders - Current: Current Medications Acetaminophen (Acetaminophen 325 Mg Tab) 650 mg PO Q4H PRN PRN Reason: Pain (Mild 1-3)/fever Last Admin: 12/10/20 09:19 Dose: 650 mg Documented by: Alteplase, Recombinant (Alteplase 2 Mg Vial) 2 mg IVPUSH ASDIRECTED PRN PRN Reason: Keep Vein Open Last Admin: 12/14/20 11:15 Dose: 2 mg Documented by: Artificial Tears (Carboxymethylcellulose Sodium 1% Ophth Gel 0.4 Ml Ud) 0 each EYEBOTH QID PRN PRN Reason: Dry Eyes Ascorbic Acid (Ascorbic Acid 500 Mg Tab) 500 mg PO DAILY CIELO Last Admin: 12/17/20 09:31 Dose: 500 mg Documented by: Aspirin (Aspirin 81 Mg Tab.Chew) 81 mg PO DAILY CIELO Last Admin: 12/17/20 09:27 Dose: 81 mg Documented by: Bacitracin (Bacitracin Oint 28.35 Gm Tube) 0 gm TOP BID PRN PRN Reason: Wound Care Last Admin: 12/12/20 08:12 Dose: 1 applic Documented by: Dextrose/Water (50% Dextrose In Water 50 Ml Syringe) 50 ml IV Q15M PRN PRN Reason: Hypoglycemia Diphenhydramine HCl (Diphenhydramine 50 Mg Cap) 50 mg PO Q6H PRN PRN Reason: Itching Last Admin: 12/13/20 21:58 Dose: 50 mg Documented by: Docusate Sodium (Docusate Sodium 100 Mg Cap) 100 mg PO BID [facility] Last Admin: 12/17/20 09:27 Dose: 100 mg Documented by: Duloxetine HCl (Duloxetine 30 Mg Cap) 60 mg PO DAILY [facility] Last Admin: 12/17/20 09:28 Dose: 60 mg Documented by: Emollient Ointment (Isopropyl Myristate/Mineral Oil/Water Lotion 240 Ml Bottle) 0 ml TOP Q4H PRN PRN Reason: Dry skin Last Admin: 12/11/20 20:32 Dose: 1 applic Documented by: Enoxaparin Sodium (Enoxaparin 40 Mg/0.4 Ml Syringe) 40 mg SUBCUT DAILY [facility] Last Admin: 12/17/20 09:28 Dose: 40 mg Documented by: Ferrous Sulfate (Ferrous Sulfate 325 Mg Tab) 325 mg PO BIDMEALS [facility] Last Admin: 12/17/20 17:16 Dose: 325 mg Documented by: Gabapentin (Gabapentin 300 Mg Cap) 300 mg PO TID [facility] Last Admin: 12/17/20 14:11 Dose: 300 mg Documented by: Glucagon (Glucagon,Human Recombinant 1 Mg Vial) 1 mg IM Q15M PRN PRN Reason: Hypoglycemia Hydralazine HCl (Hydralazine 25 Mg Tab) 75 mg PO Q8HR [facility] Last Admin: 12/17/20 14:11 Dose: 75 mg Documented by: Vancomycin HCl 1 gm/ Sodium (Chloride) 250 mls @ 166.667 mls/hr IV Q12H [facility] Last Admin: 12/17/20 11:52 Dose: 166.667 mls/hr Documented by: Meropenem 1 gm/ Sodium (Chloride) 100 mls @ 200 mls/hr IV Q8HR [facility] Last Admin: 12/17/20 14:10 Dose: 200 mls/hr Documented by: Levothyroxine Sodium (Levothyroxine 100 Mcg Tab) 100 mcg PO 0600 [facility] Last Admin: 12/17/20 05:50 Dose: 100 mcg Documented by: Metoprolol Succinate (Metoprolol Succinate 50 Mg Tab.Er) 50 mg PO DAILY [facility] Last Admin: 12/17/20 09:31 Dose: 50 mg Documented by: Betamethasone Dipropionate ( Augmented) 0.05% Cream 0 each TOP BID [facility] Last Admin: 12/17/20 09:29 Dose: 1 each Documented by: Nystatin (Nystatin Topical Powder 30 Gm Bottle) 0 gm TOP BID [facility] Last Admin: 12/17/20 09:30 Dose: 1 applic Documented by: Oxycodone HCl (Oxycodone 5 Mg Tab) 10 mg PO Q8H PRN PRN Reason: Pain (severe 7-10) Last Admin: 12/17/20 14:25 Dose: 10 mg Documented by: Oxycodone HCl (Oxycodone 5 Mg Tab) 5 mg PO Q8H PRN PRN Reason: Pain (moderate 4-6) Sodium Chloride (Sodium Chloride 0.9% 10 Ml Syringe) 10 ml FLUSH ASDIRECTED PRN PRN Reason: IV Use Last Admin: 12/17/20 06:23 Dose: 10 ml Documented by: Vancomycin HCl (Pharmacy To Dose - Vancomycin) 1 dose .XX ASDIRECTED [facility] Discontinued Medications Alteplase, Recombinant (Alteplase 2 Mg Vial) 2 mg IVPUSH ONETIME ONE Stop: 12/02/20 15:03 Last Admin: 12/02/20 22:56 Dose: Not Given Documented by: Artificial Tears (Carboxymethylcellulose Sodium 1% Ophth Gel 0.4 Ml Ud) 1 each EYEBOTH TID PRN PRN Reason: Dry Eyes Last Admin: 11/27/20 23:17 Dose: 1 each Documented by: Atorvastatin Calcium (Atorvastatin 20 Mg Tab) 40 mg PO DAILY [facility] Last Admin: 11/28/20 08:17 Dose: 40 mg Documented by: Bacitracin (Bacitracin Oint 28.35 Gm Tube) 0 gm TOP TID [facility] Betamethasone Dipropionate (Betamethasone Dipropionate 0.05% Crm 15 Gm Tube) 0 gm TOP TID [facility] Last Admin: 12/10/20 13:12 Dose: 1 applic Documented by: Betamethasone Dipropionate (Betamethasone Dipropionate 0.05% Crm 15 Gm Tube) 0 gm TOP BID [facility] Last Admin: 12/14/20 10:23 Dose: Not Given Documented by: Hydralazine HCl (Hydralazine 25 Mg Tab) 50 mg PO Q8HR [facility] Last Admin: 12/07/20 05:46 Dose: 50 mg Documented by: Hydralazine HCl (Hydralazine 25 Mg Tab) 75 mg PO Q8HR [facility] Last Admin: 12/07/20 12:20 Dose: Not Given Documented by: Cefepime HCl 2 gm/ Sodium (Chloride) 50 mls @ 100 mls/hr IV Q8HR [facility] Last Admin: 12/13/20 05:59 Dose: 100 mls/hr Documented by: Vancomycin HCl 1.25 gm/ Sodium (Chloride) 250 mls @ 167 mls/hr IV BID [facility] Last Admin: 11/16/20 22:35 Dose: Not Given Documented by: Vancomycin HCl 1.5 gm/ Premix 300 mls @ 200 mls/hr IV Q12H [facility] Last Admin: 11/18/20 11:48 Dose: Not Given Documented by: Sterile Water (Sterile Water For Injection) Confirm Administered Dose 20 mls @ as directed .ROUTE .STK-MED ONE Stop: 12/14/20 10:58 Last Admin: 12/14/20 11:33 Dose: Not Given Documented by: Sterile Water (Sterile Water For Injection) Confirm Administered Dose 20 mls @ as directed .ROUTE .STK-MED ONE Stop: 12/14/20 23:25 Last Admin: 12/15/20 00:31 Dose: Not Given Documented by: Insulin Human Lispro (Insulin Lispro 100 Units/Ml 3 Ml Vial) 0 unit SUBCUT WITHMEALSANDBED CIELO; Protocol Last Admin: 11/27/20 12:23 Dose: Not Given Documented by: Insulin Human Lispro (Insulin Lispro 100 Units/Ml 3 Ml Vial) 0 unit SUBCUT WITHMEALSANDBED CIELO; Protocol Oxycodone HCl (Oxycodone 5 Mg Tab) 5 mg PO Q6HR PRN PRN Reason: Pain (moderate 4-6) Last Admin: 12/02/20 12:02 Dose: 5 mg Documented by: Oxycodone HCl (Oxycodone 5 Mg Tab) 10 mg PO Q6HR PRN PRN Reason: Pain (severe 7-10) Last Admin: 12/05/20 00:44 Dose: 10 mg Documented by: - Exam Physical Findings Comments:: General: Aubrey is a 65-year-old man in no acute distress Oropharynx is clear, mucous membranes are moist Neurological: Cranial nerves II through XII are intact throughout He is alert and oriented x3 - Patient Data Result Diagrams: 12/13/20 06:07 12/13/20 06:07 Sepsis Event Note - Evaluation Sepsis Screening Result: No Definite Risk - Focused Exam Vital Signs: Vital Signs Temp Pulse Pulse Resp BP BP Pulse Ox 12/17/20 14:11 119/71 12/17/20 09:31 61 119/71 12/17/20 08:09 97.9 F 61 20 119/71 97 - Problem List & Annotations (1) Endocarditis determined by echocardiography SNOMED Code(s): 23166277, [id number] Code(s): I38 - ENDOCARDITIS, VALVE UNSPECIFIED Status: Acute Priority: High Current Visit: Yes Annotation/Comment:: Infected AICD lead, no organism isolated - Problem List Review Problem List Initiated/Reviewed/Updated: Yes - Plan Plan:: Assessment: 1. 65-year-old man, status post severe cellulitis of AICD pocket, and endocarditis involving AICD lead; admitted here on swing bed for IV antibiotic treatment 2. Endocarditis, involving AICD lead, no organism identified, has been afebrile 3. Chronic kidney disease stage III 4. Severe atopic rash, secondary to cefepime administration, resolving Plan: 1. Continue IV meropenem and vancomycin; vancomycin dosed per pharmacy 2. Continue all other home medications 3. Current recommended IV antibiotic regiment will complete on December 22, anticipate discharge December 2 AM
[2020-12-18] MEDS: Meropenem 1 GM in Sodium Chloride 0.9% 100 ML IV SCH ×3 (05:53→21:55)
[2020-12-18] MEDS: Levothyroxine 100 MCG Tab PO SCH (05:53)
[2020-12-18] MEDS: hydrALAZINE 25 MG Tab PO SCH ×3 (05:53→22:03)
[2020-12-18] MEDS: oxyCODONE 5 MG Tab PO PRN ×3 (06:27→22:33)
[2020-12-18] MEDS: Docusate Sodium 100 MG Cap PO SCH ×2 (08:45→22:00)
[2020-12-18] MEDS: Metoprolol Succinate 50 MG Tab.ER PO SCH (08:45)
[2020-12-18] MEDS: Nystatin Topical Powder 30 GM Bottle TOP SCH ×2 (08:45→22:00)
[2020-12-18] MEDS: Ferrous Sulfate 325 MG Tab PO SCH ×2 (08:46→17:30)
[2020-12-18] MEDS: Ascorbic Acid 500 MG Tab PO SCH (08:46)
[2020-12-18] MEDS: Aspirin 81 MG Tab.Chew PO SCH (08:46)
[2020-12-18] MEDS: Gabapentin 300 MG Cap PO SCH ×3 (08:46→22:00)
[2020-12-18] MEDS: BETAMETHASONE DIPROPIONATE 0.05% TOP SCH ×2 (08:47→22:01)
[2020-12-18] MEDS: DULoxetine 30 MG Cap PO SCH (08:47)
[2020-12-18] MEDS: Enoxaparin 40 MG/0.4 ML Syringe SUBCUT SCH (08:48)
[2020-12-18] MEDS: Sodium Chloride 0.9% 10 ML Syringe FLUSH PRN (13:26)
[2020-12-19] MEDS: Levothyroxine 100 MCG Tab PO SCH (06:08)
[2020-12-19] MEDS: hydrALAZINE 25 MG Tab PO SCH ×3 (06:08→21:57)
[2020-12-19] MEDS: Meropenem 1 GM in Sodium Chloride 0.9% 100 ML IV SCH ×3 (06:15→22:01)
[2020-12-19] MEDS: oxyCODONE 5 MG Tab PO PRN ×3 (06:18→22:38)
[2020-12-19] MEDS: Aspirin 81 MG Tab.Chew PO SCH (09:38)
[2020-12-19] MEDS: Ferrous Sulfate 325 MG Tab PO SCH ×2 (09:38→17:27)
[2020-12-19] MEDS: Gabapentin 300 MG Cap PO SCH ×3 (09:38→21:57)
[2020-12-19] MEDS: Ascorbic Acid 500 MG Tab PO SCH (09:38)
[2020-12-19] MEDS: DULoxetine 30 MG Cap PO SCH (09:38)
[2020-12-19] MEDS: Docusate Sodium 100 MG Cap PO SCH ×2 (09:39→21:56)
[2020-12-19] MEDS: Enoxaparin 40 MG/0.4 ML Syringe SUBCUT SCH (09:41)
[2020-12-19] MEDS: Nystatin Topical Powder 30 GM Bottle TOP SCH ×2 (09:42→21:58)
[2020-12-19] MEDS: BETAMETHASONE DIPROPIONATE 0.05% TOP SCH ×2 (09:43→22:00)
[2020-12-19] MEDS: Metoprolol Succinate 50 MG Tab.ER PO SCH (09:44)
[2020-12-20] MEDS: Meropenem 1 GM in Sodium Chloride 0.9% 100 ML IV SCH ×3 (05:47→21:08)
[2020-12-20] MEDS: hydrALAZINE 25 MG Tab PO SCH ×3 (05:53→21:07)
[2020-12-20] MEDS: Levothyroxine 100 MCG Tab PO SCH (05:53)
[2020-12-20] MEDS: oxyCODONE 5 MG Tab PO PRN ×2 (06:32→16:05)
[2020-12-20 07:10] LABS: ANION GAP 11.5 mEq/L (7-13); CHLORIDE,CL 104 mmol/L (98-107); SODIUM,NA 139 mmol/L (136-145)
[2020-12-20] MEDS: Enoxaparin 40 MG/0.4 ML Syringe SUBCUT SCH (08:42)
[2020-12-20] MEDS: Docusate Sodium 100 MG Cap PO SCH ×2 (08:42→21:07)
[2020-12-20] MEDS: Ferrous Sulfate 325 MG Tab PO SCH ×2 (08:42→18:16)
[2020-12-20] MEDS: Metoprolol Succinate 50 MG Tab.ER PO SCH (08:42)
[2020-12-20] MEDS: Aspirin 81 MG Tab.Chew PO SCH (08:42)
[2020-12-20] MEDS: Ascorbic Acid 500 MG Tab PO SCH (08:42)
[2020-12-20] MEDS: Gabapentin 300 MG Cap PO SCH ×3 (08:42→21:07)
[2020-12-20] MEDS: DULoxetine 30 MG Cap PO SCH (08:42)
[2020-12-20] MEDS: Nystatin Topical Powder 30 GM Bottle TOP SCH ×2 (08:46→22:34)
[2020-12-20] MEDS: BETAMETHASONE DIPROPIONATE 0.05% TOP SCH ×2 (08:47→22:26)
[2020-12-21] MEDS: Levothyroxine 100 MCG Tab PO SCH (06:06)
[2020-12-21] MEDS: hydrALAZINE 25 MG Tab PO SCH ×3 (06:06→21:32)
[2020-12-21] MEDS: Meropenem 1 GM in Sodium Chloride 0.9% 100 ML IV SCH ×3 (06:08→21:31)
[2020-12-21] MEDS: Metoprolol Succinate 50 MG Tab.ER PO SCH (08:12)
[2020-12-21] MEDS: Docusate Sodium 100 MG Cap PO SCH ×2 (08:12→21:32)
[2020-12-21] MEDS: Gabapentin 300 MG Cap PO SCH ×3 (08:12→21:32)
[2020-12-21] MEDS: Aspirin 81 MG Tab.Chew PO SCH (08:12)
[2020-12-21] MEDS: Ferrous Sulfate 325 MG Tab PO SCH ×2 (08:12→17:19)
[2020-12-21] MEDS: Ascorbic Acid 500 MG Tab PO SCH (08:12)
[2020-12-21] MEDS: DULoxetine 30 MG Cap PO SCH (08:12)
[2020-12-21] MEDS: Enoxaparin 40 MG/0.4 ML Syringe SUBCUT SCH (08:13)
[2020-12-21] MEDS: oxyCODONE 5 MG Tab PO PRN ×3 (08:14→17:19)
[2020-12-21] MEDS: BETAMETHASONE DIPROPIONATE 0.05% TOP SCH ×2 (08:15→21:40)
[2020-12-21] MEDS: Nystatin Topical Powder 30 GM Bottle TOP SCH ×2 (08:16→21:39)
[2020-12-21] MEDS: Sodium Chloride 0.9% 10 ML Syringe FLUSH PRN ×2 (15:55→23:35)
[2020-12-22] MEDS: oxyCODONE 5 MG Tab PO PRN ×3 (01:10→17:46)
[2020-12-22] MEDS: Levothyroxine 100 MCG Tab PO SCH (05:23)
[2020-12-22] MEDS: hydrALAZINE 25 MG Tab PO SCH ×3 (05:23→22:03)
[2020-12-22] MEDS: Meropenem 1 GM in Sodium Chloride 0.9% 100 ML IV SCH ×3 (05:24→22:04)
[2020-12-22] MEDS: Sodium Chloride 0.9% 10 ML Syringe FLUSH PRN ×3 (05:24→23:55)
[2020-12-22] MEDS: Metoprolol Succinate 50 MG Tab.ER PO SCH (08:44)
[2020-12-22] MEDS: Ascorbic Acid 500 MG Tab PO SCH (08:44)
[2020-12-22] MEDS: Ferrous Sulfate 325 MG Tab PO SCH ×2 (08:44→17:47)
[2020-12-22] MEDS: DULoxetine 30 MG Cap PO SCH (08:44)
[2020-12-22] MEDS: Aspirin 81 MG Tab.Chew PO SCH (08:44)
[2020-12-22] MEDS: Docusate Sodium 100 MG Cap PO SCH ×2 (08:44→22:00)
[2020-12-22] MEDS: Gabapentin 300 MG Cap PO SCH ×3 (08:44→22:00)
[2020-12-22] MEDS: Enoxaparin 40 MG/0.4 ML Syringe SUBCUT SCH (08:45)
[2020-12-22] MEDS: Nystatin Topical Powder 30 GM Bottle TOP SCH ×2 (08:49→22:02)
[2020-12-22] MEDS: BETAMETHASONE DIPROPIONATE 0.05% TOP SCH ×2 (14:43→22:03)
[2020-12-23] MEDS: oxyCODONE 5 MG Tab PO PRN ×3 (01:48→17:54)
[2020-12-23] MEDS: hydrALAZINE 25 MG Tab PO SCH ×3 (05:32→22:12)
[2020-12-23] MEDS: Levothyroxine 100 MCG Tab PO SCH (05:32)
[2020-12-23] MEDS: Sodium Chloride 0.9% 10 ML Syringe FLUSH PRN ×2 (05:34→22:15)
[2020-12-23] MEDS: Meropenem 1 GM in Sodium Chloride 0.9% 100 ML IV SCH ×3 (05:34→22:17)
[2020-12-23] MEDS: Enoxaparin 40 MG/0.4 ML Syringe SUBCUT SCH (08:49)
[2020-12-23] MEDS: Docusate Sodium 100 MG Cap PO SCH ×2 (08:50→22:12)
[2020-12-23] MEDS: Metoprolol Succinate 50 MG Tab.ER PO SCH (08:50)
[2020-12-23] MEDS: Ascorbic Acid 500 MG Tab PO SCH (08:50)
[2020-12-23] MEDS: Gabapentin 300 MG Cap PO SCH ×3 (08:50→22:12)
[2020-12-23] MEDS: DULoxetine 30 MG Cap PO SCH (08:50)
[2020-12-23] MEDS: Aspirin 81 MG Tab.Chew PO SCH (08:50)
[2020-12-23] MEDS: Ferrous Sulfate 325 MG Tab PO SCH ×2 (08:50→17:24)
[2020-12-23] MEDS: BETAMETHASONE DIPROPIONATE 0.05% TOP SCH ×2 (08:51→22:25)
[2020-12-23] MEDS: Nystatin Topical Powder 30 GM Bottle TOP SCH ×2 (09:30→22:27)
[2020-12-24] MEDS: Sodium Chloride 0.9% 10 ML Syringe FLUSH PRN ×3 (00:03→09:48)
[2020-12-24] MEDS: oxyCODONE 5 MG Tab PO PRN ×2 (04:03→11:53)
[2020-12-24] MEDS: Meropenem 1 GM in Sodium Chloride 0.9% 100 ML IV SCH ×2 (05:38→15:16)
[2020-12-24] MEDS: Levothyroxine 100 MCG Tab PO SCH (05:44)
[2020-12-24] MEDS: hydrALAZINE 25 MG Tab PO SCH ×2 (05:44→15:16)
[2020-12-24] MEDS: Docusate Sodium 100 MG Cap PO SCH (09:12)
[2020-12-24] MEDS: Ferrous Sulfate 325 MG Tab PO SCH (09:12)
[2020-12-24] MEDS: Aspirin 81 MG Tab.Chew PO SCH (09:12)
[2020-12-24] MEDS: DULoxetine 30 MG Cap PO SCH (09:13)
[2020-12-24] MEDS: Enoxaparin 40 MG/0.4 ML Syringe SUBCUT SCH (09:14)
[2020-12-24] MEDS: Metoprolol Succinate 50 MG Tab.ER PO SCH (09:18)
[2020-12-24] MEDS: Gabapentin 300 MG Cap PO SCH ×2 (09:18→15:16)
[2020-12-24] MEDS: Ascorbic Acid 500 MG Tab PO SCH (09:20)
[2020-12-24 09:24] VITALS: BP 111/69; PULSE 52
--- NOTE | 2020-12-24 10:01 | PCM.DCSUM1 ---
Discharge Summary - Hospital Course Free Text/Narrative:: Assessment: 1. 65-year-old man, status post severe cellulitis of AICD pocket, and endocarditis involving AICD lead; admitted to [facility] for ongoing IV antibiotic treatment, in swing bed status. 2. Endocarditis, involving AICD lead, no organism identified, has been afebrile 3. Chronic kidney disease stage III 4. Severe atopic rash, secondary to cefepime administration, resolving Patient was admitted for long-term antibiotic administration under a controlled and monitored environment. Patient admitted to the hospital internal medicine/hospitalist service with ID recommendations for IV meropenem and vancomycin. Vancomycin was provided based upon pharmacy protocol. Patient completed required antibiotic course on the morning of 12/24/2020 without any complication. Patient was seen weekly by the inpatient service. Patient was kept on home medications at regular dose. In addition, due to hypertension, patient was placed on hydralazine every 8 hours which she has been on. A prescription has been provided for ongoing outpatient treatment. Follow-up with PCP regarding this new medication and how well it is working for him post discharge. Patient had a severe atopic rash as noted above. This was secondary to cefepime administration. Patient received topical steroids and creams with good effect. For further details please see prior notes including history and physical on presentation. HPI Initial Comments: For complete details regarding intake please see original H&P at the time of intake. 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 No organism was ever isolated and so pt is recommended for 6 weeks of IV vanco and cefepime starting on 11/10. He reports some post op pain after long ambulance ride. - Exam at the time of intake Quality Assessment: No: Supplemental Oxygen General: Alert, Oriented, Cooperative HEENT: Conjunctiva Clear Neck: Supple Lungs: Clear to Auscultation, Normal Respiratory Effort Cardiovascular: Regular Rate, Regular Rhythm GI/Abdominal Exam: Normal Bowel Sounds, Soft, Non-Tender, No Distention, Other (obese) Extremities: No Pedal Edema Skin: Other (clean dressing over prior AICD site) Neurological: Normal Speech Neuro Extensive - Mental Status: Alert, Oriented x3, Normal Mood/Affect Neuro Extensive - Motor, Sensory, Reflexes: No: Tremor Psychiatric: Alert, Normal Affect, Normal Mood - Discharge Data Discharge Date: 12/24/20 Discharge Disposition: Home, Self-Care 01 Condition: Good - Referral to Home Health Primary Care Physician: Samanta Varela NP - Discharge Diagnosis/Problem(s) (1) Endocarditis determined by echocardiography SNOMED Code(s): 55178655, [id number] ICD Code: I38 - ENDOCARDITIS, VALVE UNSPECIFIED Status: Acute Priority: High Current Visit: Yes Problem Details: Infected AICD lead, no organism isolated - Discharge Plan *PRESCRIPTION DRUG MONITORING PROGRAM REVIEWED*: Yes *COPY OF PRESCRIPTION DRUG MONITORING REPORT IN PATIENT TIFFANIE: Yes Prescriptions/Med Rec: hydrALAZINE [Apresoline] 75 mg PO Q8HR #90 tablet oxyCODONE 5 mg PO Q6HR PRN #10 PRN Reason: Pain (Moderate 4-6) Acetaminophen [Tylenol] 650 mg PO Q4H PRN #60 tablet PRN Reason: Pain (Mild 1-3)/fever Home Medications: Home Meds DULoxetine [Cymbalta] 60 mg PO DAILY 09/13/13 [History] Metoprolol Succinate [Toprol XL] 50 mg PO DAILY 09/13/13 [History] Levothyroxine [Synthroid] 100 mcg PO DAILY 07/18/18 [History] atorvaSTATin [Lipitor] 40 mg PO DAILY 07/18/18 [History] Aspirin 81 mg PO DAILY 11/16/20 [History] Carboxymethylcellulose Sodium [Refresh Tears 0.5%] 1 drop EYEBOTH TID PRN 11/16/20 [History] Gabapentin [Neurontin] 300 mg PO TID 11/16/20 [History] Acetaminophen [Tylenol] 650 mg PO Q4H PRN #60 tablet 12/24/20 [Rx] hydrALAZINE [Apresoline] 75 mg PO Q8HR #90 tablet 12/24/20 [Rx] oxyCODONE 5 mg PO Q6HR PRN #10 12/24/20 [Rx] Patient Handouts: Hepatitis C, [id number], Endocarditis - Discharge Summary/Plan Comment DC Time >30 min.: Yes - General Info Date of Service: 12/24/20 Admission Dx/Problem (Free Text: Admission Diagnosis/Problem Admission Diagnosis/Problem Endocarditis Subjective Update: Patient does not endorse any complaints other than some discomfort around the previous pocket area in the left shoulder. Has been controlled with oxycodone. Otherwise no range of motion abnormalities in the arm according to him. Denies any fever, chills, chest pain, chest pressure, pleurisy, nausea/vomiting, abdominal discomfort or difficulties with voiding. P.o. intake is adequate. Functional Status: Reports: Pain Controlled, Tolerating Diet, Ambulating, New Symptoms - Review of Systems General: Reports: No Symptoms Pulmonary: Reports: No Symptoms Cardiovascular: Reports: No Symptoms Gastrointestinal: Reports: No Symptoms Genitourinary: Reports: No Symptoms - Patient Data Vitals - Most Recent: Last Vital Signs Temp 98 F 12/23/20 22:00 Pulse 52 L 12/24/20 09:18 Resp 20 12/23/20 22:00 BP 111/69 12/24/20 09:18 Pulse Ox 99 12/23/20 22:00 Weight - Most Recent: 271 lb 3.2 oz I&O - Last 24 hours: Intake & Output 12/23/20 12/24/20 12/24/20 22:59 06:59 14:59 Intake Total 210 350 Balance 210 350 Med Orders - Current: Current Medications Acetaminophen (Acetaminophen 325 Mg Tab) 650 mg PO Q4H PRN PRN Reason: Pain (Mild 1-3)/fever Last Admin: 12/10/20 09:19 Dose: 650 mg Documented by: Alteplase, Recombinant (Alteplase 2 Mg Vial) 2 mg IVPUSH ASDIRECTED PRN PRN Reason: Keep Vein Open Last Admin: 12/14/20 11:15 Dose: 2 mg Documented by: Artificial Tears (Carboxymethylcellulose Sodium 1% Ophth Gel 0.4 Ml Ud) 0 each EYEBOTH QID PRN PRN Reason: Dry Eyes Ascorbic Acid (Ascorbic Acid 500 Mg Tab) 500 mg PO DAILY [facility] Last Admin: 12/24/20 09:20 Dose: 500 mg Documented by: Aspirin (Aspirin 81 Mg Tab.Chew) 81 mg PO DAILY [facility] Last Admin: 12/24/20 09:12 Dose: 81 mg Documented by: Bacitracin (Bacitracin Oint 28.35 Gm Tube) 0 gm TOP BID PRN PRN Reason: Wound Care Last Admin: 12/12/20 08:12 Dose: 1 applic Documented by: Dextrose/Water (50% Dextrose In Water 50 Ml Syringe) 50 ml IV Q15M PRN PRN Reason: Hypoglycemia Diphenhydramine HCl (Diphenhydramine 50 Mg Cap) 50 mg PO Q6H PRN PRN Reason: Itching Last Admin: 12/13/20 21:58 Dose: 50 mg Documented by: Docusate Sodium (Docusate Sodium 100 Mg Cap) 100 mg PO BID [facility] Last Admin: 12/24/20 09:12 Dose: 100 mg Documented by: Duloxetine HCl (Duloxetine 30 Mg Cap) 60 mg PO DAILY [facility] Last Admin: 12/24/20 09:13 Dose: 60 mg Documented by: Emollient Ointment (Isopropyl Myristate/Mineral Oil/Water Lotion 240 Ml Bottle) 0 ml TOP Q4H PRN PRN Reason: Dry skin Last Admin: 12/11/20 20:32 Dose: 1 applic Documented by: Enoxaparin Sodium (Enoxaparin 40 Mg/0.4 Ml Syringe) 40 mg SUBCUT DAILY [facility] Last Admin: 12/24/20 09:14 Dose: 40 mg Documented by: Ferrous Sulfate (Ferrous Sulfate 325 Mg Tab) 325 mg PO BIDMEALS [facility] Last Admin: 12/24/20 09:12 Dose: 325 mg Documented by: Gabapentin (Gabapentin 300 Mg Cap) 300 mg PO TID [facility] Last Admin: 12/24/20 09:18 Dose: 300 mg Documented by: Glucagon (Glucagon,Human Recombinant 1 Mg Vial) 1 mg IM Q15M PRN PRN Reason: Hypoglycemia Hydralazine HCl (Hydralazine 25 Mg Tab) 75 mg PO Q8HR [facility] Last Admin: 12/24/20 05:44 Dose: 75 mg Documented by: Vancomycin HCl 1 gm/ Sodium (Chloride) 250 mls @ 166.667 mls/hr IV Q12H [facility] Last Admin: 12/24/20 09:48 Dose: 166.667 mls/hr Documented by: Meropenem 1 gm/ Sodium (Chloride) 100 mls @ 200 mls/hr IV Q8HR [facility] Last Infusion: 12/24/20 06:08 Dose: Infused Documented by: Levothyroxine Sodium (Levothyroxine 100 Mcg Tab) 100 mcg PO 0600 [facility] Last Admin: 12/24/20 05:44 Dose: 100 mcg Documented by: Metoprolol Succinate (Metoprolol Succinate 50 Mg Tab.Er) 50 mg PO DAILY [facility] Last Admin: 12/24/20 09:18 Dose: 50 mg Documented by: Betamethasone Dipropionate ( Augmented) 0.05% Cream 0 each TOP BID [facility] Last Admin: 12/23/20 22:25 Dose: Not Given Documented by: Nystatin (Nystatin Topical Powder 30 Gm Bottle) 0 gm TOP BID [facility] Last Admin: 12/23/20 22:27 Dose: 1 applic Documented by: Oxycodone HCl (Oxycodone 5 Mg Tab) 10 mg PO Q8H PRN PRN Reason: Pain (severe 7-10) Last Admin: 12/24/20 04:03 Dose: 10 mg Documented by: Oxycodone HCl (Oxycodone 5 Mg Tab) 5 mg PO Q8H PRN PRN Reason: Pain (moderate 4-6) Sodium Chloride (Sodium Chloride 0.9% 10 Ml Syringe) 10 ml FLUSH ASDIRECTED PRN PRN Reason: IV Use Last Admin: 12/24/20 09:48 Dose: 10 ml Documented by: Vancomycin HCl (Pharmacy To Dose - Vancomycin) 1 dose .XX ASDIRECTED [facility] Discontinued Medications Alteplase, Recombinant (Alteplase 2 Mg Vial) 2 mg IVPUSH ONETIME ONE Stop: 12/02/20 15:03 Last Admin: 12/02/20 22:56 Dose: Not Given Documented by: Artificial Tears (Carboxymethylcellulose Sodium 1% Ophth Gel 0.4 Ml Ud) 1 each EYEBOTH TID PRN PRN Reason: Dry Eyes Last Admin: 11/27/20 23:17 Dose: 1 each Documented by: Atorvastatin Calcium (Atorvastatin 20 Mg Tab) 40 mg PO DAILY [facility] Last Admin: 11/28/20 08:17 Dose: 40 mg Documented by: Bacitracin (Bacitracin Oint 28.35 Gm Tube) 0 gm TOP TID [facility] Betamethasone Dipropionate (Betamethasone Dipropionate 0.05% Crm 15 Gm Tube) 0 gm TOP TID [facility] Last Admin: 12/10/20 13:12 Dose: 1 applic Documented by: Betamethasone Dipropionate (Betamethasone Dipropionate 0.05% Crm 15 Gm Tube) 0 gm TOP BID [facility] Last Admin: 12/14/20 10:23 Dose: Not Given Documented by: Hydralazine HCl (Hydralazine 25 Mg Tab) 50 mg PO Q8HR [facility] Last Admin: 12/07/20 05:46 Dose: 50 mg Documented by: Hydralazine HCl (Hydralazine 25 Mg Tab) 75 mg PO Q8HR [facility] Last Admin: 12/07/20 12:20 Dose: Not Given Documented by: Cefepime HCl 2 gm/ Sodium (Chloride) 50 mls @ 100 mls/hr IV Q8HR [facility] Last Admin: 12/13/20 05:59 Dose: 100 mls/hr Documented by: Vancomycin HCl 1.25 gm/ Sodium (Chloride) 250 mls @ 167 mls/hr IV BID [facility] Last Admin: 11/16/20 22:35 Dose: Not Given Documented by: Vancomycin HCl 1.5 gm/ Premix 300 mls @ 200 mls/hr IV Q12H [facility] Last Admin: 11/18/20 11:48 Dose: Not Given Documented by: Sterile Water (Sterile Water For Injection) Confirm Administered Dose 20 mls @ as directed .ROUTE .STK-MED ONE Stop: 12/14/20 10:58 Last Admin: 12/14/20 11:33 Dose: Not Given Documented by: Sterile Water (Sterile Water For Injection) Confirm Administered Dose 20 mls @ as directed .ROUTE .STK-MED ONE Stop: 12/14/20 23:25 Last Admin: 12/15/20 00:31 Dose: Not Given Documented by: Insulin Human Lispro (Insulin Lispro 100 Units/Ml 3 Ml Vial) 0 unit SUBCUT WITHMEALSANDBED [facility]; Protocol Last Admin: 11/27/20 12:23 Dose: Not Given Documented by: Insulin Human Lispro (Insulin Lispro 100 Units/Ml 3 Ml Vial) 0 unit SUBCUT WITHMEALSANDBED [facility]; Protocol Oxycodone HCl (Oxycodone 5 Mg Tab) 5 mg PO Q6HR PRN PRN Reason: Pain (moderate 4-6) Last Admin: 12/02/20 12:02 Dose: 5 mg Documented by: Oxycodone HCl (Oxycodone 5 Mg Tab) 10 mg PO Q6HR PRN PRN Reason: Pain (severe 7-10) Last Admin: 12/05/20 00:44 Dose: 10 mg Documented by: - Exam General: Reports: Alert, Oriented Neck: Reports: Supple Lungs: Reports: Clear to Auscultation, Normal Respiratory Effort Cardiovascular: Reports: Regular Rate, Murmurs GI/Abdominal Exam: Normal Bowel Sounds, Soft, Non-Tender, No Distention Extremities: Normal Inspection, No Pedal Edema Skin: Reports: Warm, Other (Tattoos) Neurological: Reports: No New Focal Deficit *Q Meaningful Use (DIS) - VTE *Q VTE Anticoagulation Contraindications: Medical/Procedure Contrai
[2020-12-24] MEDS: Nystatin Topical Powder 30 GM Bottle TOP SCH (13:54)
[2020-12-24] MEDS: BETAMETHASONE DIPROPIONATE 0.05% TOP SCH (13:54)
== END 2020-12-24 13:15 | disposition home or self-care (01) | DRG 316 ==
LOC: DL.MS 16:42 → EEVIPCON 16:42
PROVIDERS: ADMIT Internal Medicine; ATTEND Hospitalist
DX: T82.7XXA Infection and inflammatory reaction due to other cardiac and vascular devices, implants and grafts, initial encounter (principal); Y83.8 Other surgical procedures as the cause of abnormal reaction of the patient, or of later complication, without mention of misadventure at the time of the procedure; N18.30 Chronic kidney disease, stage 3 unspecified; L27.1 Localized skin eruption due to drugs and medicaments taken internally; T36.1X5A Adverse effect of cephalosporins and other beta-lactam antibiotics, initial encounter; I25.10 Atherosclerotic heart disease of native coronary artery without angina pectoris; E11.22 Type 2 diabetes mellitus with diabetic chronic kidney disease; H54.7 Unspecified visual loss; E78.00 Pure hypercholesterolemia, unspecified; G89.29 Other chronic pain; M54.9 Dorsalgia, unspecified; M19.90 Unspecified osteoarthritis, unspecified site; F41.9 Anxiety disorder, unspecified; F32.9 Major depressive disorder, single episode, unspecified; F43.10 Post-traumatic stress disorder, unspecified; E66.9 Obesity, unspecified; D50.9 Iron deficiency anemia, unspecified; I12.9 Hypertensive chronic kidney disease with stage 1 through stage 4 chronic kidney disease, or unspecified chronic kidney disease; D69.6 Thrombocytopenia, unspecified; K76.0 Fatty (change of) liver, not elsewhere classified; E78.5 Hyperlipidemia, unspecified; E03.9 Hypothyroidism, unspecified; K59.00 Constipation, unspecified; E11.42 Type 2 diabetes mellitus with diabetic polyneuropathy; Z86.73 Personal history of transient ischemic attack (TIA), and cerebral infarction without residual deficits; Z87.01 Personal history of pneumonia (recurrent); Z79.82 Long term (current) use of aspirin; Z79.890 Hormone replacement therapy; Z79.899 Other long term (current) drug therapy; Z88.0 Allergy status to penicillin; Z88.1 Allergy status to other antibiotic agents; Z88.8 Allergy status to other drugs, medicaments and biological substances; I25.2 Old myocardial infarction; Z95.5 Presence of coronary angioplasty implant and graft; Z90.49 Acquired absence of other specified parts of digestive tract; Z87.891 Personal history of nicotine dependence; Z90.5 Acquired absence of kidney; Z68.35 Body mass index [BMI] 35.0-35.9, adult
CPT/HCPCS: 36415; 71046; 76705; 80053; 80074; 80076; 80202; 82272; 82565; 82728; 82962; 83540; 83550; 83690; 83735; 85025; 85610; 85651; 86140; A9270-GY; J0692; J1650; J1815-GY; J2185; J2997; J3370; J7050; Q0163

== ENCOUNTER 2021-03-19 08:10 | Emergency (ER) | payer MEDICARE, MEDICAID ==
[2021-03-19 08:28] VITALS: BP 160/80; PULSE 88
[2021-03-19] MEDS ORDERED: Oxymetazoline 0.05% Nasal Spray 30 ML Bottle NAS ONE (08:32)
--- NOTE | 2021-03-19 08:44 | EDM.PDOC ---
ED HPI GENERAL MEDICAL PROBLEM - General Chief Complaint: ENT Problem Stated Complaint: AMBULANCE Time Seen by Provider: 03/19/21 08:25 Source of Information: Reports: Correction Records History Limitations: Reports: No Limitations - History of Present Illness INITIAL COMMENTS - FREE TEXT/NARRATIVE: This 65 yo male patient reports to the ED due to a nose bleed (left nare). The patient reports the bleeding started this morning at about 0600. The patient has attempted to hold pressure to the nose. The patient denies any history of nose bleeding or trauma. Onset: Today Onset Date: 03/19/21 Onset Time: 06:00 Duration: Constant Location: Reports: Face (left nare) Quality: Reports: Other Severity: Moderate Improves with: Reports: None Worsens with: Reports: None Context: Reports: Other Associated Symptoms: Reports: No Other Symptoms - Related Data Allergies Allergy/AdvReac Type Severity Reaction Status Date / Time amoxicillin [Amoxicillin] Allergy Hives Verified 11/16/20 17:08 ampicillin Allergy Other Verified 11/16/20 17:08 metronidazole [From Flagyl] Allergy Hives Verified 11/16/20 17:08 Metronidazole HCl Allergy Hives Verified 11/16/20 17:08 [From Flagyl] Penicillins Allergy Other Verified 11/16/20 17:08 Home Meds: Home Meds DULoxetine [Cymbalta] 60 mg PO DAILY 09/13/13 [History] Metoprolol Succinate [Toprol XL] 50 mg PO DAILY 09/13/13 [History] Levothyroxine [Synthroid] 100 mcg PO DAILY 07/18/18 [History] atorvaSTATin [Lipitor] 40 mg PO DAILY 07/18/18 [History] Aspirin 81 mg PO DAILY 11/16/20 [History] Carboxymethylcellulose Sodium [Refresh Tears 0.5%] 1 drop EYEBOTH TID PRN 11/16/20 [History] Gabapentin [Neurontin] 300 mg PO TID 11/16/20 [History] Acetaminophen [Tylenol] 650 mg PO Q4H PRN #60 tablet 12/24/20 [Rx] hydrALAZINE [Apresoline] 75 mg PO Q8HR #90 tablet 12/24/20 [Rx] oxyCODONE 5 mg PO Q6HR PRN #10 12/24/20 [Rx] Past Medical History - Past Health History Medical/Surgical History: Denies Medical/Surgical History HEENT History: Reports: Impaired Vision Other HEENT History: wears glasses Cardiovascular History: Reports: Angina, Arrhythmia, Automatic Implantable Cardioverter Defibrillators, CAD, High Cholesterol, Hypertension, [place], Pacemaker, Stents Respiratory History: Reports: Intubation, Previous Gastrointestinal History: Reports: Cholelithiasis, Hepatitis Genitourinary History: Reports: Chronic Renal Insuffiency, Other (See Below) Other Genitourinary History: questionable kidney failure. Only 1 kidney, gave the other one away. Musculoskeletal History: Reports: Back Pain, Chronic, Fracture, Osteoarthritis Other Musculoskeletal History: Rt. shoulder reconstructed. Neurological History: Reports: CVA Psychiatric History: Reports: Anxiety, Depression, Panic Attack, PTSD Endocrine/Metabolic History: Reports: Diabetes, Type II, Obesity/BMI 30+ Hematologic History: Reports: None Immunologic History: Reports: None Oncologic (Cancer) History: Reports: None Dermatologic History: Reports: Cellulitis Other Dermatologic History: severe rash to the legs, - Infectious Disease History Infectious Disease History: Reports: Hepatitis C - Past Surgical History Cardiovascular Surgical History: Reports: AICD, Pacer, Other (See Below) Other Cardiovascular Surgeries/Procedures: AICD/pacer removed 11/09, using a life vest now GI Surgical History: Reports: Appendectomy, Cholecystectomy Male Surgical History: Reports: Nephrectomy Social & Family History - Family History Family Medical History: Unobtainable Cardiac: Reports: Angina, CAD, Heart Failure, High Cholesterol, Hypertension, [place] GI: Reports: Cholelithiasis : Reports: Dialysis Neurological: Reports: CVA Endocrine/Metabolic: Reports: Diabetes, type II, Obesity/MBI 30+ - Tobacco Use Tobacco Use Status *Q: Never Tobacco User - Caffeine Use Caffeine Use: Reports: None - Recreational Drug Use Recreational Drug Use: No - Living Situation & Occupation Living situation: Reports: , with Family Occupation: Retired ED ROS ENT - Review of Systems Review Of Systems: Comprehensive ROS is negative, except as noted in HPI. ED EXAM, ENT - Physical Exam Exam: See Below Exam Limited By: No Limitations General Appearance: Alert, WD/WN, Moderate Distress Eye Exam: Bilateral Eye: EOMI, Normal Inspection, PERRL Ears: Normal External Exam, Normal Canal, Hearing Grossly Normal, Normal TMs Nose: Active Bleeding (left nare) Mouth/Throat: Normal Inspection, Normal Gums, Normal Lips, Normal Oropharynx, Normal Teeth Head: Atraumatic, Normocephalic Neck: Normal Inspection, Supple, Non-Tender, Full Range of Motion Respiratory/Chest: No Respiratory Distress, Lungs Clear, Normal Breath Sounds, No Accessory Muscle Use, Chest Non-Tender Cardiovascular: Normal Peripheral Pulses, Regular Rate, Rhythm, No Edema, No Gallop, No JVD, No Murmur, No Rub GI/Abdominal: Normal Bowel Sounds, Soft, Non-Tender, No Organomegaly, No Distention, No Abnormal Bruit, No Mass (Male) Exam: Deferred Rectal (Males) Exam: Deferred Back: Normal Inspection, Full Range of Motion Extremities: Normal Inspection, Normal Range of Motion, Non-Tender, No Pedal Edema, Normal Capillary Refill Neurological: Alert, Oriented, CN II-XII Intact, Normal Cognition, Normal Gait, Normal Reflexes, No Motor/Sensory Deficits Psychiatric: Normal Affect, Normal Mood Skin: Warm, Dry, Intact, Normal Color, No Rash Lymphatic: No Adenopathy ED ENT PROCEDURES - Epistaxis Procedure Indication: Epistaxis, Uncontrolled Recent anticoagulants/antiplatlets: Yes Uncontrolled HTN: No Recent septal/nasal surgery: No Site of bleeding: Left Nare, Posterior Clearing of clots: Patient Blew Nose Ice pack to area: Yes Posterior packing: Long Inflatable Nasal Tampon Complications: Yes Complication Description: The patient is on Plavix and aspirin, so TXA was applied to the Rhino Rocket prior to insertion. Course - Vital Signs Last Recorded V/S: Last Vital Signs Temp 97.2 F 03/19/21 08:26 Pulse 88 03/19/21 08:26 Resp 16 03/19/21 08:26 BP 160/80 H 03/19/21 08:26 Pulse Ox 100 03/19/21 08:26 - Orders/Labs/Meds Meds: Medications Discontinued Medications Generic Name Dose Route Start Last Admin Trade Name Freq PRN Reason Stop Dose Admin Oxymetazoline HCl 1 ml 03/19/21 08:32 03/19/21 09:17 Oxymetazoline 0.05% Nasal Jones 30 Ml Bottle FELIPE 03/19/21 08:33 1 ml ONETIME ONE Administration Tranexamic Acid 500 mg 03/19/21 09:07 03/19/21 09:17 Tranexamic Acid 1,000 Mg/10 Ml Amp TOP 03/19/21 09:08 500 mg ONETIME ONE Administration - Re-Assessments/Exams Free Text/Narrative Re-Assessment/Exam: 03/19/21 09:16 Prior to inserting rhino rocket, pressure was applied to the nose, ice was applied to the area and Afrin was sprayed with pressure, but the patient continued to have a nose bleed. 03/19/21 09:53 Reexamination of the patient revealed no further bleeding and no blood in the posterior pharynx. The patient reports some discomfort, but states it is "not that bad." Departure - Departure Time of Disposition: 09:54 Disposition: Home, Self-Care 01 Condition: Fair Clinical Impression: Epistaxis not due to trauma - Discharge Information *PRESCRIPTION DRUG MONITORING PROGRAM REVIEWED*: Not Applicable *COPY OF PRESCRIPTION DRUG MONITORING REPORT IN PATIENT TIFFANIE: Not Applicable Instructions: Nosebleed, [id number] Forms: ED Department Discharge Care Plan Goals: The patient was advised of the examination and lab results during the visit. A Rhino-rocket was placed in the patients left nare with TXA to stop the bleeding. The patient was advised to keep the device in place for the next 48 hours prior to having the device removed. The patient was encouraged to call his primary care facility to make an appointment for removal of the device. If the patient has any additional symptoms or concerns, the patient should either return to the emergency department or visit his primary care facility. Sepsis Event Note (ED) - Evaluation Sepsis Screening Result: No Definite Risk - Focused Exam Vital Signs: Vital Signs Temp Pulse Resp BP Pulse Ox 03/19/21 08:26 97.2 F 88 16 160/80 H 100
== END 2021-03-19 10:30 | disposition home or self-care (01) ==
LOC: DL.ED 08:10
DX: R04.0 Epistaxis (principal); I25.10 Atherosclerotic heart disease of native coronary artery without angina pectoris; E78.00 Pure hypercholesterolemia, unspecified; I25.2 Old myocardial infarction; I12.9 Hypertensive chronic kidney disease with stage 1 through stage 4 chronic kidney disease, or unspecified chronic kidney disease; E11.22 Type 2 diabetes mellitus with diabetic chronic kidney disease; N18.9 Chronic kidney disease, unspecified; M19.90 Unspecified osteoarthritis, unspecified site; E11.9 Type 2 diabetes mellitus without complications; E66.9 Obesity, unspecified; Z68.36 Body mass index [BMI] 36.0-36.9, adult; Z88.0 Allergy status to penicillin; Z88.1 Allergy status to other antibiotic agents; Z79.82 Long term (current) use of aspirin; Z79.899 Other long term (current) drug therapy
CPT/HCPCS: 30903; 30905; 99283; 99283-25; A9270-GY

== ENCOUNTER 2021-03-22 12:43 | Emergency (ER) | payer MEDICARE, MEDICAID ==
[2021-03-22] MEDS ORDERED: Acetaminophen 325 MG Tab PO ONE (15:06)
[2021-03-22] MEDS ORDERED: Clindamycin Phosphate 900 MG/6 ML SDV IM ONE (16:20)
[2021-03-22 16:44] VITALS: BP 109/73
--- NOTE | 2021-03-22 16:44 | EDM.PDOC ---
Scribed by Elvira Baldwin 03/22/21 1630 for Daphne Gastelum NP ED HPI GENERAL MEDICAL PROBLEM - General Chief Complaint: ENT Problem Stated Complaint: RERURN / NOSE STILL BLEEDING Time Seen by Provider: 03/22/21 14:00 Source of Information: Reports: Patient, RN, RN Notes Reviewed History Limitations: Reports: No Limitations - History of Present Illness INITIAL COMMENTS - FREE TEXT/NARRATIVE: Patient is a 65-year-old male who presents to ER with complaint of nosebleed. Patient states he was seen in the ER on Thursday and a Rhino-Rocket was placed. States he has been having a headache since then. He has been using Ibuprofen for pain. He has been holding Plavix since Thursday. He has a history of cardiac infection and pacemaker. Onset: Gradual Location: Reports: Other (nose) Severity: Moderate Improves with: Reports: None Worsens with: Reports: None Associated Symptoms: Reports: No Other Symptoms - Related Data Allergies Allergy/AdvReac Type Severity Reaction Status Date / Time amoxicillin [Amoxicillin] Allergy Hives Verified 03/22/21 13:20 ampicillin Allergy Other Verified 03/22/21 13:20 metronidazole [From Flagyl] Allergy Hives Verified 03/22/21 13:20 Metronidazole HCl Allergy Hives Verified 03/22/21 13:20 [From Flagyl] Penicillins Allergy Other Verified 03/22/21 13:20 Home Meds: Home Meds DULoxetine [Cymbalta] 60 mg PO DAILY 09/13/13 [History] Metoprolol Succinate [Toprol XL] 50 mg PO DAILY 09/13/13 [History] Levothyroxine [Synthroid] 100 mcg PO DAILY 07/18/18 [History] atorvaSTATin [Lipitor] 40 mg PO DAILY 07/18/18 [History] Aspirin 81 mg PO DAILY 11/16/20 [History] Carboxymethylcellulose Sodium [Refresh Tears 0.5%] 1 drop EYEBOTH TID PRN 11/16/20 [History] Gabapentin [Neurontin] 300 mg PO TID 11/16/20 [History] Acetaminophen [Tylenol] 650 mg PO Q4H PRN #60 tablet 12/24/20 [Rx] hydrALAZINE [Apresoline] 75 mg PO Q8HR #90 tablet 12/24/20 [Rx] oxyCODONE 5 mg PO Q6HR PRN #10 12/24/20 [Rx] Past Medical History - Past Health History Medical/Surgical History: Denies Medical/Surgical History HEENT History: Reports: Impaired Vision Other HEENT History: wears glasses Cardiovascular History: Reports: Angina, Arrhythmia, Automatic Implantable Cardioverter Defibrillators, CAD, High Cholesterol, Hypertension, DC, Pacemaker, Stents Respiratory History: Reports: Intubation, Previous Gastrointestinal History: Reports: Cholelithiasis, Hepatitis Genitourinary History: Reports: Chronic Renal Insuffiency, Other (See Below) Other Genitourinary History: questionable kidney failure. Only 1 kidney, gave the other one away. Musculoskeletal History: Reports: Back Pain, Chronic, Fracture, Osteoarthritis Other Musculoskeletal History: Rt. shoulder reconstructed. Neurological History: Reports: CVA Psychiatric History: Reports: Anxiety, Depression, Panic Attack, PTSD Endocrine/Metabolic History: Reports: Diabetes, Type II, Obesity/BMI 30+ Hematologic History: Reports: None Immunologic History: Reports: None Oncologic (Cancer) History: Reports: None Dermatologic History: Reports: Cellulitis Other Dermatologic History: severe rash to the legs, - Infectious Disease History Infectious Disease History: Reports: Hepatitis C - Past Surgical History Cardiovascular Surgical History: Reports: AICD, Pacer, Other (See Below) Other Cardiovascular Surgeries/Procedures: AICD/pacer removed 11/09, using a life vest now GI Surgical History: Reports: Appendectomy, Cholecystectomy Male Surgical History: Reports: Nephrectomy Social & Family History - Family History Family Medical History: Unobtainable Cardiac: Reports: Angina, CAD, Heart Failure, High Cholesterol, Hypertension, DC GI: Reports: Cholelithiasis : Reports: Dialysis Neurological: Reports: CVA Endocrine/Metabolic: Reports: Diabetes, type II, Obesity/MBI 30+ - Tobacco Use Tobacco Use Status *Q: Current Some Day Tobacco User Years of Tobacco use: 10 Packs/Tins Daily: 0.1 - Caffeine Use Caffeine Use: Reports: Coffee, Energy Drinks, Soda, Tea, Other - Recreational Drug Use Recreational Drug Use: No - Living Situation & Occupation Living situation: Reports: , with Family Occupation: Retired ED ROS ENT - Review of Systems Review Of Systems: Comprehensive ROS is negative, except as noted in HPI. ED EXAM, ENT - Physical Exam Exam: See Below Exam Limited By: No Limitations General Appearance: Alert Eye Exam: Bilateral Eye: EOMI, Normal Inspection, PERRL Ears: Normal External Exam, Normal Canal, Hearing Grossly Normal, Normal TMs Nose: Other (left nare Rhino-Rocket) Mouth/Throat: Normal Inspection, Normal Gums, Normal Lips, Normal Oropharynx, Normal Teeth Head: Atraumatic, Normocephalic Neck: Normal Inspection, Supple, Non-Tender, Full Range of Motion Respiratory/Chest: No Respiratory Distress, Lungs Clear, Normal Breath Sounds, No Accessory Muscle Use, Chest Non-Tender Cardiovascular: Normal Peripheral Pulses, Regular Rate, Rhythm, No Edema, No Gallop, No JVD, No Murmur, No Rub GI/Abdominal: Normal Bowel Sounds, Soft, Non-Tender, No Organomegaly, No Distention, No Abnormal Bruit, No Mass (Male) Exam: Deferred Rectal (Males) Exam: Deferred Extremities: Normal Inspection, Normal Range of Motion, Non-Tender, No Pedal Edema, Normal Capillary Refill Neurological: Alert, Oriented, CN II-XII Intact, Normal Cognition, Normal Gait, Normal Reflexes, No Motor/Sensory Deficits Psychiatric: Normal Affect, Normal Mood Skin: Warm, Dry, Intact, Normal Color, No Rash Lymphatic: No Adenopathy ED ENT PROCEDURES - Additional/Other Procedure(s) Other (Free Text) Procedure(s): Nasal rocket removed from left nare. Tampon deflated with 10 cc syringe, removed without difficulty. Large amount of green thick drainage present, minimal blood. No active bleeding after tampon removed. Patient treated with antibiotics for impending/prevention of sinusitis. Course - Vital Signs Last Recorded V/S: Last Vital Signs Temp 96.8 F L 03/22/21 13:18 Pulse 61 03/22/21 16:43 Resp 18 03/22/21 16:43 BP 109/73 03/22/21 16:43 Pulse Ox 99 03/22/21 16:43 - Orders/Labs/Meds Meds: Medications Discontinued Medications Generic Name Dose Route Start Last Admin Trade Name Freq PRN Reason Stop Dose Admin Acetaminophen 650 mg 03/22/21 15:06 03/22/21 15:42 Acetaminophen 325 Mg Tab PO 03/22/21 15:07 650 mg NOW ONE Administration Clindamycin Phosphate 900 mg 03/22/21 16:20 Clindamycin Phosphate 900 Mg/6 Ml Sdv IM 03/22/21 16:21 ONETIME ONE Departure - Departure Time of Disposition: 16:28 Disposition: Home, Self-Care 01 Condition: Good Clinical Impression: Epistaxis Foreign body in nose Qualifiers: Encounter type: subsequent encounter Qualified Code(s): T17.1XXD - Foreign body in nostril, subsequent encounter - Discharge Information *PRESCRIPTION DRUG MONITORING PROGRAM REVIEWED*: No *COPY OF PRESCRIPTION DRUG MONITORING REPORT IN PATIENT TIFFANIE: No Instructions: Nosebleed, [id number] Forms: ED Department Discharge Additional Instructions: Return to ER with any further problems Follow-up with your primary care provider as well as your supervisor home restoration service regarding restarting your Plavix Do not blow your nose, dab lightly Rx: Clindamycin 300 mg orally 3 times daily for 10 days Sepsis Event Note (ED) - Evaluation Sepsis Screening Result: No Definite Risk - Focused Exam Vital Signs: Vital Signs Temp Pulse Resp BP Pulse Ox 03/22/21 16:43 61 18 109/73 99 03/22/21 13:18 96.8 F L 83 18 126/80 100 I have read and agree with the documentation that has been completed regarding this visit. By signing this record, I attest that the documentation was completed in my physical presence and is an accurate record of the encounter.
[2021-03-22 16:45] VITALS: PULSE 60
== END 2021-03-22 17:08 | disposition home or self-care (01) ==
LOC: DL.ED 12:43
DX: R04.0 Epistaxis (principal); T17.1XXD Foreign body in nostril, subsequent encounter; I25.119 Atherosclerotic heart disease of native coronary artery with unspecified angina pectoris; E78.00 Pure hypercholesterolemia, unspecified; I25.2 Old myocardial infarction; I12.9 Hypertensive chronic kidney disease with stage 1 through stage 4 chronic kidney disease, or unspecified chronic kidney disease; E11.22 Type 2 diabetes mellitus with diabetic chronic kidney disease; N18.9 Chronic kidney disease, unspecified; M19.90 Unspecified osteoarthritis, unspecified site; E66.9 Obesity, unspecified; Z72.0 Tobacco use; Z95.0 Presence of cardiac pacemaker; Z88.0 Allergy status to penicillin; Z88.1 Allergy status to other antibiotic agents; Z79.82 Long term (current) use of aspirin; Z79.899 Other long term (current) drug therapy
CPT/HCPCS: 96372; 99283; A9270; J3490

== ENCOUNTER 2021-05-29 21:50 | Emergency (ER) | payer MEDICARE, MEDICAID ==
[2021-05-29 22:09] VITALS: BP 132/79; PULSE 67
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
[2021-05-29 22:41] LABS: ANION GAP 13.3 mEq/L (7-13); CHLORIDE,CL 104 mmol/L (98-107); SODIUM,NA 138 mmol/L (136-145)
[2021-05-29] MEDS ORDERED: Sodium Chloride 0.9% 1,000 ML IV ONE (23:14)
[2021-05-29] MEDS ORDERED: Heparin Sodium 5,000 Units/ML Vial IVPUSH ONE (23:14)
[2021-05-29] MEDS ORDERED: Heparin Sodium/0.45% NaCl 25,000 UNITS/500 ML BAG IV SCH (23:15)
--- NOTE | 2021-05-29 23:28 | CR ---
PROCEDURE INFORMATION: Exam: XR Chest Exam date and time: 05/29/2021 10:16 PM Age: 65 years old Clinical indication: Pain; Left-sided; Additional info: Chest pain TECHNIQUE: Imaging protocol: XR of the chest. Views: 1 view. COMPARISON: CR Chest 2V 11/22/2020 1:00 PM FINDINGS: Tubes, catheters and devices: Right chest dual lead cardiac conduction device in place, new from prior. Lungs: Unremarkable. No consolidation. Pleural spaces: Unremarkable. No pleural effusion. No pneumothorax. Heart/Mediastinum: Heart size is normal. Mildly tortuous, atherosclerotic thoracic aorta. Bones/joints: No evidence of acute osseous abnormality. IMPRESSION: No radiographically apparent acute abnormality in the chest.
== END 2021-05-30 03:00 | disposition home or self-care (01) ==
LOC: DL.ED 21:50
DX: R07.89 Other chest pain (principal); R74.8 Abnormal levels of other serum enzymes; R79.89 Other specified abnormal findings of blood chemistry; I45.10 Unspecified right bundle-branch block; I25.119 Atherosclerotic heart disease of native coronary artery with unspecified angina pectoris; E78.00 Pure hypercholesterolemia, unspecified; I25.2 Old myocardial infarction; I12.9 Hypertensive chronic kidney disease with stage 1 through stage 4 chronic kidney disease, or unspecified chronic kidney disease; E11.22 Type 2 diabetes mellitus with diabetic chronic kidney disease; N18.9 Chronic kidney disease, unspecified; M19.90 Unspecified osteoarthritis, unspecified site; E66.9 Obesity, unspecified; Z68.35 Body mass index [BMI] 35.0-35.9, adult; Z95.0 Presence of cardiac pacemaker; Z88.0 Allergy status to penicillin; Z88.1 Allergy status to other antibiotic agents; Z79.82 Long term (current) use of aspirin; Z79.899 Other long term (current) drug therapy
CPT/HCPCS: 36415; 71045; 80053; 82150; 83605; 83690; 83880; 84484; 85025; 86140; 93005; 96365; 96366; 99285; J1644; J7030

== ENCOUNTER 2021-06-18 17:38 | Emergency (ER) | payer MEDICARE, MEDICAID ==
[2021-06-18 19:01] VITALS: BP 149/86; PULSE 75
[2021-06-18] MEDS ORDERED: Tetracaine HCl/PF 0.5% 4 ML Bottle EYELF ONE (19:26)
[2021-06-18] MEDS ORDERED: Fluorescein 1 MG Ophth Strip EYELF ONE (19:27)
--- NOTE | 2021-06-18 19:53 | EDM.PDOC ---
ED HPI GENERAL MEDICAL PROBLEM - General Chief Complaint: Eye Problems Stated Complaint: LEFT EYE SOMETHING IN IT Time Seen by Provider: 06/18/21 19:47 Source of Information: Reports: Patient History Limitations: Reports: No Limitations - History of Present Illness INITIAL COMMENTS - FREE TEXT/NARRATIVE: 65 y/o M c/o feeling of foreign body in left eye. Pt was raking adn sweeping leaves in his yard when the wind picked up and blew something in his eye. Pt tried to flush his eyes out wth water but continued to feel like something was in his left eye. He reports normal vision. No other complaints. Treatments [employer]ENT: Reports: Other (see below) Other Treatments [employer]ENT: eye drops left eye Pain Score (Numeric/FACES): 7 - Related Data Allergies Allergy/AdvReac Type Severity Reaction Status Date / Time amoxicillin [Amoxicillin] Allergy Hives Verified 06/18/21 19:01 ampicillin Allergy Other Verified 06/18/21 19:01 metronidazole [From Flagyl] Allergy Hives Verified 06/18/21 19:01 Metronidazole HCl Allergy Hives Verified 06/18/21 19:01 [From Flagyl] Penicillins Allergy Other Verified 06/18/21 19:01 Home Meds: Home Meds DULoxetine [Cymbalta] 60 mg PO DAILY 09/13/13 [History] Metoprolol Succinate [Toprol XL] 50 mg PO DAILY 09/13/13 [History] Levothyroxine [Synthroid] 100 mcg PO DAILY 07/18/18 [History] atorvaSTATin [Lipitor] 40 mg PO DAILY 07/18/18 [History] Aspirin 81 mg PO DAILY 11/16/20 [History] Carboxymethylcellulose Sodium [Refresh Tears 0.5%] 1 drop EYEBOTH TID PRN 11/16/20 [History] Gabapentin [Neurontin] 300 mg PO TID 11/16/20 [History] Acetaminophen [Tylenol] 650 mg PO Q4H PRN #60 tablet 12/24/20 [Rx] hydrALAZINE [Apresoline] 75 mg PO Q8HR #90 tablet 12/24/20 [Rx] oxyCODONE 5 mg PO Q6HR PRN #10 12/24/20 [Rx] Past Medical History - Past Health History Medical/Surgical History: Denies Medical/Surgical History HEENT History: Reports: Impaired Vision Other HEENT History: wears glasses Cardiovascular History: Reports: Angina, Arrhythmia, Automatic Implantable Cardioverter Defibrillators, CAD, High Cholesterol, Hypertension, RI, Pacemaker, Stents Respiratory History: Reports: Intubation, Previous Gastrointestinal History: Reports: Cholelithiasis, Hepatitis Genitourinary History: Reports: Chronic Renal Insuffiency, Other (See Below) Other Genitourinary History: questionable kidney failure. Only 1 kidney, gave the other one away. Musculoskeletal History: Reports: Back Pain, Chronic, Fracture, Osteoarthritis Other Musculoskeletal History: Rt. shoulder reconstructed. Neurological History: Reports: CVA Psychiatric History: Reports: Anxiety, Depression, Panic Attack, PTSD Endocrine/Metabolic History: Reports: Diabetes, Type II, Obesity/BMI 30+ Hematologic History: Reports: None Immunologic History: Reports: None Oncologic (Cancer) History: Reports: None Dermatologic History: Reports: Cellulitis Other Dermatologic History: severe rash to the legs, - Infectious Disease History Infectious Disease History: Reports: Hepatitis C - Past Surgical History Cardiovascular Surgical History: Reports: AICD, Pacer, Other (See Below) Other Cardiovascular Surgeries/Procedures: AICD/pacer removed 11/09, using a life vest now; paced replaced as of 06/18/21 GI Surgical History: Reports: Appendectomy, Cholecystectomy Male Surgical History: Reports: Nephrectomy Social & Family History - Family History Family Medical History: Unobtainable Cardiac: Reports: Angina, CAD, Heart Failure, High Cholesterol, Hypertension, RI GI: Reports: Cholelithiasis : Reports: Dialysis Neurological: Reports: CVA Endocrine/Metabolic: Reports: Diabetes, type II, Obesity/MBI 30+ - Tobacco Use Tobacco Use Status *Q: Former Tobacco User Used Tobacco, but Quit: Yes Month/Year Tobacco Last Used: December 2020 - Caffeine Use Caffeine Use: Reports: None - Recreational Drug Use Recreational Drug Use: No - Living Situation & Occupation Living situation: Reports: , with Family Occupation: Retired ED ROS GENERAL - Review of Systems Review Of Systems: Comprehensive ROS is negative, except as noted in HPI. ED EXAM GENERAL W FULL EYE - Physical Exam Exam: See Below Exam Limited By: No Limitations General Appearance: Alert, No Apparent Distress Eye Exam: Left Eye: Conjunctival Injection, Bilateral Eye: PERRL Eyelids: Bilateral: Normal Appearance Conjunctiva & Sclera: Bilateral: Normal Appearance Cornea Exam: Left: Corneal Abrasion (small abrasion at the 6 oclcok position) Extraocular Movements: Bilateral: Intact Pupillary Size: Bilateral: 5 mm Pupillary Reaction: Bilateral: Brisk Respiratory/Chest: No Respiratory Distress, Lungs Clear, Normal Breath Sounds, No Accessory Muscle Use, Chest Non-Tender Cardiovascular: Normal Peripheral Pulses Course - Vital Signs Last Recorded V/S: Last Vital Signs Temp 98.5 F 06/18/21 18:56 Pulse 75 06/18/21 18:56 Resp 20 06/18/21 18:56 BP 149/86 H 06/18/21 18:56 Pulse Ox 93 L 06/18/21 18:56 - Orders/Labs/Meds Meds: Medications Discontinued Medications Generic Name Dose Route Start Last Admin Trade Name Denae PRN Reason Stop Dose Admin Fluorescein Sodium 1 mg 06/18/21 19:27 06/18/21 19:40 Fluorescein 1 Mg Ophth Strip EYELF 06/18/21 19:28 1 mg ONETIME ONE Administration Tetracaine HCl 1 ml 06/18/21 19:26 06/18/21 19:40 Tetracaine Hcl/Pf 0.5% 4 Ml Bottle EYELF 06/18/21 19:27 1 ml ASDIRECTED ONE Administration - Re-Assessments/Exams Free Text/Narrative Re-Assessment/Exam: 06/18/21 19:50 pt feels relief in pain after tetracaine. No foreign body noted on exam. Small abrasion at the 6 oclock position L cornea. 06/18/21 20:06 On reassessment the pt has some eczema on sofia palm of his left hand and is requesting a steriod cream. I will provide him an RX for triamcinolone cream 0.5% Departure - Departure Time of Disposition: 19:51 Disposition: Home, Self-Care 01 Condition: Good Clinical Impression: Corneal abrasion - Discharge Information *PRESCRIPTION DRUG MONITORING PROGRAM REVIEWED*: Not Applicable *COPY OF PRESCRIPTION DRUG MONITORING REPORT IN PATIENT TIFFANIE: Not Applicable Instructions: Corneal Abrasion Forms: ED Department Discharge Additional Instructions: Use tylenol as needed for pain. If any new symptoms or concerns develop contact your primary care facility ore return to the ER. Sepsis Event Note (ED) - Evaluation Sepsis Screening Result: No Definite Risk - Focused Exam Vital Signs: Vital Signs Temp Pulse Resp BP Pulse Ox 06/18/21 18:56 98.5 F 75 20 149/86 H 93 L
== END 2021-06-18 20:09 | disposition home or self-care (01) ==
LOC: DL.ED 17:38
DX: S05.02XA Injury of conjunctiva and corneal abrasion without foreign body, left eye, initial encounter (principal); I10 Essential (primary) hypertension; E78.00 Pure hypercholesterolemia, unspecified; I25.2 Old myocardial infarction; I25.10 Atherosclerotic heart disease of native coronary artery without angina pectoris; E66.9 Obesity, unspecified; Z68.41 Body mass index [BMI] 40.0-44.9, adult; Z79.82 Long term (current) use of aspirin; Z79.899 Other long term (current) drug therapy; Z87.891 Personal history of nicotine dependence
CPT/HCPCS: 99283

== ENCOUNTER 2022-03-25 01:03 | Emergency (ER) | payer MEDICARE, MEDICAID ==
[2022-03-25] MEDS ORDERED: Acetaminophen/oxyCODONE 325-5 MG Tab PO ONE ×2 (01:04→01:42)
[2022-03-25 01:34] VITALS: BP 129/90; PULSE 87
[2022-03-25] MEDS ORDERED: Clindamycin in 0.9 % Sod Chlor 600 MG in Premix Bag 1 BAG IV ONE ×2 (01:40)
[2022-03-25 02:26] LABS: ANION GAP 12.6 mEq/L (7-13)
[2022-03-25] MEDS ORDERED: Acetaminophen/oxyCODONE 325-5 MG Tab ONE (02:33)
== END 2022-03-25 02:51 | disposition home or self-care (01) ==
LOC: DL.ED 01:03
DX: K04.7 Periapical abscess without sinus (principal); I25.119 Atherosclerotic heart disease of native coronary artery with unspecified angina pectoris; E78.00 Pure hypercholesterolemia, unspecified; I10 Essential (primary) hypertension; I25.2 Old myocardial infarction; E11.9 Type 2 diabetes mellitus without complications; E66.9 Obesity, unspecified; Z68.36 Body mass index [BMI] 36.0-36.9, adult; Z95.5 Presence of coronary angioplasty implant and graft; Z88.0 Allergy status to penicillin; Z88.1 Allergy status to other antibiotic agents; Z79.82 Long term (current) use of aspirin; Z79.899 Other long term (current) drug therapy; Z86.73 Personal history of transient ischemic attack (TIA), and cerebral infarction without residual deficits
CPT/HCPCS: 36415; 80053; 83605; 85025; 87040; 96365; 99283-25; 99284; A9270-GY; J3490

== ENCOUNTER 2022-06-25 20:39 | Emergency (ER) | payer MEDICARE, MEDICAID ==
[2022-06-25 22:01] VITALS: BP 135/75; PULSE 89
[2022-06-26] MEDS ORDERED: Cephalexin 250 MG/5 ML Susp 200 ML Bottle PO ONE (00:11)
[2022-06-26] MEDS ORDERED: Cephalexin 500 MG Cap PO ONE (00:41)
== END 2022-06-26 00:50 | disposition home or self-care (01) ==
LOC: DL.ED 20:39
DX: L03.116 Cellulitis of left lower limb (principal); J06.9 Acute upper respiratory infection, unspecified; E11.9 Type 2 diabetes mellitus without complications; I10 Essential (primary) hypertension; Z88.0 Allergy status to penicillin; Z88.8 Allergy status to other drugs, medicaments and biological substances; Z79.899 Other long term (current) drug therapy; Z90.49 Acquired absence of other specified parts of digestive tract
CPT/HCPCS: 99283; A9270

== ENCOUNTER 2022-09-13 20:05 | Emergency (ER) | payer MEDICARE, MEDICAID ==
[2022-09-13] MEDS ORDERED: Sodium Chloride 0.9% 10 ML Syringe FLUSH PRN (20:42)
[2022-09-13] MEDS ORDERED: Sodium Chloride 0.9% 1,000 ML IV ONE ×2 (21:10→21:55)
[2022-09-13 21:15] VITALS: BP 136/91; PULSE 64
[2022-09-13 21:27] LABS: ANION GAP 12.7 mEq/L (7-13); CHLORIDE,CL 103 mmol/L (98-107); ESTIMATED GFR 56 mL/min (>=60); SODIUM,NA 139 mmol/L (136-145)
[2022-09-13 22:38] LABS: AMPHETAMINES,URINE NEGATIVE (NEGATIVE); BARBITURATES,URINE NEGATIVE (NEGATIVE); BENZODIAZEPINE,URINE NEGATIVE (NEGATIVE); MDMA (ECSTASY), URINE NEGATIVE (NEGATIVE); METHADONE,URINE NEGATIVE (NEGATIVE); METHAMPHETAMINES,URINE NEGATIVE (NEGATIVE); OPIATES,URINE NEGATIVE (NEGATIVE); OXYCODONE,URINE POSITIVE (NEGATIVE); PHENCYCLIDINE,URINE NEGATIVE (NEGATIVE); TCA,URINE NEGATIVE (NEGATIVE)
[2022-09-13 22:49] LABS: CORONAVIRUS COVID-19 NAA NEGATIVE (NEGATIVE); RESPIRATORY SYNCYTIAL VIR NAA NEGATIVE (NEGATIVE)
== END 2022-09-13 23:29 | disposition home or self-care (01) ==
LOC: DL.ED 20:05
DX: E86.0 Dehydration (principal); I95.1 Orthostatic hypotension; T50.995A Adverse effect of other drugs, medicaments and biological substances, initial encounter; S00.81XA Abrasion of other part of head, initial encounter; I25.10 Atherosclerotic heart disease of native coronary artery without angina pectoris; I25.2 Old myocardial infarction; I12.9 Hypertensive chronic kidney disease with stage 1 through stage 4 chronic kidney disease, or unspecified chronic kidney disease; E11.22 Type 2 diabetes mellitus with diabetic chronic kidney disease; N18.9 Chronic kidney disease, unspecified; M19.90 Unspecified osteoarthritis, unspecified site; E66.9 Obesity, unspecified; Z88.1 Allergy status to other antibiotic agents; Z88.0 Allergy status to penicillin; Z95.0 Presence of cardiac pacemaker; Z79.82 Long term (current) use of aspirin; Z79.899 Other long term (current) drug therapy; Z20.822 Contact with and (suspected) exposure to COVID-19
CPT/HCPCS: 0241U; 36415; 70450; 71250; 80053; 80305; 80307; 81003; 83605; 83735; 84484; 85025; 85610; 86140; 93005; 96360; 99285; J3490; J7030

== ENCOUNTER 2023-02-11 02:25 | Emergency (ER) | payer MEDICARE, MEDICAID ==
[2023-02-11] MEDS ORDERED: ALPRAZolam 0.5 MG Tab PO ONE (02:48)
[2023-02-11] MEDS ORDERED: Ketorolac 30 MG/ML SDV IM ONE (02:49)
[2023-02-11] MEDS ORDERED: Cephalexin 500 MG Cap PO ONE (04:50)
== END 2023-02-11 04:10 | disposition home or self-care (01) ==
LOC: DL.ED 02:25
DX: S40.012A Contusion of left shoulder, initial encounter (principal); S60.212A Contusion of left wrist, initial encounter; S30.1XXA Contusion of abdominal wall, initial encounter; F41.1 Generalized anxiety disorder; Y09 Assault by unspecified means
CPT/HCPCS: 96372; 99283; A9270; J1885

== ENCOUNTER 2023-03-11 04:53 | Emergency (ER) | payer MEDICARE, MEDICAID ==
[2023-03-11] MEDS ORDERED: LORazepam 1 MG Tab PO ONE (05:16)
[2023-03-11] MEDS ORDERED: LORazepam 2 MG/ML SDV IVPUSH ONE (06:51)
[2023-03-11] MEDS ORDERED: Ketorolac 30 MG/ML SDV IVPUSH ONE (07:08)
[2023-03-11 08:04] VITALS: BP 115/81; PULSE 80
== END 2023-03-11 07:57 | disposition home or self-care (01) ==
LOC: DL.ED 04:53
DX: F41.1 Generalized anxiety disorder (principal); F43.0 Acute stress reaction; I25.10 Atherosclerotic heart disease of native coronary artery without angina pectoris; E78.00 Pure hypercholesterolemia, unspecified; E11.22 Type 2 diabetes mellitus with diabetic chronic kidney disease; I12.9 Hypertensive chronic kidney disease with stage 1 through stage 4 chronic kidney disease, or unspecified chronic kidney disease; N18.9 Chronic kidney disease, unspecified; E66.9 Obesity, unspecified; Z95.5 Presence of coronary angioplasty implant and graft; Z88.0 Allergy status to penicillin; Z88.8 Allergy status to other drugs, medicaments and biological substances; Z79.82 Long term (current) use of aspirin; Z79.899 Other long term (current) drug therapy
CPT/HCPCS: 96374; 96375; 99284; A9270; J1885; J2060

== ENCOUNTER 2023-04-22 23:36 | Emergency (ER) | payer MEDICARE, MEDICAID ==
[2023-04-22] MEDS ORDERED: Sodium Chloride 0.9% 10 ML Syringe FLUSH PRN (23:42)
[2023-04-22 23:57] VITALS: BP 151/88; PULSE 83
[2023-04-22 23:58] LABS: BASOPHILS PERCENT AUTO 0.2 % (0.0-1.0); EOSINOPHILS PERCENT AUTO 2.6 % (1.0-3.0); HEMATOCRIT 41.6 % (40.0-54.0); HEMOGLOBIN 13.9 g/dL (14.0-18.0); LYMPHOCYTES PERCENT AUTO 18.5 % (20.5-50.1); MEAN CORPUSCULAR HEMOGLOBIN 30.2 pg (27.0-34.0); MEAN CORPUSCULAR HGB CONC 33.4 g/dL (33.0-35.0); MEAN CORPUSCULAR VOLUME 90.2 fL (80-100); MONOCYTES PERCENT AUTO 8.6 % (2-8); NEUTROPHILS PERCENT AUTO 70.1 % (42.2-75.2); PLATELET COUNT,PLT 124 10^3/uL (150-450); RED BLOOD CELL COUNT 4.61 10^6/uL (4.6-6.2); WHITE BLOOD CELL COUNT,WBC 13.3 10^3/uL (5.0-10.0)
[2023-04-23 00:26] LABS: A/G RATIO 1.2; ALANINE AMINOTRANSFERASE,ALT 21 U/L (16-63); ALKALINE PHOSPHATASE 143 U/L (46-116); ANION GAP 14.4 mEq/L (7-13); ASPARTATE AMNIOTRANSFERASE,AST 22 U/L (15-37); BLOOD UREA NITROGEN,BUN 27 mg/dL (7-18); BUN/CREATININE RATIO 13.2 (No establ ref range); CALCIUM 8.8 mg/dL (8.5-10.1); CARBON DIOXIDE,CO2 27 mmol/L (21-32); CHLORIDE,CL 103 mmol/L (98-107); CREATININE 2.05 mg/dL (0.70-1.30); GLUCOSE RANDOM 143 mg/dL (70-99); LACTIC ACID 0.9 mmol/L (0.4-2.0); MAGNESIUM 2.1 mg/dL (1.8-2.4); POTASSIUM,K 4.4 mmol/L (3.5-5.1); PROTEIN TOTAL,TP 7.4 g/dL (6.4-8.2); SODIUM,NA 140 mmol/L (136-145)
[2023-04-23 00:27] LABS: C-REACTIVE PROTEIN < 0.2 mg/dL (0.0-0.9); ESTIMATED GFR 35 mL/min (>=60); ETHANOL BLOOD MEDICAL < 3 mg/dL (0)
[2023-04-23 00:32] LABS: PROTHROMBIN TIME 10.2 SEC (9.0-12.0); PTT,PARTIAL THROMBOPLSTIN TIME 26.2 SEC (22.0-34.0)
[2023-04-23 00:33] LABS: B-TYPE NATRIURETIC PEPTIDE,BNP 13 pg/ml (0-100)
[2023-04-23] MEDS ORDERED: Sodium Chloride 0.9% 1,000 ML IV ONE (00:45)
== END 2023-04-23 01:50 | disposition home or self-care (01) ==
LOC: DL.ED 23:36
DX: R07.89 Other chest pain (principal); R40.0 Somnolence; E11.9 Type 2 diabetes mellitus without complications; E66.9 Obesity, unspecified; F17.210 Nicotine dependence, cigarettes, uncomplicated; Z68.30 Body mass index [BMI] 30.0-30.9, adult; Z86.73 Personal history of transient ischemic attack (TIA), and cerebral infarction without residual deficits; Z88.1 Allergy status to other antibiotic agents; Z88.0 Allergy status to penicillin; Z79.82 Long term (current) use of aspirin; Z79.899 Other long term (current) drug therapy
CPT/HCPCS: 36415; 70450; 71045; 72125; 80053; 80307; 82140; 83605; 83735; 83880; 84145; 84484; 85025; 85610; 85730; 86140; 93005; 96360; 99285-25; J3490; J7030

== ENCOUNTER 2023-08-05 14:51 | Emergency (ER) | payer MEDICARE, MEDICAID ==
[2023-08-05 15:31] LABS: BASOPHILS PERCENT AUTO 0.2 % (0.0-1.0); EOSINOPHILS PERCENT AUTO 1.5 % (1.0-3.0); HEMATOCRIT 46.3 % (40.0-54.0); HEMOGLOBIN 15.4 g/dL (14.0-18.0); LYMPHOCYTES PERCENT AUTO 20.6 % (20.5-50.1); MEAN CORPUSCULAR HEMOGLOBIN 29.4 pg (27.0-34.0); MEAN CORPUSCULAR HGB CONC 33.3 g/dL (33.0-35.0); MEAN CORPUSCULAR VOLUME 88.5 fL (80-100); MONOCYTES PERCENT AUTO 7.5 % (2-8); NEUTROPHILS PERCENT AUTO 70.2 % (42.2-75.2); PLATELET COUNT,PLT 207 10^3/uL (150-450); RED BLOOD CELL COUNT 5.23 10^6/uL (4.6-6.2); WHITE BLOOD CELL COUNT,WBC 8.7 10^3/uL (5.0-10.0)
[2023-08-05 15:46] LABS: A/G RATIO 0.9; ALANINE AMINOTRANSFERASE,ALT 22 U/L (16-63); ALBUMIN 3.5 g/dL (3.4-5.0); ALKALINE PHOSPHATASE 136 U/L (46-116); ANION GAP 11.5 mEq/L (7-13); ASPARTATE AMNIOTRANSFERASE,AST 18 U/L (15-37); BILIRUBIN TOTAL 0.9 mg/dL (0.2-1.0); BLOOD UREA NITROGEN,BUN 19 mg/dL (7-18); BUN/CREATININE RATIO 12.1 (No establ ref range); CALCIUM 8.5 mg/dL (8.5-10.1); CARBON DIOXIDE,CO2 25 mmol/L (21-32); CHLORIDE,CL 105 mmol/L (98-107); CREATININE 1.57 mg/dL (0.70-1.30); GLUCOSE RANDOM 120 mg/dL (70-99); POTASSIUM,K 4.5 mmol/L (3.5-5.1); PROTEIN TOTAL,TP 7.6 g/dL (6.4-8.2); SODIUM,NA 137 mmol/L (136-145)
[2023-08-05 15:47] LABS: ESTIMATED GFR 47 mL/min (>=60)
[2023-08-05 15:54] VITALS: BP 149/100; PULSE 93
[2023-08-05 15:56] LABS: B-TYPE NATRIURETIC PEPTIDE,BNP 9 pg/ml (0-100)
[2023-08-05 16:11] LABS: CORONAVIRUS COVID-19 NAA NEGATIVE (NEGATIVE); INFLUENZA A NAA NEGATIVE (NEGATIVE); INFLUENZA B NAA NEGATIVE (NEGATIVE)
[2023-08-05] MEDS ORDERED: Lactated Ringers 1,000 ML IV ONE (16:14)
[2023-08-05] MEDS ORDERED: Take Home: Doxycycline 100 MG Cap, 4 Cap Pack PO ONE (17:55)
== END 2023-08-05 20:30 | disposition home or self-care (01) ==
LOC: DL.ED 14:51
DX: T82.897A Other specified complication of cardiac prosthetic devices, implants and grafts, initial encounter (principal); J40 Bronchitis, not specified as acute or chronic; I25.10 Atherosclerotic heart disease of native coronary artery without angina pectoris; E78.00 Pure hypercholesterolemia, unspecified; I25.2 Old myocardial infarction; I12.9 Hypertensive chronic kidney disease with stage 1 through stage 4 chronic kidney disease, or unspecified chronic kidney disease; E11.22 Type 2 diabetes mellitus with diabetic chronic kidney disease; N18.9 Chronic kidney disease, unspecified; E66.9 Obesity, unspecified; Z79.899 Other long term (current) drug therapy; Z79.82 Long term (current) use of aspirin; Z88.8 Allergy status to other drugs, medicaments and biological substances; Z88.0 Allergy status to penicillin; Z20.822 Contact with and (suspected) exposure to COVID-19
CPT/HCPCS: 0240U; 36415; 71046; 80053; 83880; 84484; 85025; 93005; 93010; 99284; 99285; A9270-GY; J7120

== ENCOUNTER 2024-05-10 20:58 | Emergency (ER) | payer MEDICARE, MEDICAID ==
[2024-05-10 20:00] LABS: BASOPHILS PERCENT AUTO 0.2 % (0.0-1.0); EOSINOPHILS PERCENT AUTO 3.3 % (1.0-3.0); HEMATOCRIT 48.5 % (40.0-54.0); HEMOGLOBIN 15.9 g/dL (14.0-18.0); LYMPHOCYTES PERCENT AUTO 18.3 % (20.5-50.1); MEAN CORPUSCULAR HEMOGLOBIN 29.5 pg (27.0-34.0); MEAN CORPUSCULAR HGB CONC 32.8 g/dL (33.0-35.0); MONOCYTES PERCENT AUTO 6.5 % (2-8); NEUTROPHILS PERCENT AUTO 71.7 % (42.2-75.2); PLATELET COUNT,PLT 159 10^3/uL (150-450); RED BLOOD CELL COUNT 5.39 10^6/uL (4.6-6.2); WHITE BLOOD CELL COUNT,WBC 8.8 10^3/uL (5.0-10.0)
[2024-05-10 20:12] LABS: APPEARANCE,URINE SLIGHTLY CLOUDY (CLEAR); BILIRUBIN,URINE SMALL (NEGATIVE); COLOR,URINE DARK YELLOW (YELLOW); GLUCOSE,URINE NEGATIVE (NEGATIVE); KETONES,URINE TRACE (NEGATIVE); LEUKOCYTE ESTERASE,URINE NEGATIVE (NEGATIVE); NITRITE,URINE NEGATIVE (NEGATIVE); OCCULT BLOOD,URINE NEGATIVE (NEGATIVE); PH,URINE 5.5 (5.0-9.0); PROTEIN,URINE 100 (NEGATIVE)
[2024-05-10 20:16] LABS: AMPHETAMINES,URINE NEGATIVE (NEGATIVE); BARBITURATES,URINE NEGATIVE (NEGATIVE); BENZODIAZEPINE,URINE NEGATIVE (NEGATIVE); MDMA (ECSTASY), URINE NEGATIVE (NEGATIVE); METHADONE,URINE NEGATIVE (NEGATIVE); METHAMPHETAMINES,URINE NEGATIVE (NEGATIVE); OPIATES,URINE NEGATIVE (NEGATIVE); OXYCODONE,URINE NEGATIVE (NEGATIVE); PHENCYCLIDINE,URINE NEGATIVE (NEGATIVE); TCA,URINE NEGATIVE (NEGATIVE)
[2024-05-10 20:25] LABS: ALANINE AMINOTRANSFERASE,ALT 32 U/L (16-63); ALKALINE PHOSPHATASE 132 U/L (46-116); ANION GAP 14.2 mEq/L (7-13); ASPARTATE AMNIOTRANSFERASE,AST 19 U/L (15-37); BILIRUBIN TOTAL 1.8 mg/dL (0.2-1.0); BLOOD UREA NITROGEN,BUN 32 mg/dL (7-18); CALCIUM 9.1 mg/dL (8.5-10.1); CARBON DIOXIDE,CO2 25 mmol/L (21-32); CHLORIDE,CL 104 mmol/L (98-107); CREATININE 2.28 mg/dL (0.70-1.30); GLUCOSE RANDOM 138 mg/dL (70-99); MAGNESIUM 2.2 mg/dL (1.8-2.4); POTASSIUM,K 4.2 mmol/L (3.5-5.1); PROTEIN TOTAL,TP 7.9 g/dL (6.4-8.2); SODIUM,NA 139 mmol/L (136-145)
[2024-05-10 20:27] LABS: ESTIMATED GFR 30 mL/min (>=60)
[2024-05-10 20:34] LABS: AMORPHOUS SEDIMENT,URINE FEW /HPF (NOT SEEN); BACTERIA,URINE MODERATE /HPF (0-FEW/HPF); EPITHELIAL CELLS,URINE FEW /HPF (NOT SEEN); HYALINE CASTS,URINE FEW; MUCUS,URINE MANY /LPF (NOT SEEN); RBC,URINE 0-5 /HPF (0-5)
[2024-05-10 20:39] VITALS: BP 139/86; PULSE 96
[2024-05-10] MEDS: Sodium Chloride 0.9% 1,000 ML IV ONE (20:47)
[2024-05-10] MEDS: Diphtheria,Pertussis(Acell),Tetanus Vaccine 0.5 ML Syringe IM ONE (21:34)
== END 2024-05-10 22:40 | disposition home or self-care (01) ==
LOC: DL.ED 20:58
DX: R07.89 Other chest pain (principal); N18.9 Chronic kidney disease, unspecified; E66.9 Obesity, unspecified; Z68.34 Body mass index [BMI] 34.0-34.9, adult; Z79.899 Other long term (current) drug therapy; Z79.82 Long term (current) use of aspirin; Z79.890 Hormone replacement therapy; Z88.0 Allergy status to penicillin; Z88.1 Allergy status to other antibiotic agents; Z88.8 Allergy status to other drugs, medicaments and biological substances
CPT/HCPCS: 36415; 71046; 80053; 80305-QW; 81001; 83735; 84484; 85025; 90471; 90715; 93005; 93010; 96360; 99284; 99285-25; J7030

== ENCOUNTER 2024-07-16 05:40 | Emergency (ER) | payer MEDICARE, MEDICAID ==
[2024-07-16] MEDS ORDERED: Sodium Chloride 0.9% 10 ML Syringe FLUSH PRN (05:51)
[2024-07-16] MEDS: Aspirin 81 MG Tab.Chew PO ONE (05:58)
[2024-07-16 06:00] LABS: BASOPHILS PERCENT AUTO 0.2 % (0.0-1.0); HEMATOCRIT 41.7 % (40.0-54.0); LYMPHOCYTES PERCENT AUTO 19.9 % (20.5-50.1); MEAN CORPUSCULAR HEMOGLOBIN 30.4 pg (27.0-34.0); MEAN CORPUSCULAR HGB CONC 33.6 g/dL (33.0-35.0); MEAN CORPUSCULAR VOLUME 90.5 fL (80-100); MONOCYTES PERCENT AUTO 9.4 % (2-8); NEUTROPHILS PERCENT AUTO 63.5 % (42.2-75.2); PLATELET COUNT,PLT 131 10^3/uL (150-450); RED BLOOD CELL COUNT 4.61 10^6/uL (4.6-6.2); WHITE BLOOD CELL COUNT,WBC 10.1 10^3/uL (5.0-10.0)
[2024-07-16 06:21] LABS: ALBUMIN 3.7 g/dL (3.4-5.0); BILIRUBIN TOTAL 1.3 mg/dL (0.2-1.0); BUN/CREATININE RATIO 21.2 (No establ ref range); CALCIUM 8.8 mg/dL (8.5-10.1); CREATININE 2.17 mg/dL (0.70-1.30); EST CRCL DRUG DOSING (CG) 35.8 mL/min; PROTEIN TOTAL,TP 7.3 g/dL (6.4-8.2)
[2024-07-16 06:54] LABS: PROTHROMBIN TIME 10.7 SEC (9.0-12.0); PTT,PARTIAL THROMBOPLSTIN TIME 26.1 SEC (22.0-34.0)
== END 2024-07-16 07:20 ==
LOC: DL.ED 05:40
DX: G45.9 Transient cerebral ischemic attack, unspecified (principal); I25.2 Old myocardial infarction; Z87.891 Personal history of nicotine dependence; Z88.0 Allergy status to penicillin; Z88.1 Allergy status to other antibiotic agents; Z88.8 Allergy status to other drugs, medicaments and biological substances; Z79.890 Hormone replacement therapy; Z79.82 Long term (current) use of aspirin; Z79.899 Other long term (current) drug therapy
CPT/HCPCS: 36415; 70450; 80053; 80307; 82947; 84484; 85025; 85610; 85730; 93005; 99285; A9270

== ENCOUNTER 2025-05-31 18:28 | Emergency (ER) | payer MEDICAID, MEDICARE, OTHER ==
[2025-05-31 18:42] VITALS: BP 162/105; PULSE 84
[2025-05-31 19:14] LABS: BASOPHILS PERCENT AUTO 0.3 % (0.0-1.0); EOSINOPHILS PERCENT AUTO 5.1 % (1.0-3.0); LYMPHOCYTES PERCENT AUTO 25.3 % (20.5-50.1); MONOCYTES PERCENT AUTO 7.7 % (2-8); NEUTROPHILS PERCENT AUTO 61.6 % (42.2-75.2); PLATELET COUNT,PLT 134 10^3/uL (150-450); RED BLOOD CELL COUNT 4.60 10^6/uL (4.6-6.2); WHITE BLOOD CELL COUNT,WBC 6.6 10^3/uL (5.0-10.0)
[2025-05-31 19:35] LABS: A/G RATIO 0.9; ALANINE AMINOTRANSFERASE,ALT 22.0 U/L (16-63); ASPARTATE AMNIOTRANSFERASE,AST 17.0 U/L (15-37); BILIRUBIN TOTAL 0.9 mg/dL (0.2-1.0); BLOOD UREA NITROGEN,BUN 19.0 mg/dL (7-18); CARBON DIOXIDE,CO2 28.0 mmol/L (21-32); CHLORIDE,CL 109.0 mmol/L (98-107); CREATININE 1.28 mg/dL (0.70-1.30); EST CRCL DRUG DOSING (CG) 60.69 mL/min; ESTIMATED GFR 60.0 mL/min (>=60); GLUCOSE RANDOM 104.0 mg/dL (70-99); POTASSIUM,K 4.7 mmol/L (3.5-5.1); PROTEIN TOTAL,TP 7.6 g/dL (6.4-8.2); SODIUM,NA 144.0 mmol/L (136-145)
[2025-05-31 19:44] LABS: INR 1.0 (0.9-1.2); PTT,PARTIAL THROMBOPLSTIN TIME 25.9 SEC (22.0-34.0)
[2025-05-31] MEDS: fentaNYL 100 MCG/2 ML SDV IM ONE (20:11)
== END 2025-05-31 20:20 | disposition home or self-care (01) ==
LOC: DL.ED 18:28
DX: I82.622 Acute embolism and thrombosis of deep veins of left upper extremity (principal); I25.2 Old myocardial infarction; F17.200 Nicotine dependence, unspecified, uncomplicated; Z79.899 Other long term (current) drug therapy; Z88.1 Allergy status to other antibiotic agents; Z88.0 Allergy status to penicillin; Z88.8 Allergy status to other drugs, medicaments and biological substances
CPT/HCPCS: 36415; 80053; 85025; 85610; 85730; 96372; 99283; A9270; J3010; 99284

== ENCOUNTER 2025-06-01 18:24 | Emergency (ER) | payer SELFPAY | END 2025-06-01 19:05 | disposition left against medical advice (07) | LOC: DL.ED 18:24 | DX: Z53.21 Procedure and treatment not carried out due to patient leaving prior to being seen by health care provider (principal) ==

== ENCOUNTER 2025-06-20 15:34 | Emergency (ER) | payer MEDICARE, OTHER ==
[2025-06-20 17:42] VITALS: BP 149/95; PULSE 70
== END 2025-06-20 17:55 | disposition home or self-care (01) ==
LOC: DL.ED 15:34
DX: M79.81 Nontraumatic hematoma of soft tissue (principal); M79.602 Pain in left arm; I25.2 Old myocardial infarction; F17.200 Nicotine dependence, unspecified, uncomplicated; Z95.5 Presence of coronary angioplasty implant and graft; Z79.899 Other long term (current) drug therapy; Z79.82 Long term (current) use of aspirin; Z88.0 Allergy status to penicillin; Z88.8 Allergy status to other drugs, medicaments and biological substances; Z79.01 Long term (current) use of anticoagulants; Z88.1 Allergy status to other antibiotic agents
CPT/HCPCS: 93971; 99283; 99284